=== PATIENT | male | born 1930 | race Hispanic/Latino ===

== ENCOUNTER 2016-07-29 19:24 | Inpatient (IN) | payer MEDICARE ==
[2016-07-29] MEDS ORDERED: TYLENOL PO STA (22:15)
[2016-07-29] MEDS ORDERED: NACL 0.9% 1000 ML 1,000 ML IV ONE (22:15)
[2016-07-29 23:10] LABS: Basophils % (Auto) 0.1 % (0.0-1.8); Hematocrit 39.4 % (35.5-45.6); Hemoglobin 13.5 gm/dl (11.8-15.2); Mean Corpuscular HGB Conc 34 % (32-34); Mean Corpuscular Hemoglobin 31 pg (28-32); Mean Corpuscular Volume 90 fl (84-94); Platelet Count 210 K/mm3 (140-440); Red Blood Count 4.37 M/mm3 (3.65-5.03); Red Cell Distribution Width 14.3 % (13.2-15.2); White Blood Count 19.4 K/mm3 (4.5-11.0)
[2016-07-29] MEDS ORDERED: BOOSTRIX IM ONE (23:21)
[2016-07-29] MEDS ORDERED: VANCOMYCIN VIAL IV ONE (23:21)
[2016-07-29] MEDS ORDERED: ZOSYN/NS 4.5GM/100ML 100 ML IV ONE (23:21)
[2016-07-29 23:22] LABS: INR 1.98 (0.87-1.13)
--- NOTE | 2016-07-29 23:24 | Emergency Department Report ---
ED General Adult HPI - General Chief complaint: Wound/Laceration Stated complaint: RT ELBOW SWELLING Time Seen by Provider: 07/29/16 23:15 Source: patient, EMS, old records reviewed Mode of arrival: Stretcher Limitations: Altered Mental Status - History of Present Illness Initial comments: This is an 85-year-old male, previously unknown. Has a history of heart disease status post bypass, psoriasis, hypertension, dementia. He is on systemic anticoagulation ( pradaxa.) Is enclosed medical records do not clarify why. He is sent to the ER for hypotension, and right upper extremity redness and swelling. As per enclosed medical records, patient apparently has been lethargic and hypotensive, and has a swollen right elbow secondary to fall on July 28. Patient is pleasantly demented and confused, and he cannot describe any exacerbating or relieving factors. He denies headache, neck pain, chest pain, abdominal pain and shortness of breath. He does admit to right upper extremity pain, but cannot further clarified. -: unknown Radiation: extremity Quality: other (as per history of present illness) Consistency: other (as per history of present illness) Improves with: other (as per history of present illness) Worsens with: other (as per history of present illness) Associated Symptoms: confusion, other (as per history of present illness) - Related Data Home Medications Medication Instructions Recorded Confirmed Last Taken Acetaminophen 2 tab PO Q4H PRN 07/30/16 07/30/16 Unknown Albuterol Sulfate [Ventolin HFA] 2 puff IH Q6H PRN 07/30/16 07/30/16 Unknown Dabigatran [Pradaxa] 150 mg PO BID 07/30/16 07/30/16 Unknown Furosemide [Lasix] 20 mg PO QDAY 07/30/16 07/30/16 Unknown Lisinopril [Zestril] 5 mg PO QDAY 07/30/16 07/30/16 Unknown Mag Hydrox/Al Hydrox/Simeth 30 ml PO Q2H PRN 07/30/16 07/30/16 Unknown [Maalox Advanced Suspension] Magnesium Hydroxide [Milk of 30 ml PO Q12H PRN 07/30/16 07/30/16 Unknown Magnesia] Metoprolol Xl [Metoprolol 25 mg PO QDAY 07/30/16 07/30/16 Unknown SUCCINATE ER TAB] OLANzapine [ZyPREXA] 5 mg PO BID 07/30/16 07/30/16 Unknown Pantoprazole [Protonix] 40 mg PO QDAY 07/30/16 07/30/16 Unknown Simvastatin [Zocor TAB] 20 mg PO QHS 07/30/16 07/30/16 Unknown chlorproMAZINE [Thorazine INJ] 25 mg IM Q4H PRN 07/30/16 07/30/16 Unknown Allergies Allergy/AdvReac Type Severity Reaction Status Date / Time No Known Allergies Allergy Verified 07/29/16 22:15 ED Review of Systems ROS: Stated complaint: RT ELBOW SWELLING Other details as noted in HPI Comment: Unobtainable due to pts medical conditions Constitutional: fever, malaise, weakness Eyes: as per HPI ENT: as per HPI Respiratory: see HPI Cardiovascular: as per HPI Gastrointestinal: as per HPI Genitourinary: as per HPI Musculoskeletal: as per HPI, joint swelling, arthralgia, myalgia Skin: rash, lesions Neurological: weakness, confusion Psychiatric: as per HPI ED Past Medical Hx - Past Medical History Previous Medical History?: Yes Hx Hypertension: Yes Hx Dementia: Yes Additional medical history: CAD - Surgical History Past Surgical History?: Yes Hx Open Heart Surgery: Yes - Social History Smoking Status: Unknown if ever smoked Substance Use Type: None - Medications Home Medications: Home Medications Medication Instructions Recorded Confirmed Last Taken Type Acetaminophen 2 tab PO Q4H PRN 07/30/16 07/30/16 Unknown History Albuterol Sulfate [Ventolin HFA] 2 puff IH Q6H PRN 07/30/16 07/30/16 Unknown History Dabigatran [Pradaxa] 150 mg PO BID 07/30/16 07/30/16 Unknown History Furosemide [Lasix] 20 mg PO QDAY 07/30/16 07/30/16 Unknown History Lisinopril [Zestril] 5 mg PO QDAY 07/30/16 07/30/16 Unknown History Mag Hydrox/Al Hydrox/Simeth 30 ml PO Q2H PRN 07/30/16 07/30/16 Unknown History [Maalox Advanced Suspension] Magnesium Hydroxide [Milk of 30 ml PO Q12H PRN 07/30/16 07/30/16 Unknown History Magnesia] Metoprolol Xl [Metoprolol 25 mg PO QDAY 07/30/16 07/30/16 Unknown History SUCCINATE ER TAB] OLANzapine [ZyPREXA] 5 mg PO BID 07/30/16 07/30/16 Unknown History Pantoprazole [Protonix] 40 mg PO QDAY 07/30/16 07/30/16 Unknown History Simvastatin [Zocor TAB] 20 mg PO QHS 07/30/16 07/30/16 Unknown History chlorproMAZINE [Thorazine INJ] 25 mg IM Q4H PRN 07/30/16 07/30/16 Unknown History ED Physical Exam - General Limitations: Altered Mental Status General appearance: alert, in no apparent distress - Head Head exam: Present: atraumatic, normocephalic - Eye Eye exam: Present: normal appearance, EOMI - ENT ENT exam: Present: normal exam, normal orophraynx, mucous membranes dry - Neck Neck exam: Present: normal inspection, full ROM. Absent: tenderness, meningismus - Respiratory Respiratory exam: Present: normal lung sounds bilaterally. Absent: respiratory distress, wheezes, rales, rhonchi, stridor, chest wall tenderness - Cardiovascular Cardiovascular Exam: Present: regular rate, normal rhythm, normal heart sounds. Absent: bradycardia, tachycardia, irregular rhythm, systolic murmur, diastolic murmur, rubs, gallop - GI/Abdominal GI/Abdominal exam: Present: soft, normal bowel sounds. Absent: distended, tenderness, guarding, rebound, rigid, pulsatile mass - Rectal Rectal exam: Present: deferred - Extremities Exam Extremities exam: Present: full ROM, tenderness, normal capillary refill, joint swelling, other (the left upper extremity is within normal limits. The pelvis is stable. the bilateral lower extremities are unremarkable.Right upper extremity demonstrates erythema, redness, warmth and swelling from the distal bicep to the proximal forearm. The compartments are soft, there is no pain with passive range of motion of the fingers, there is minimal pain with passive range of motion of the elbow. On the posterior/lateral aspect of the right elbow, there is a 1 x 1 cm skin defect, skin avulsion, and some purulent discharge noted. 2+ pulses are noted in 4 extremities.) - Back Exam Back exam: Present: normal inspection, full ROM. Absent: tenderness, CVA tenderness (R), CVA tenderness (L), muscle spasm, paraspinal tenderness, vertebral tenderness - Neurological Exam Neurological exam: Present: altered, other (patient is presently demented. Moves 4 extremities spontaneously. Sensation intact to light touch in 4 extremities.). Absent: motor sensory deficit - Psychiatric Psychiatric exam: Present: other (patient demented) - Skin Skin exam: Present: rash, erythema, abrasion ED Course Vital Signs 07/29/16 07/29/16 07/29/16 21:59 22:00 22:15 Temperature 103.9 F H Pulse Rate 91 H 91 H 91 H Respiratory 22 18 22 Rate Blood Pressure 124/107 102/54 O2 Sat by Pulse 97 96 Oximetry 07/29/16 07/29/16 07/29/16 22:31 22:45 23:00 Temperature Pulse Rate 94 H 86 89 Respiratory 16 15 16 Rate Blood Pressure 122/53 68/35 99/53 O2 Sat by Pulse 95 95 95 Oximetry 07/29/16 07/29/16 07/29/16 23:15 23:17 23:30 Temperature Pulse Rate 85 93 H 91 H Respiratory 16 18 16 Rate Blood Pressure 97/51 97/51 104/57 O2 Sat by Pulse 94 93 93 Oximetry 07/29/16 07/30/16 07/30/16 23:45 00:01 00:02 Temperature Pulse Rate 94 H 92 H 93 H Respiratory 21 17 21 Rate Blood Pressure 104/57 108/79 108/79 O2 Sat by Pulse 92 94 94 Oximetry 07/30/16 07/30/16 07/30/16 00:09 00:15 01:07 Temperature Pulse Rate 94 H 101 H Respiratory 22 14 19 Rate Blood Pressure 113/53 113/53 O2 Sat by Pulse 98 95 Oximetry 07/30/16 07/30/16 07/30/16 01:15 01:31 01:45 Temperature Pulse Rate 94 H 93 H 96 H Respiratory 24 16 20 Rate Blood Pressure 113/53 92/33 91/52 O2 Sat by Pulse 92 92 89 Oximetry 07/30/16 07/30/16 07/30/16 02:01 02:03 02:05 Temperature Pulse Rate 96 H 93 H Respiratory 12 19 20 Rate Blood Pressure 91/52 76/52 O2 Sat by Pulse 87 93 Oximetry 07/30/16 07/30/16 07/30/16 02:07 02:15 02:31 Temperature 102.1 F H Pulse Rate 92 H 95 H Respiratory 14 18 Rate Blood Pressure 93/45 91/50 O2 Sat by Pulse 94 92 Oximetry 07/30/16 07/30/16 07/30/16 02:45 03:00 03:15 Temperature Pulse Rate 115 H 118 H 123 H Respiratory 17 24 14 Rate Blood Pressure 103/58 95/52 95/52 O2 Sat by Pulse 94 95 95 Oximetry 07/30/16 07/30/16 07/30/16 03:31 03:45 04:00 Temperature Pulse Rate 113 H 117 H 115 H Respiratory 21 21 21 Rate Blood Pressure 84/52 84/40 83/47 O2 Sat by Pulse 93 93 92 Oximetry 07/30/16 07/30/16 07/30/16 04:03 04:15 04:30 Temperature Pulse Rate 119 H 122 H 126 H Respiratory 23 21 27 H Rate Blood Pressure 83/47 89/60 99/51 O2 Sat by Pulse 93 94 93 Oximetry 07/30/16 07/30/16 07/30/16 04:45 05:00 05:15 Temperature Pulse Rate 121 H 120 H 125 H Respiratory 18 19 29 H Rate Blood Pressure 102/60 102/57 79/45 O2 Sat by Pulse 94 92 94 Oximetry - Reevaluation(s) Reevaluation #1: 07/30/16 00:10 Differential diagnosis: Intracranial injury, cervical spine injury, urinary tract infection, pneumonia, right upper extremity cellulitis, myositis, abscess Assessment and plan: 85-year-old male with fever, elevated lactic acid, obvious right upper extremity cellulitis and infection, borderline renal insufficiency which apparently is chronic. He will require aggressive IV antibiotic therapy, IV fluids. Noncontrast CAT scan of the head and cervical spine are pending. Blood cultures, urine cultures, wound cultures are ordered. Patient to remain in the ER pending results of the CAT scans. Assuming no intracranial bleed, patient to be admitted. Dr Calhoun accepts patient assuming no indication for transfer Reevaluation #2: 07/30/16 02:19 Blood pressure in the 70s/80s. Patient is finishing up later 3. We will order a fourth liter of IV fluid, and place a central line to initiate vasopressor therapy. 07/30/16 03:18 Right-sided femoral sterile central line was placed by myself. We attempted to contact family, nobody answered. Given the patient meets sepsis criteria and is demonstrating signs of hemodynamic instability, he is administratively consented by myself and Dr. Calhoun for central line. 07/30/16 03:18 - Central Line Placement Right Femoral Consent Obtained: emergent situation Time Out Performed: Yes Patient Placed on Monitor/Pulse Ox: Yes Prep: mask, gown Central Line Prep: Povidone-Iodine 1%, Chlorhexidine scrub, sterile drapes applied Local Anesthesia Used: Lidocaine 1%, with Epi Amount of Anesthesia Used (mls): 8 Ultrasound Used for Placement: Yes Central Line Lumen Inserted: triple Bloods Obtained for Lab: No Central Line Position: good blood return, all ports aspirated, flus, sutured in place with 2-0 Dressing Applied: Tegaderm Patient Tolerated Procedure: well Complications: arterial puncture/cannula (initially attempted right-sided internal jugular placement. Right carotid artery was cannulated. Needle was retracted, direct pressure was held for 5 minutes. After pressure was withdrawn , no obvious hematoma or expansile mass was noted. The right-sided attempt was aborted, and in the right femoral approach was then taken, after the patient was reprepped, and redraped. The right femoral vein was cannulated with one attempt with ultrasound guidance with no obvious complications.) ED Medical Decision Making - Lab Data Result diagrams: 07/29/16 22:15 07/29/16 22:55 Vital Signs 07/29/16 07/29/16 07/29/16 21:59 22:00 22:15 Temperature 103.9 F H Pulse Rate 91 H 91 H 91 H Respiratory 22 18 22 Rate Blood Pressure 124/107 102/54 O2 Sat by Pulse 97 96 Oximetry 07/29/16 07/29/16 07/29/16 22:31 22:45 23:00 Temperature Pulse Rate 94 H 86 89 Respiratory 16 15 16 Rate Blood Pressure 122/53 68/35 99/53 O2 Sat by Pulse 95 95 95 Oximetry 07/29/16 07/29/16 07/29/16 23:15 23:17 23:30 Temperature Pulse Rate 85 93 H 91 H Respiratory 16 18 16 Rate Blood Pressure 97/51 97/51 104/57 O2 Sat by Pulse 94 93 93 Oximetry 07/29/16 07/30/16 23:45 00:01 Temperature Pulse Rate 94 H 92 H Respiratory 21 17 Rate Blood Pressure 104/57 108/79 O2 Sat by Pulse 92 94 Oximetry Lab Results 07/29/16 07/29/16 07/29/16 Range/Units 22:15 22:55 22:55 WBC 19.4 H (4.5-11.0) K/mm3 RBC 4.37 (3.65-5.03) M/mm3 Hgb 13.5 (11.8-15.2) gm/dl Hct 39.4 (35.5-45.6) % MCV 90 (84-94) fl MCH 31 (28-32) pg MCHC 34 (32-34) % RDW 14.3 (13.2-15.2) % Plt Count 210 (140-440) K/mm3 Lymph % (Auto) 5.4 L (13.4-35.0) % [place] % (Auto) 4.6 (0.0-7.3) % Eos % (Auto) 0.0 (0.0-4.3) % Baso % (Auto) 0.1 (0.0-1.8) % Lymph # 1.0 L (1.2-5.4) K/mm3 [place] # 0.9 H (0.0-0.8) K/mm3 Eos # 0.0 (0.0-0.4) K/mm3 Baso # 0.0 (0.0-0.1) K/mm3 Seg Neutrophils % 89.9 H (40.0-70.0) % Seg Neutrophils # 17.5 H (1.8-7.7) K/mm3 PT 22.5 H (12.2-14.9) Sec. INR 1.98 H (0.87-1.13) VBG pH (7.320-7.420) Sodium 134 L (137-145) mmol/L Potassium 3.8 (3.6-5.0) mmol/L Chloride 96.6 L (98-107) mmol/L Carbon Dioxide 21 L (22-30) mmol/L Anion Gap 20 mmol/L BUN 36 H (9-20) mg/dL Creatinine 1.5 (0.8-1.5) mg/dL Estimated GFR 45 ml/min BUN/Creatinine Ratio 24.00 % Glucose 96 (75-100) mg/dL Lactic Acid (0.7-2.0) mmol/L Calcium 8.1 L (8.4-10.2) mg/dL Total Bilirubin 1.2 (0.1-1.2) mg/dL AST 55 H (5-40) units/L ALT 22 (7-56) units/L Alkaline Phosphatase 56 (35-129) units/L Total Protein 5.8 L (6.3-8.2) g/dL Albumin 2.9 L (3.9-5) g/dL Albumin/Globulin Ratio 1.0 % 07/29/16 07/29/16 Range/Units 22:55 22:55 WBC (4.5-11.0) K/mm3 RBC (3.65-5.03) M/mm3 Hgb (11.8-15.2) gm/dl Hct (35.5-45.6) % MCV (84-94) fl MCH (28-32) pg MCHC (32-34) % RDW (13.2-15.2) % Plt Count (140-440) K/mm3 Lymph % (Auto) (13.4-35.0) % [place]ner % (Auto) (0.0-7.3) % Eos % (Auto) (0.0-4.3) % Baso % (Auto) (0.0-1.8) % Lymph # (1.2-5.4) K/mm3 [place] # (0.0-0.8) K/mm3 Eos # (0.0-0.4) K/mm3 Baso # (0.0-0.1) K/mm3 Seg Neutrophils % (40.0-70.0) % Seg Neutrophils # (1.8-7.7) K/mm3 PT (12.2-14.9) Sec. INR (0.87-1.13) VBG pH 7.405 (7.320-7.420) Sodium (137-145) mmol/L Potassium (3.6-5.0) mmol/L Chloride (98-107) mmol/L Carbon Dioxide (22-30) mmol/L Anion Gap mmol/L BUN (9-20) mg/dL Creatinine (0.8-1.5) mg/dL Estimated GFR ml/min BUN/Creatinine Ratio % Glucose (75-100) mg/dL Lactic Acid 3.4 H* (0.7-2.0) mmol/L Calcium (8.4-10.2) mg/dL Total Bilirubin (0.1-1.2) mg/dL AST (5-40) units/L ALT (7-56) units/L Alkaline Phosphatase (35-129) units/L Total Protein (6.3-8.2) g/dL Albumin (3.9-5) g/dL Albumin/Globulin Ratio % - EKG Data 07/30/16 00:11 Normal sinus, first-degree AV block, 88 bpm, left axis deviation, normal QTC, nonspecific T-wave abnormality, motion artifact noted, not morphologically consistent with STEMI. - Radiology Data Radiology results: report reviewed, image reviewed interpreted by me: xr chest: chronic changes noted, status post median sternotomy, no acute disease. Pelvis x-ray demonstrates DJD, no acute disease or pathology. Right upper extremity elbow x-ray: Tissue swelling, no acute disease or pathology. No obvious fracture. No obvious gas Repeat chest x-ray status post central line attempts demonstrates no pneumothorax. Chronic changes are noted. Right upper extremity noncontrast CAT scan of the arm demonstrates subcutaneous fat stranding and edema, no fracture, suspected cellulitis, no definable abscess is noted. Critical Care Time: Yes Critical care time in (mins) excluding proc time.: 45 Critical care attestation.: If time is entered above; I have spent that time in minutes in the direct care of this critically ill patient, excluding procedure time. Critical Care Time: Critical care time includes multiple bedside evaluations, interpretation of laboratory studies, radiology studies, time spent managing a patient who is critically ill with sepsis secondary to soft tissue infection. This excludes procedure time. ED Disposition Clinical Impression: Sepsis Qualifiers: Sepsis type: sepsis due to unspecified organism Qualified Code(s): A41.9 - Sepsis, unspecified organism Disposition: OP ADMITTED IP TO THIS HOSP Is pt being admited?: Yes Does the pt Need Aspirin: No Condition: Fair
[2016-07-29 23:31] LABS: Albumin 2.9 g/dL (3.9-5); Bilirubin,Total 1.2 mg/dL (0.1-1.2); Calcium 8.1 mg/dL (8.4-10.2); Chloride 96.6 mmol/L (98-107); Potassium 3.8 mmol/L (3.6-5.0); Total Protein 5.8 g/dL (6.3-8.2)
[2016-07-29] MEDS ORDERED: NACL 0.9% 500 ML IV SCH (23:45)
[2016-07-29] MEDS ORDERED: NACL 0.9% 1000 ML 1,000 ML ONE (23:45)
[2016-07-29] MEDS ORDERED: VANCOMYCIN PHARMACY TO DOSE IV SCH (23:45)
--- NOTE | 2016-07-30 00:47 | Cat Scan Report ---
FINAL REPORT EXAM: CT HEAD/BRAIN WO CON HISTORY: fall ams COMPARISON: None available. TECHNIQUE: Axial images obtained skull base through vertex. FINDINGS: No acute intracranial hemorrhage, midline shift or pathologic extra axial fluid collection. Age related volume loss with compensatory dilatation of the ventricular system and chronic small vessel ischemic disease. Remote posterior left frontal and temporal lobe infarct measuring approximately 1.6 x 1.6 centimeters in axial dimension. Otherwise, mendoza-white differentiation preserved. Calvarium grossly intact. Moderate polypoid mucosal thickening along the floors of the maxillary sinuses. Mastoid air cells are clear. Moderate calcification of carotid siphons and left vertebral artery. Visualized orbits are grossly unremarkable. IMPRESSION: No grossly acute intracranial abnormality. Mild age related volume loss and chronic small vessel ischemic disease. Remote left frontal temporal lobe infarct.
[2016-07-30] MEDS ORDERED: NACL 0.9% 1000 ML IV ONE (01:00)
[2016-07-30] MEDS ORDERED: VANCOMYCIN VIAL 1,250 MG in NACL 0.9% 250ML 250 ML IV ONE (01:00)
--- NOTE | 2016-07-30 01:00 | Cat Scan Report ---
FINAL REPORT EXAM: CT CERVICAL SPINE WO CON HISTORY: fall ams COMPARISON: None available. TECHNIQUE: Axial images obtained through the cervical spine. Additional sagittal and coronal reformatted images were obtained. FINDINGS: Normal lordotic curvature of the cervical spine. Cervical vertebral body heights are preserved. No acute fracture or traumatic subluxation. Odontoid process, articular pillars and occipital condyles are intact. No significant bony encroachment on the central canal. Mild to moderate right foraminal narrowing at several levels due to facet degenerative changes and uncovertebral hypertrophy. Prominent calcification at the right carotid bifurcation. IMPRESSION: No acute fracture or subluxation of the cervical spine. Mild to moderate right-sided foraminal narrowing at several levels due to facet degenerative changes and uncovertebral hypertrophy. No significant bony degenerative changes otherwise.
[2016-07-30] MEDS ORDERED: NACL 0.9% 1000 ML 1,000 ML IV ONE ×2 (01:32→02:17)
--- NOTE | 2016-07-30 01:38 | History and Physical Report ---
History of Present Illness Chief complaint: confusion History of present illness: 85 YO Male with HTN, Dementia, CAD S/P CABG, Debility, Fall, HLD, CHF(suspected ) presents to ED for evaluation. Pt unable to provide history. Pt found to have Hypotension and transported to ED for evaluation. Pt found to have arm cellulitis In ED, as well as hypotension and sepsis. Pt admitted to ICU. Past History Past Medical History: CAD, hyperlipidemia Past Surgical History: CABG Social history: Family history: hypertension Medications and Allergies Allergies Allergy/AdvReac Type Severity Reaction Status Date / Time No Known Allergies Allergy Verified 07/29/16 22:15 Home Medications Medication Instructions Recorded Confirmed Last Taken Type Acetaminophen 2 tab PO Q4H PRN 07/30/16 07/30/16 Unknown History Albuterol Sulfate [Ventolin HFA] 2 puff IH Q6H PRN 07/30/16 07/30/16 Unknown History Dabigatran [Pradaxa] 150 mg PO BID 07/30/16 07/30/16 Unknown History Furosemide [Lasix] 20 mg PO QDAY 07/30/16 07/30/16 Unknown History Lisinopril [Zestril] 5 mg PO QDAY 07/30/16 07/30/16 Unknown History Mag Hydrox/Al Hydrox/Simeth 30 ml PO Q2H PRN 07/30/16 07/30/16 Unknown History [Maalox Advanced Suspension] Magnesium Hydroxide [Milk of 30 ml PO Q12H PRN 07/30/16 07/30/16 Unknown History Magnesia] Metoprolol Xl [Metoprolol 25 mg PO QDAY 07/30/16 07/30/16 Unknown History SUCCINATE ER TAB] OLANzapine [ZyPREXA] 5 mg PO BID 07/30/16 07/30/16 Unknown History Pantoprazole [Protonix] 40 mg PO QDAY 07/30/16 07/30/16 Unknown History Simvastatin [Zocor TAB] 20 mg PO QHS 07/30/16 07/30/16 Unknown History chlorproMAZINE [Thorazine INJ] 25 mg IM Q4H PRN 07/30/16 07/30/16 Unknown History Active Meds: Active Medications Vancomycin HCl 1,250 mg/ (Sodium Chloride) 250 mls @ 166.667 mls/hr IV Q24H ORLIN Vancomycin HCl 1,250 mg/ (Sodium Chloride) 250 mls @ 166.667 mls/hr IV ONCE.ED ONE Stop: 07/30/16 02:29 Sodium Chloride (Nacl 0.9% 1000 Ml) 1,000 mls @ 999 mls/hr IV ONCE ONE Stop: 07/30/16 02:32 Vancomycin HCl (Vancomycin Pharmacy To Dose) 1 each IV PKCONSULT ORLIN PRN Reason: Protocol Review of Systems ROS unobtainable: due to mental status Exam - Constitutional Vitals: Temp Pulse Resp BP Pulse Ox 103.9 F H 92 H 22 108/79 98 07/29/16 21:59 07/30/16 00:01 07/30/16 00:09 07/30/16 00:01 07/30/16 00:09 General appearance: Present: severe distress - EENT Eyes: Present: PERRL ENT: hearing intact, clear oral mucosa - Neck Neck: Present: supple, normal ROM - Respiratory Respiratory effort: normal Respiratory: bilateral: diminished - Cardiovascular Heart Sounds: Present: S1 & S2. Absent: rub, click - Extremities Extremities: pulses symmetrical, No edema Peripheral Pulses: within normal limits - Abdominal General gastrointestinal: Present: soft, non-tender, non-distended, normal bowel sounds Male genitourinary: Present: normal - Integumentary Integumentary: Present: clear, warm, dry - Musculoskeletal Musculoskeletal: generalized weakness - Psychiatric Psychiatric: no intact judgment & insight, no memory intact - Neurologic Neurologic: CNII-XII intact, moves all extremities Results - Labs CBC & Chem 7: 07/29/16 22:15 07/29/16 22:55 Labs: Abnormal lab results 07/29/16 07/29/16 07/29/16 Range/Units 22:15 22:55 22:55 WBC 19.4 H (4.5-11.0) K/mm3 Lymph % (Auto) 5.4 L (13.4-35.0) % Lymph # 1.0 L (1.2-5.4) K/mm3 [place] # 0.9 H (0.0-0.8) K/mm3 Seg Neutrophils % 89.9 H (40.0-70.0) % Seg Neutrophils # 17.5 H (1.8-7.7) K/mm3 PT 22.5 H (12.2-14.9) Sec. INR 1.98 H (0.87-1.13) Sodium 134 L (137-145) mmol/L Chloride 96.6 L (98-107) mmol/L Carbon Dioxide 21 L (22-30) mmol/L BUN 36 H (9-20) mg/dL Lactic Acid (0.7-2.0) mmol/L Calcium 8.1 L (8.4-10.2) mg/dL AST 55 H (5-40) units/L Total Creatine Kinase (55-170) units/L Total Protein 5.8 L (6.3-8.2) g/dL Albumin 2.9 L (3.9-5) g/dL 07/29/16 07/29/16 Range/Units 22:55 22:55 WBC (4.5-11.0) K/mm3 Lymph % (Auto) (13.4-35.0) % Lymph # (1.2-5.4) K/mm3 [place] # (0.0-0.8) K/mm3 Seg Neutrophils % (40.0-70.0) % Seg Neutrophils # (1.8-7.7) K/mm3 PT (12.2-14.9) Sec. INR (0.87-1.13) Sodium (137-145) mmol/L Chloride (98-107) mmol/L Carbon Dioxide (22-30) mmol/L BUN (9-20) mg/dL Lactic Acid 3.4 H* (0.7-2.0) mmol/L Calcium (8.4-10.2) mg/dL AST (5-40) units/L Total Creatine Kinase 1143 H (55-170) units/L Total Protein (6.3-8.2) g/dL Albumin (3.9-5) g/dL Assessment and Plan - Patient Problems (1) Sepsis Current Visit: Yes Status: Acute Qualifiers: Sepsis type: sepsis due to unspecified organism Qualified Code(s): A41.9 - Sepsis, unspecified organism Plan to address problem: IV abx, IVF, supportive care, pressor support as clinically indicated, monitor uop q shift. The high probability of a clinically significant, sudden or life threatening deterioration of the [respiratory, cardiac,renal] system(s) required my full and direct attention, intervention and personal management. The aggregate critical care time was [65] minutes. This time is in addition to time spent performing reported procedures but includes the following: [x] Data Review and interpretation [x] Patient assessment and monitoring of vital signs [x] Documentation [x] Medication orders and management (2) Acute renal failure (ARF) Current Visit: Yes Status: Acute Plan to address problem: IVF, monitor uop q shift (3) Cellulitis of arm Current Visit: Yes Status: Acute Plan to address problem: IV abx, supportive care. wound care (4) DVT prophylaxis Current Visit: Yes Status: Acute
[2016-07-30] MEDS ORDERED: TYLENOL PO PRN ×2 (01:40→01:45)
[2016-07-30] MEDS ORDERED: MILK OF MAGNESIA PO PRN (01:45)
[2016-07-30] MEDS ORDERED: ALUM-MAG HYDROX-SIMETH 200-200-20MG/5ML PO PRN (01:45)
[2016-07-30] MEDS ORDERED: PROAIR IH PRN (01:45)
[2016-07-30] MEDS ORDERED: THORAZINE IM PRN (01:45)
[2016-07-30] MEDS ORDERED: PROVENTIL IH PRN (02:04)
[2016-07-30] MEDS ORDERED: KETALAR IV ONE ×2 (02:18→02:22)
[2016-07-30] MEDS ORDERED: XYLOCAINE 2%/EPI 1:100,000 INFILTRATI ONE (02:18)
[2016-07-30] MEDS ORDERED: HALDOL ONE (02:52)
[2016-07-30] MEDS ORDERED: HALDOL IM ONE (02:58)
--- NOTE | 2016-07-30 03:32 | Admit Criteria Form ---
Admission Criteria Documentation: SEPSIS and OTHER FEBRILE ILLNESS, W/O FOCAL INFECTION Clinical Indications for Admission to Inpatient Care ( Place 'X' for any and all applicable criteria): Admission is indicated for ANY ONE of the following (1)(2)(3)(4): [ ] I. Bacteremia [ ]II. Suspected or identified specific infection requiring hospitalization (eg, meningitis, endocarditis) [ ]III. Hemodynamic instability [ ]IV. Altered mental status [ ]V. Failure or unavailability of outpatient antimicrobial treatment [ ]. Hypoxemia [ ]VII. Seizures [ ]VIII. High-risk febrile neutropenia [ ]IX. Need for parenteral antibiotic in patient who is likely to abuse vascular access device (eg, injection drug user) [A](7) [ ]X. Temperature greater than 104.9 degrees F (40.5 degrees C) (oral) [ X]XI. Inpatient admission required rather than observation care because of ANY ONE of the following: [ ]1) Specific infection identified that is too severe for outpatient treatment or observation care trial [X ]2) Metabolic disorder (eg, hypoglycemia, hyperglycemia, metabolic acidosis) that is severe or persistent [ ]3) Temperature greater than 103.1 degrees F (39.5 degrees C) ( oral) that is not responsive to observation care treatment [ ]4) IV fluid to replace significant ongoing (eg, for over 24 hours) losses (> 3 L/m2 per day) [ ]5) Supplemental oxygen or respiratory treatments for over 24 hours that is performable only in acute inpatient setting [ ]6) Parenteral nutrition regimen need that must be implemented on inpatient basis [ ]7) Strict or protective (eg, laminar flow) isolation [ ]8) Other condition, treatment or monitoring requiring inpatient admission Extended stay beyond goal length of stay may be needed for(1)(3) [ ]a) Sepsis or septic shock(22) [ ]b) Positive blood cultures [ ]c) Insufficient oral intake [ ]d) High-risk febrile neutropenia(29)(30) [ ]e) Continued fever and clinical instability [ ]f) Clinically active comorbid illness (e.g,heart failure, renal failure , diabetes) The original [facility] content created by Jewel Castillo has been revised. The portions of the content which have been revised are identified through the use of italic text or in bold, and Jewel Castillo has neither reviewed nor approved the modified material. All other unmodified content is copyright [facility]. Please see references footnoted in the original [facility] edition 2016 Admission Criteria Met: Yes
[2016-07-30] MEDS: LEVOPHED DRIP 4 MG/NS 250 ML 250 ML IV SCH (03:51)
[2016-07-30] MEDS: NACL 0.45% 1000 ML 1,000 ML IV SCH ×2 (04:05→13:32)
[2016-07-30 04:17] LABS: Bilirubin,Urine NEG (Negative); Blood,Urine MOD (Negative); Ketones,Urine NEG (Negative); Leukocyte Esterase,Urine NEG (Negative); Mucus,Urine FEW /HPF; Nitrite,Urine NEG (Negative)
--- NOTE | 2016-07-30 08:01 | XRay Report ---
Portable supine chest: There is a generally coarse overall bronchovascular pattern throughout both lungs. There is a questionable area of focal atelectasis or infiltrate below right hilum. There is no pneumothorax. Coronary bypass changes are noted with a relatively normal-sized heart and vascular congestion. Compared to the recent study of July 29 there is no interval change. Impression: Chronic lung disease with questionable right infrahilar infiltrate.
--- NOTE | 2016-07-30 08:04 | XRay Report ---
Portable chest: There is a generalized increased bronchovascular pattern throughout both lungs. There is a questionable area of atelectasis or small infiltrate below the right hilum. There are bypass changes with normal size heart no vascular congestion. No prior study for comparison. Impression: Chronic lung changes. Questionable right infrahilar infiltrate or atelectasis. Right elbow: There is generalized swelling in the distal proximal arm and forearm. No foreign body and no ulceration. No fracture and no displacement. The bones are well-mineralized. Impression: Nonspecific swelling. AP pelvis: There is no fracture. There is degenerative narrowing of the L4-5 interspace. L5-S1 is not well-visualized. No soft tissue abnormality appreciated. Impression: No acute finding. Degenerative lower lumbar changes.
--- NOTE | 2016-07-30 08:32 | Cat Scan Report ---
FINAL REPORT EXAM: CT UPPER EXTREM RT WO CON HISTORY: rue abscess COMPARISON: None available. TECHNIQUE: Contiguous axial images were obtained. FINDINGS: Prominent subcutaneous fat stranding and skin thickening at the posterior margin of the arm and circumferentially along the visualized portions of the mid to proximal forearm. No definable fluid collection by noncontrast CT. Mild degenerative changes of the elbow joint. No focal bony erosive changes. IMPRESSION: Prominent subcutaneous fat stranding and edema along the arm visualized proximal to mid forearm. In the correct clinical setting, this would be concerning for cellulitis. Nonspecific edema could have a similar appearance. No definable abscess on this noncontrast study. No focal bony erosive changes.
[2016-07-30] MEDS ORDERED: PEPCID IV SCH (10:00)
[2016-07-30] MEDS: TOPROL XL PO SCH (10:57)
[2016-07-30] MEDS: LASIX PO SCH (10:57)
[2016-07-30] MEDS: ZOSYN/NS 4.5GM/100ML 100 ML IV SCH ×3 (10:58→23:29)
[2016-07-30] MEDS: ZESTRIL PO SCH (10:58)
[2016-07-30] MEDS: PROTONIX PO SCH (13:40)
[2016-07-30] MEDS: PRADAXA PO SCH ×2 (13:40→23:29)
[2016-07-30] MEDS ORDERED: TYLENOL PR ONE ×2 (14:10→14:16)
[2016-07-30] MEDS ORDERED: CARDIZEM/D5W 100MG/100ML 100 ML IV ONE (18:44)
[2016-07-30] MEDS: CARDIZEM/D5W 100MG/100ML 100 ML IV SCH (18:55)
[2016-07-30] MEDS ORDERED: NACL 0.45% 500 ML IV SCH (22:00)
[2016-07-30] MEDS ORDERED: VANCOMYCIN VIAL 1,250 MG in NACL 0.9% 250ML 250 ML IV SCH (22:00)
[2016-07-30] MEDS: ZOCOR PO SCH (23:29)
[2016-07-30] MEDS: MORPHINE IV PRN (23:46)
[2016-07-31] MEDS: CARDIZEM/D5W 100MG/100ML 100 ML IV SCH ×2 (00:29→08:29)
[2016-07-31] MEDS: ZOSYN/NS 4.5GM/100ML 100 ML IV SCH (06:45)
[2016-07-31] MEDS: LEVOPHED DRIP 4 MG/NS 250 ML 250 ML IV SCH ×3 (06:45→18:45)
[2016-07-31] MEDS: NACL 0.45% 1000 ML 1,000 ML IV SCH ×2 (08:28→18:45)
[2016-07-31] MEDS: ZESTRIL PO SCH (10:00)
[2016-07-31] MEDS: TOPROL XL PO SCH (10:00)
[2016-07-31] MEDS: LASIX PO SCH (10:00)
[2016-07-31] MEDS ORDERED: NACL 0.9% 1000 ML 2,000 ML IV ONE ×2 (10:56→19:42)
[2016-07-31] MEDS: NACL 0.9% 1000 ML 1,000 ML IV SCH ×2 (12:26→16:12)
--- NOTE | 2016-07-31 12:47 | Consultation ---
History of Present Illness - Reason for Consult Consult date: 07/31/16 Sepsis with shock Requesting physician: CHELSEA RIVERA - History of Present Illness 85 y/o male from senior living, brought to ED secondary to right arm swelling and low BP. Concern for cellulitis and sepsis. Central line placed and started on levophed. Transitioned to the unit for further care. At some point developed afib and was started on dilt drip in conjunction with levophed. No family currently at bedside. Based off nursing report, only given about 1 liters of saline prior to starting vasopressor therapy. Past History Past Medical History: CAD, hyperlipidemia Past Surgical History: CABG Social history: Family history: hypertension Medications and Allergies Allergies Allergy/AdvReac Type Severity Reaction Status Date / Time No Known Allergies Allergy Verified 07/29/16 22:15 Home Medications Medication Instructions Recorded Confirmed Last Taken Type Acetaminophen 2 tab PO Q4H PRN 07/30/16 07/30/16 Unknown History Albuterol Sulfate [Ventolin HFA] 2 puff IH Q6H PRN 07/30/16 07/30/16 Unknown History Dabigatran [Pradaxa] 150 mg PO BID 07/30/16 07/30/16 Unknown History Furosemide [Lasix] 20 mg PO QDAY 07/30/16 07/30/16 Unknown History Lisinopril [Zestril] 5 mg PO QDAY 07/30/16 07/30/16 Unknown History Mag Hydrox/Al Hydrox/Simeth 30 ml PO Q2H PRN 07/30/16 07/30/16 Unknown History [Maalox Advanced Suspension] Magnesium Hydroxide [Milk of 30 ml PO Q12H PRN 07/30/16 07/30/16 Unknown History Magnesia] Metoprolol Xl [Metoprolol 25 mg PO QDAY 07/30/16 07/30/16 Unknown History SUCCINATE ER TAB] OLANzapine [ZyPREXA] 5 mg PO BID 07/30/16 07/30/16 Unknown History Pantoprazole [Protonix] 40 mg PO QDAY 07/30/16 07/30/16 Unknown History Simvastatin [Zocor TAB] 20 mg PO QHS 07/30/16 07/30/16 Unknown History chlorproMAZINE [Thorazine INJ] 25 mg IM Q4H PRN 07/30/16 07/30/16 Unknown History Active Meds: Active Medications Acetaminophen (Tylenol) 650 mg PO Q4H PRN PRN Reason: Headache Al Hydrox/Mg Hydrox/Simethicone (Alum-Mag Hydrox-Simeth [phone]/5ml) 30 ml PO Q2H PRN PRN Reason: Indigestion Albuterol (Proventil) 2.5 mg IH Q6HRT PRN PRN Reason: Shortness Of Breath Chlorpromazine HCl (Thorazine) 25 mg IM Q4H PRN PRN Reason: Agitation Dabigatran (Pradaxa) 150 mg PO BID [facility] Last Admin: 07/30/16 23:29 Dose: 150 mg Furosemide (Lasix) 20 mg PO QDAY [facility] Last Admin: 07/30/16 10:57 Dose: Not Given Sodium Chloride (Nacl 0.45% 1000 Ml) 1,000 mls @ 100 mls/hr IV DIRECT [facility] Last Admin: 07/31/16 08:28 Dose: 100 mls/hr Norepinephrine (Levophed Drip 4 Mg/Ns 250 Ml) 250 mls @ 7.5 mls/hr IV TITR ORLIN ; 2 MCG/MIN PRN Reason: Protocol Last Admin: 07/31/16 06:45 Dose: 22.5 mls/hr Ceftriaxone Sodium (Rocephin/Ns 1 Gm/50 Ml) 50 mls @ 100 mls/hr IV Q24HR [facility] Sodium Chloride (Nacl 0.9% 1000 Ml) 1,000 mls @ 999 mls/hr IV Q1H [facility] Stop: 07/31/16 13:59 Last Admin: 07/31/16 12:26 Dose: 999 mls/hr Lisinopril (Zestril) 5 mg PO QDAY [facility] Last Admin: 07/31/16 10:00 Dose: Not Given Magnesium Hydroxide (Milk Of Magnesia) 30 ml PO Q12H PRN PRN Reason: Constipation Metoprolol Succinate (Toprol Xl) 25 mg PO QDAY [facility] Last Admin: 07/31/16 10:00 Dose: Not Given Morphine Sulfate (Morphine) 2 mg IV Q4H PRN PRN Reason: Pain , Severe (7-10) Last Admin: 07/30/16 23:46 Dose: 2 mg Olanzapine (Zyprexa) 5 mg PO BID [facility] Last Admin: 01/05/17 23:29 Dose: 5 mg Pantoprazole Sodium (Protonix) 40 mg PO QDAY [facility] Last Admin: 07/30/16 13:40 Dose: 40 mg Simvastatin (Zocor) 20 mg PO QHS [facility] Last Admin: 07/30/16 23:29 Dose: 20 mg Review of Systems ROS unobtainable: due to mental status Exam - Constitutional Vitals: Temp Pulse Resp BP Pulse Ox 98.5 F 165 H 34 H 114/56 94 07/31/16 11:58 07/31/16 06:45 07/31/16 06:45 07/31/16 06:45 07/31/16 09:10 General appearance: Present: no acute distress - Respiratory Respiratory effort: normal Respiratory: bilateral: CTA - Cardiovascular Rhythm: irregularly irregular (but rate controlled) - Extremities Extremity abnormal: edema (right upper arm) - Abdominal General gastrointestinal: Present: soft, non-tender, normal bowel sounds Results - Labs CBC & Chem 7: 07/29/16 22:15 07/29/16 22:55 - Imaging and Cardiology Chest x-ray: image reviewed (some chronic interstitial changes but no evidence of acute disease, picc in good position) Assessment and Plan 85 y/o male with sepsis and septic shock secondary to upper ext cellulitis. 1. Will stop Dilt drip 2. bolus 2 liters of normal saline then reassess 3. Wean Levophed for MAPs greater than 65 4. Continue IV abx therapy 5. If patient has afib again, would elect to use amio or attempt cardioversion if patient is hypotensive CCt 31 minutes
--- NOTE | 2016-07-31 14:00 | XRay Report ---
PORTABLE CHEST: INDICATION: Left upper arm PICC placement. COMPARISON: Yesterday. FINDINGS: Portable, frontal chest radiograph, 12:28 PM, 07/31/2016 demonstrates new left upper extremity PICC tip at the cavoatrial junction. Stable cardiomediastinal silhouette, aortic knob calcifications, post CABG changes, EKG leads and demineralized bones with few degenerative changes. Slight fluid or thickening along the right minor fissure also again seen with however mild increased hazy bibasilar opacities/effusions, left more than right. Right hemidiaphragm again slightly elevated. CONCLUSION: 1. Interval uncomplicated left upper extremity PICC placement. 2. Interval radiographic worsening with hazy bibasilar opacities/effusions now noted developing with few other stable findings, as above. Please correlate. Thank you for the opportunity to participate in this patient's care.
[2016-07-31 15:07] LABS: BUN/Creatinine Ratio 26.66; Blood Urea Nitrogen 24 mg/dL (9-20); Calcium 7.1 mg/dL (8.4-10.2); Carbon Dioxide 19 mmol/L (22-30); Chloride 102.2 mmol/L (98-107); Glucose 106 mg/dL (75-100); Potassium 3.2 mmol/L (3.6-5.0); Sodium 135 mmol/L (137-145)
[2016-07-31 15:10] LABS: Anion Gap 17 mmol/L
[2016-07-31 15:15] LABS: Hematocrit 36.8 % (35.5-45.6); Hemoglobin 12.4 gm/dl (11.8-15.2); Mean Corpuscular HGB Conc 34 % (32-34); Mean Corpuscular Hemoglobin 30 pg (28-32); Mean Corpuscular Volume 90 fl (84-94); Platelet Count 202 K/mm3 (140-440); Red Blood Count 4.07 M/mm3 (3.65-5.03); Red Cell Distribution Width 14.5 % (13.2-15.2); White Blood Count 15.9 K/mm3 (4.5-11.0)
[2016-07-31] MEDS: PRADAXA PO SCH ×2 (16:11→23:06)
[2016-07-31] MEDS: PROTONIX PO SCH (16:11)
[2016-07-31] MEDS: ROCEPHIN/NS 1 GM/50 ML 50 ML IV SCH (16:11)
[2016-07-31 16:39] LABS: Basophils % (Manual) 0 % (0.0-1.8); Blastocytes % (Manual) 0 %; Eosinophils % (Manual) 0 % (0.0-4.3)
[2016-07-31 16:40] LABS: Anisocytosis Few; Crenated RBC Few; Diff Status Complete
--- NOTE | 2016-07-31 18:22 | Progress Note ---
Assessment and Plan Assessment and plan: 1. Sepsis with septic shock due to right upper extremity cellulitis Broad-spectrum antibiotics, fluid resuscitation, pressors 2. A. fib RVR New onset Was on Diltiazem drip overnight and converted back to sinus rhythm Already anticoagulated with Pradaxa 3. Acute renal failure Likely secondary to vasomotor nephropathy/rhabdomyolysis Continue IV fluids Monitor BUN/creatinine and electrolytes 4. Hypokalemia IV replacement Monitor closely 5. Rhabdomyolysis Continue IV fluids and trend CPK 6. Acute metabolic encephalopathy Treating underlying conditions 7. CAD Status post CABG Beta yary and LASHONDA inhibitor on hold due to hypotension On statin and anticoagulated with Pradaxa 8. Hyperlipidemia Continue statin 9. Psychiatric disorder/dementia On Zyprexa 10. DVT prophylaxis Anticoagulated with Pradaxa The high probability of a clinically significant, sudden or life threatening deterioration of the [] system(s) required my full and direct attention, intervention and personal management. The aggregate critical care time was [35] minutes. This time is in addition to time spent performing reported procedures but includes the following: [x] Data Review and interpretation [x] Patient assessment and monitoring of vital signs [x] Documentation [x] Medication orders and management History Interval history: still on levophed yesterday went in afib RVR, strted on diltiazem and converted back to SR letahrgic, but arousable; confused Hospitalist Physical - Constitutional Vitals: Temp Pulse Resp BP Pulse Ox 97.8 F 110 H 18 128/61 95 07/31/16 16:00 07/31/16 16:15 07/31/16 16:15 07/31/16 16:15 07/31/16 16:15 General appearance: Present: mild distress - EENT Eyes: Present: PERRL, EOM intact. Absent: scleral icterus, conjunctival injection - Neck Neck: Present: supple, normal ROM. Absent: masses or JVD - Respiratory Respiratory effort: normal Respiratory: bilateral: CTA, negative: rhonchi, wheezing - Cardiovascular Rhythm: other (tachycardic) Heart Sounds: Present: S1 & S2. Absent: systolic murmur - Extremities Extremities: no ischemia, abnormal (RUE edema, erhythema, warthm, tenderness) - Abdominal General gastrointestinal: soft, non-tender, non-distended, normal bowel sounds - Psychiatric Psychiatric: other (confused) - Neurologic Neurologic: moves all extremities Results - Labs CBC & Chem 7: 08/02/16 05:00 08/02/16 05:00 Labs: Laboratory Last Values WBC 15.9 K/mm3 (4.5-11.0) H 07/31/16 14:34 RBC 4.07 M/mm3 (3.65-5.03) 07/31/16 14:34 Hgb 12.4 gm/dl (11.8-15.2) 07/31/16 14:34 Hct 36.8 % (35.5-45.6) 07/31/16 14:34 MCV 90 fl (84-94) 07/31/16 14:34 MCH 30 pg (28-32) 07/31/16 14:34 MCHC 34 % (32-34) 07/31/16 14:34 RDW 14.5 % (13.2-15.2) 07/31/16 14:34 Plt Count 202 K/mm3 (140-440) 07/31/16 14:34 Lymph % (Auto) 5.4 % (13.4-35.0) L 07/29/16 22:15 [place] % (Auto) 4.6 % (0.0-7.3) 07/29/16 22:15 Eos % (Auto) 0.0 % (0.0-4.3) 07/29/16 22:15 Baso % (Auto) 0.1 % (0.0-1.8) 07/29/16 22:15 Lymph # 1.0 K/mm3 (1.2-5.4) L 07/29/16 22:15 [place] # 0.9 K/mm3 (0.0-0.8) H 07/29/16 22:15 Eos # 0.0 K/mm3 (0.0-0.4) 07/29/16 22:15 Baso # 0.0 K/mm3 (0.0-0.1) 07/29/16 22:15 Add Manual Diff Complete 07/31/16 14:34 Total Counted 100 07/31/16 14:34 Seg Neutrophils % Hourly Caregiver 07/31/16 14:34 Seg Neuts % (Manual) 96.0 % (40.0-70.0) H 07/31/16 14:34 Band Neutrophils % 0 % 07/31/16 14:34 Lymphocytes % (Manual) 3.0 % (13.4-35.0) L 07/31/16 14:34 Reactive Lymphs % (Man) 0 % 07/31/16 14:34 Monocytes % (Manual) 1.0 % (0.0-7.3) 07/31/16 14:34 Eosinophils % (Manual) 0 % (0.0-4.3) 07/31/16 14:34 Basophils % (Manual) 0 % (0.0-1.8) 07/31/16 14:34 Metamyelocytes % 0 % 07/31/16 14:34 Myelocytes % 0 % 07/31/16 14:34 Promyelocytes % 0 % 07/31/16 14:34 Blast Cells % 0 % 07/31/16 14:34 Nucleated RBC % Not Reportable 07/31/16 14:34 Seg Neutrophils # 17.5 K/mm3 (1.8-7.7) H 07/29/16 22:15 Seg Neutrophils # Man 15.3 K/mm3 (1.8-7.7) H 07/31/16 14:34 Band Neutrophils # 0.0 K/mm3 07/31/16 14:34 Lymphocytes # (Manual) 0.5 K/mm3 (1.2-5.4) L 07/31/16 14:34 Abs React Lymphs (Man) 0.0 K/mm3 07/31/16 14:34 Monocytes # (Manual) 0.2 K/mm3 (0.0-0.8) 07/31/16 14:34 Eosinophils # (Manual) 0.0 K/mm3 (0.0-0.4) 07/31/16 14:34 Basophils # (Manual) 0.0 K/mm3 (0.0-0.1) 07/31/16 14:34 Metamyelocytes # 0.0 K/mm3 07/31/16 14:34 Myelocytes # 0.0 K/mm3 07/31/16 14:34 Promyelocytes # 0.0 K/mm3 07/31/16 14:34 Blast Cells # 0.0 K/mm3 07/31/16 14:34 WBC Morphology Not Reportable 07/31/16 14:34 Hypersegmented Neuts Not Reportable 07/31/16 14:34 Hyposegmented Neuts Not Reportable 07/31/16 14:34 Hypogranular Neuts Not Reportable 07/31/16 14:34 Smudge Cells Not Reportable 07/31/16 14:34 Toxic Granulation Not Reportable 07/31/16 14:34 Toxic Vacuolation Not Reportable 07/31/16 14:34 Dohle Bodies Not Reportable 07/31/16 14:34 Pelger-Huet Anomaly Not Reportable 07/31/16 14:34 Arlene Rods Not Reportable 07/31/16 14:34 Platelet Estimate Appears normal 07/31/16 14:34 Clumped Platelets Not Reportable 07/31/16 14:34 Plt Clumps, EDTA Not Reportable 07/31/16 14:34 Large Platelets Not Reportable 07/31/16 14:34 Giant Platelets Not Reportable 07/31/16 14:34 Platelet Satelliting Not Reportable 07/31/16 14:34 Plt Morphology Comment Not Reportable 07/31/16 14:34 RBC Morphology Not Reportable 07/31/16 14:34 Dimorphic RBCs Not Reportable 07/31/16 14:34 Polychromasia Not Reportable 07/31/16 14:34 Hypochromasia Not Reportable 07/31/16 14:34 Poikilocytosis Not Reportable 07/31/16 14:34 Anisocytosis Few 07/31/16 14:34 Microcytosis Not Reportable 07/31/16 14:34 Macrocytosis Not Reportable 07/31/16 14:34 Spherocytes Not Reportable 07/31/16 14:34 Pappenheimer Bodies Not Reportable 07/31/16 14:34 Sickle Cells Not Reportable 07/31/16 14:34 Target Cells Not Reportable 07/31/16 14:34 Tear Drop Cells Not Reportable 07/31/16 14:34 Ovalocytes Not Reportable 07/31/16 14:34 Helmet Cells Not Reportable 07/31/16 14:34 Brown-Keyser Bodies Not Reportable 07/31/16 14:34 [place] Rings Not Reportable 07/31/16 14:34 Arielle Cells Not Reportable 07/31/16 14:34 Bite Cells Not Reportable 07/31/16 14:34 Crenated Cell Few 07/31/16 14:34 Elliptocytes Not Reportable 07/31/16 14:34 Acanthocytes (Spur) Not Reportable 07/31/16 14:34 Rouleaux Not Reportable 07/31/16 14:34 Hemoglobin C Crystals Not Reportable 07/31/16 14:34 Schistocytes Not Reportable 07/31/16 14:34 Malaria parasites Not Reportable 07/31/16 14:34 Lorenzo Bodies Not Reportable 07/31/16 14:34 Hem Pathologist Commnt No 07/31/16 14:34 PT 22.5 Sec. (12.2-14.9) H 07/29/16 22:55 INR 1.98 (0.87-1.13) H 07/29/16 22:55 VBG pH 7.405 (7.320-7.420) 07/29/16 22:55 Sodium 135 mmol/L (137-145) L 07/31/16 14:34 Potassium 3.2 mmol/L (3.6-5.0) L 07/31/16 14:34 Chloride 102.2 mmol/L (98-107) 07/31/16 14:34 Carbon Dioxide 19 mmol/L (22-30) L 07/31/16 14:34 Anion Gap 17 mmol/L 07/31/16 14:34 BUN 24 mg/dL (9-20) H 07/31/16 14:34 Creatinine 0.9 mg/dL (0.8-1.5) 07/31/16 14:34 Estimated GFR > 60 ml/min 07/31/16 14:34 BUN/Creatinine Ratio 26.66 % 07/31/16 14:34 Glucose 106 mg/dL (75-100) H 07/31/16 14:34 Lactic Acid 3.0 mmol/L (0.7-2.0) H* 07/30/16 01:18 Calcium 7.1 mg/dL (8.4-10.2) L 07/31/16 14:34 Total Bilirubin 1.2 mg/dL (0.1-1.2) 07/29/16 22:55 AST 55 units/L (5-40) H 07/29/16 22:55 ALT 22 units/L (7-56) 07/29/16 22:55 Alkaline Phosphatase 56 units/L (35-129) 07/29/16 22:55 Total Creatine Kinase 1143 units/L (55-170) H 07/29/16 22:55 Total Protein 5.8 g/dL (6.3-8.2) L 07/29/16 22:55 Albumin 2.9 g/dL (3.9-5) L 07/29/16 22:55 Albumin/Globulin Ratio 1.0 % 07/29/16 22:55 Urine Color Lizy (Yellow) 07/30/16 03:29 Urine Turbidity Clear (Clear) 07/30/16 03:29 Urine pH 5.0 (5.0-7.0) 07/30/16 03:29 Ur Specific [place] 1.025 (1.003-1.030) 07/30/16 03:29 Urine Protein 30 mg/dl mg/dL (Negative) 07/30/16 03:29 Urine Glucose (UA) Neg mg/dL (Negative) 07/30/16 03:29 Urine Ketones Neg mg/dL (Negative) 07/30/16 03:29 Urine Blood Mod (Negative) 07/30/16 03:29 Urine Nitrite Neg (Negative) 07/30/16 03:29 Urine Bilirubin Neg (Negative) 07/30/16 03:29 Urine Urobilinogen 2.0 mg/dL (<2.0) 07/30/16 03:29 Ur Leukocyte Esterase Neg (Negative) 07/30/16 03:29 Urine WBC (Auto) 1.0 /HPF (0.0-6.0) 07/30/16 03:29 Urine RBC (Auto) 19.0 /HPF (0.0-6.0) 07/30/16 03:29 U Epithel Cells (Auto) < 1.0 /HPF (0-13.0) 07/30/16 03:29 Amorphous Crystals 1+ 07/30/16 03:29 Hyaline Casts 1 /LPF 07/30/16 03:29 Urine Mucus Few /HPF 07/30/16 03:29 - Imaging and Cardiology EKG: image reviewed Chest x-ray: image reviewed CT Scan - head: report reviewed Imaging and Cardiology: X-ray elbow and CT UE
[2016-07-31] MEDS ORDERED: NACL 0.9% 1000 ML 2,000 ML ONE (19:38)
[2016-07-31] MEDS: ZOCOR PO SCH (23:03)
[2016-08-01] MEDS: NACL 0.45% 1000 ML 1,000 ML IV SCH ×2 (01:13→12:08)
[2016-08-01 05:39] LABS: Hematocrit 36.6 % (35.5-45.6); Mean Corpuscular HGB Conc 33 % (32-34); Mean Corpuscular Hemoglobin 30 pg (28-32); Mean Corpuscular Volume 91 fl (84-94); Platelet Count 206 K/mm3 (140-440); Red Blood Count 4.04 M/mm3 (3.65-5.03); Red Cell Distribution Width 14.7 % (13.2-15.2)
[2016-08-01 06:03] LABS: White Blood Count 20.5 K/mm3 (4.5-11.0)
[2016-08-01 06:06] LABS: BUN/Creatinine Ratio 27.14; Blood Urea Nitrogen 19 mg/dL (9-20); Calcium 7.1 mg/dL (8.4-10.2); Carbon Dioxide 20 mmol/L (22-30); Chloride 104.8 mmol/L (98-107); Creatine Kinase 313 units/L (55-170); Glucose 82 mg/dL (75-100); Sodium 139 mmol/L (137-145)
[2016-08-01 06:17] LABS: Anion Gap 17 mmol/L
[2016-08-01 06:18] LABS: Potassium 2.8 mmol/L (3.6-5.0)
[2016-08-01 07:08] LABS: Basophils % (Manual) 0 % (0.0-1.8); Blastocytes % (Manual) 0 %; Eosinophils % (Manual) 0 % (0.0-4.3)
[2016-08-01 07:10] LABS: Anisocytosis Few; Diff Status Complete
[2016-08-01] MEDS: PROTONIX PO SCH (10:18)
[2016-08-01] MEDS: ROCEPHIN/NS 1 GM/50 ML 50 ML IV SCH (10:18)
[2016-08-01] MEDS: PRADAXA PO SCH ×2 (10:18→22:06)
[2016-08-01] MEDS ORDERED: NACL 0.9% 1000 ML 1,000 ML ONE (11:52)
[2016-08-01] MEDS ORDERED: NACL 0.9% 1000 ML 2,000 ML IV ONE (11:57)
[2016-08-01] MEDS: KCL 10MEQ/100ML 100 ML IV SCH ×4 (12:05→15:23)
--- NOTE | 2016-08-01 14:03 | Progress Note ---
Assessment and Plan 85 y/o male with sepsis and septic shock secondary to upper ext cellulitis. 1. Wean levophed for MAPS >65mmHg 2. Bolus 2 more liters of saline today 3. Continue IV abx therapy 4. If patient has afib again, would elect to use amio or attempt cardioversion if patient is hypotensive. Tachycardia is up and down today. I feel that once he is off levophed rate will be better. 5. Will continue to follow along with you. CCt 31 minutes Subjective Date of service: 08/01/16 Interval history: BP slightly improved today. Levophed was off briefly but had to be restarted. More awake today but slightly confused. WC increased today. No fever Objective - Constitutional Vitals: Vital Signs - 12hr 08/01/16 08/01/16 08/01/16 02:00 02:21 02:40 Temperature Pulse Rate 114 H 114 H 111 H Respiratory 24 25 H 23 Rate Respiratory Rate [right elbow.] Blood Pressure 106/59 109/59 110/63 O2 Sat by Pulse 96 94 93 Oximetry 08/01/16 08/01/16 08/01/16 03:00 03:20 03:41 Temperature Pulse Rate 102 H 93 H 102 H Respiratory 20 12 15 Rate Respiratory Rate [right elbow.] Blood Pressure 109/58 101/65 112/65 O2 Sat by Pulse 95 95 96 Oximetry 08/01/16 08/01/16 08/01/16 04:00 04:21 04:41 Temperature 97.1 F L Pulse Rate 95 H 110 H 105 H Respiratory 17 17 22 Rate Respiratory 22 Rate [right elbow.] Blood Pressure 111/59 111/59 104/51 O2 Sat by Pulse 94 93 94 Oximetry 08/01/16 08/01/16 08/01/16 05:01 05:21 05:41 Temperature Pulse Rate 122 H 117 H 135 H Respiratory 16 25 H 28 H Rate Respiratory Rate [right elbow.] Blood Pressure 135/79 135/79 155/123 O2 Sat by Pulse 96 94 95 Oximetry 08/01/16 08/01/16 06:01 06:21 Temperature Pulse Rate 120 H 121 H Respiratory 21 19 Rate Respiratory Rate [right elbow.] Blood Pressure 155/123 101/80 O2 Sat by Pulse 95 95 Oximetry General appearance: Present: no acute distress - EENT Eyes: PERRL, EOM intact ENT: hearing intact - Neck Neck: supple - Respiratory Respiratory effort: normal Respiratory: bilateral: CTA - Breasts Breasts: deferred - Cardiovascular Rhythm: irregularly irregular (and tachy) Extremity abnormal: edema (of upper ext bilaterally) - Gastrointestinal General gastrointestinal: Present: soft, non-tender Rectal Exam: deferred - Genitourinary Male genitourinary: deferred - Labs CBC & Chem 7: 08/01/16 05:19 08/01/16 05:19 Labs: Abnormal lab results 07/31/16 07/31/16 08/01/16 Range/Units 14:34 14:34 05:19 WBC 15.9 H 20.5 H (4.5-11.0) K/mm3 Seg Neuts % (Manual) 96.0 H 71.0 H (40.0-70.0) % Lymphocytes % (Manual) 3.0 L 11.0 L (13.4-35.0) % Monocytes % (Manual) 8.0 H (0.0-7.3) % Seg Neutrophils # Man 15.3 H 14.6 H (1.8-7.7) K/mm3 Lymphocytes # (Manual) 0.5 L (1.2-5.4) K/mm3 Monocytes # (Manual) 1.6 H (0.0-0.8) K/mm3 Sodium 135 L (137-145) mmol/L Potassium 3.2 L (3.6-5.0) mmol/L Carbon Dioxide 19 L (22-30) mmol/L BUN 24 H (9-20) mg/dL Creatinine (0.8-1.5) mg/dL Glucose 106 H (75-100) mg/dL Calcium 7.1 L (8.4-10.2) mg/dL Total Creatine Kinase (55-170) units/L 08/01/16 Range/Units 05:19 WBC (4.5-11.0) K/mm3 Seg Neuts % (Manual) (40.0-70.0) % Lymphocytes % (Manual) (13.4-35.0) % Monocytes % (Manual) (0.0-7.3) % Seg Neutrophils # Man (1.8-7.7) K/mm3 Lymphocytes # (Manual) (1.2-5.4) K/mm3 Monocytes # (Manual) (0.0-0.8) K/mm3 Sodium (137-145) mmol/L Potassium 2.8 L* (3.6-5.0) mmol/L Carbon Dioxide 20 L (22-30) mmol/L BUN (9-20) mg/dL Creatinine 0.7 L (0.8-1.5) mg/dL Glucose (75-100) mg/dL Calcium 7.1 L (8.4-10.2) mg/dL Total Creatine Kinase 313 H (55-170) units/L
[2016-08-01] MEDS ORDERED: CORDARONE 150 MG in D5W 97 ML IV ONE (16:00)
[2016-08-01] MEDS: CORDARONE 900 MG in D5W 482 ML IV SCH (16:15)
[2016-08-01] MEDS: MORPHINE IV PRN (20:13)
--- NOTE | 2016-08-01 20:44 | Progress Note ---
Assessment and Plan Assessment and plan: 1. Sepsis with septic shock due to right upper extremity cellulitis Continue antibiotics, ivf, weaning off Levophed 2. A. fib RVR New onset Was on Diltiazem and converted back to sinus rhythm Already anticoagulated with Pradaxa 3. Acute renal failure Likely secondary to vasomotor nephropathy/rhabdomyolysis Resolved with IV fluids 4. Hypokalemia Still hypokalemic today; continue IV replacement; recheck in a.m. 5. Rhabdomyolysis CPK trending down with IV fluids; continue to monitor 6. Acute metabolic encephalopathy Treating underlying conditions 7. Left upper extremity edema/warmth Status post PICC placement 07/31 Obtain Doppler 8. CAD Status post CABG Beta yary and LASHONDA inhibitor on hold due to hypotension On statin and anticoagulated with Pradaxa 9. Hyperlipidemia Continue statin 10. Psychiatric disorder/dementia On Zyprexa 11. DVT prophylaxis Anticoagulated with Pradaxa The high probability of a clinically significant, sudden or life threatening deterioration of the [] system(s) required my full and direct attention, intervention and personal management. The aggregate critical care time was [35] minutes. This time is in addition to time spent performing reported procedures but includes the following: [x] Data Review and interpretation [x] Patient assessment and monitoring of vital signs [x] Documentation [x] Medication orders and management History Interval history: Somnolent, but easily arousable; answering simple questions appropriately otherwise confused; with no specific complaints Still on Levophed Hospitalist Physical - Constitutional Vitals: Temp Pulse Resp BP Pulse Ox 99.6 F 139 H 28 H 128/75 93 08/01/16 16:00 08/01/16 20:01 08/01/16 20:01 08/01/16 20:01 08/01/16 20:01 General appearance: Present: no acute distress - EENT Eyes: Present: PERRL, EOM intact. Absent: scleral icterus, conjunctival injection - Neck Neck: Present: supple, normal ROM. Absent: masses or JVD - Respiratory Respiratory effort: normal Respiratory: bilateral: CTA, negative: rales, rhonchi, wheezing - Cardiovascular Rhythm: other (tachycardia) Heart Sounds: Present: S1 & S2. Absent: systolic murmur - Extremities Extremities: no ischemia, abnormal (right upper extremity with edema/erythema/ warmth; PICC left upper extremity (which became swollen and warm to touch) ) - Abdominal General gastrointestinal: soft, non-tender, non-distended, normal bowel sounds - Integumentary Integumentary: Present: warm, dry. Absent: jaundice, rash - Neurologic Neurologic: moves all extremities Results - Labs CBC & Chem 7: 08/02/16 05:00 08/02/16 05:00 Labs: Laboratory Last Values WBC 20.5 K/mm3 (4.5-11.0) H 08/01/16 05:19 RBC 4.04 M/mm3 (3.65-5.03) 08/01/16 05:19 Hgb 12.0 gm/dl (11.8-15.2) 08/01/16 05:19 Hct 36.6 % (35.5-45.6) 08/01/16 05:19 MCV 91 fl (84-94) 08/01/16 05:19 MCH 30 pg (28-32) 08/01/16 05:19 MCHC 33 % (32-34) 08/01/16 05:19 RDW 14.7 % (13.2-15.2) 08/01/16 05:19 Plt Count 206 K/mm3 (140-440) 08/01/16 05:19 Lymph % (Auto) 5.4 % (13.4-35.0) L 07/29/16 22:15 [place] % (Auto) 4.6 % (0.0-7.3) 07/29/16 22:15 Eos % (Auto) 0.0 % (0.0-4.3) 07/29/16 22:15 Baso % (Auto) 0.1 % (0.0-1.8) 07/29/16 22:15 Lymph # 1.0 K/mm3 (1.2-5.4) L 07/29/16 22:15 [place]eller # 0.9 K/mm3 (0.0-0.8) H 07/29/16 22:15 Eos # 0.0 K/mm3 (0.0-0.4) 07/29/16 22:15 Baso # 0.0 K/mm3 (0.0-0.1) 07/29/16 22:15 Add Manual Diff Complete 08/01/16 05:19 Total Counted 100 08/01/16 05:19 Seg Neutrophils % [employer] 01/07/17 05:19 Seg Neuts % (Manual) 71.0 % (40.0-70.0) H 08/01/16 05:19 Band Neutrophils % 10.0 % 08/01/16 05:19 Lymphocytes % (Manual) 11.0 % (13.4-35.0) L 08/01/16 05:19 Reactive Lymphs % (Man) 0 % 08/01/16 05:19 Monocytes % (Manual) 8.0 % (0.0-7.3) H 08/01/16 05:19 Eosinophils % (Manual) 0 % (0.0-4.3) 08/01/16 05:19 Basophils % (Manual) 0 % (0.0-1.8) 08/01/16 05:19 Metamyelocytes % 0 % 08/01/16 05:19 Myelocytes % 0 % 08/01/16 05:19 Promyelocytes % 0 % 08/01/16 05:19 Blast Cells % 0 % 08/01/16 05:19 Nucleated RBC % Not Reportable 08/01/16 05:19 Seg Neutrophils # 17.5 K/mm3 (1.8-7.7) H 07/29/16 22:15 Seg Neutrophils # Man 14.6 K/mm3 (1.8-7.7) H 08/01/16 05:19 Band Neutrophils # 2.1 K/mm3 08/01/16 05:19 Lymphocytes # (Manual) 2.3 K/mm3 (1.2-5.4) 08/01/16 05:19 Abs React Lymphs (Man) 0.0 K/mm3 08/01/16 05:19 Monocytes # (Manual) 1.6 K/mm3 (0.0-0.8) H 08/01/16 05:19 Eosinophils # (Manual) 0.0 K/mm3 (0.0-0.4) 08/01/16 05:19 Basophils # (Manual) 0.0 K/mm3 (0.0-0.1) 08/01/16 05:19 Metamyelocytes # 0.0 K/mm3 08/01/16 05:19 Myelocytes # 0.0 K/mm3 08/01/16 05:19 Promyelocytes # 0.0 K/mm3 08/01/16 05:19 Blast Cells # 0.0 K/mm3 08/01/16 05:19 WBC Morphology Not Reportable 08/01/16 05:19 Hypersegmented Neuts Not Reportable 08/01/16 05:19 Hyposegmented Neuts Not Reportable 08/01/16 05:19 Hypogranular Neuts Not Reportable 08/01/16 05:19 Smudge Cells Not Reportable 08/01/16 05:19 Toxic Granulation Not Reportable 08/01/16 05:19 Toxic Vacuolation Not Reportable 08/01/16 05:19 Dohle Bodies Not Reportable 08/01/16 05:19 Pelger-Huet Anomaly Not Reportable 08/01/16 05:19 Arlene Rods Not Reportable 08/01/16 05:19 Platelet Estimate Appears normal 08/01/16 05:19 Clumped Platelets Not Reportable 08/01/16 05:19 Plt Clumps, EDTA Not Reportable 08/01/16 05:19 Large Platelets Not Reportable 08/01/16 05:19 Giant Platelets Not Reportable 08/01/16 05:19 Platelet Satelliting Not Reportable 08/01/16 05:19 Plt Morphology Comment Not Reportable 08/01/16 05:19 RBC Morphology Not Reportable 08/01/16 05:19 Dimorphic RBCs Not Reportable 08/01/16 05:19 Polychromasia Not Reportable 08/01/16 05:19 Hypochromasia Not Reportable 08/01/16 05:19 Poikilocytosis Not Reportable 08/01/16 05:19 Anisocytosis Few 08/01/16 05:19 Microcytosis Not Reportable 08/01/16 05:19 Macrocytosis Not Reportable 08/01/16 05:19 Spherocytes Not Reportable 08/01/16 05:19 Pappenheimer Bodies Not Reportable 08/01/16 05:19 Sickle Cells Not Reportable 08/01/16 05:19 Target Cells Not Reportable 08/01/16 05:19 Tear Drop Cells Not Reportable 08/01/16 05:19 Ovalocytes Not Reportable 08/01/16 05:19 Helmet Cells Not Reportable 08/01/16 05:19 Brown-[place] Bodies Not Reportable 08/01/16 05:19 [place] Rings Not Reportable 08/01/16 05:19 [place] Cells Not Reportable 08/01/16 05:19 Bite Cells Not Reportable 08/01/16 05:19 Crenated Cell Not Reportable 08/01/16 05:19 Elliptocytes Not Reportable 08/01/16 05:19 Acanthocytes (Spur) Not Reportable 08/01/16 05:19 Rouleaux Not Reportable 08/01/16 05:19 Hemoglobin C Crystals Not Reportable 08/01/16 05:19 Schistocytes Not Reportable 08/01/16 05:19 Malaria parasites Not Reportable 08/01/16 05:19 Lorenzo Bodies Not Reportable 08/01/16 05:19 Hem Pathologist Commnt No 08/01/16 05:19 PT 22.5 Sec. (12.2-14.9) H 07/29/16 22:55 INR 1.98 (0.87-1.13) H 07/29/16 22:55 VBG pH 7.405 (7.320-7.420) 07/29/16 22:55 Sodium 139 mmol/L (137-145) 08/01/16 05:19 Potassium 2.8 mmol/L (3.6-5.0) L* 08/01/16 05:19 Chloride 104.8 mmol/L (98-107) 08/01/16 05:19 Carbon Dioxide 20 mmol/L (22-30) L 08/01/16 05:19 Anion Gap 17 mmol/L 08/01/16 05:19 BUN 19 mg/dL (9-20) 08/01/16 05:19 Creatinine 0.7 mg/dL (0.8-1.5) L 08/01/16 05:19 Estimated GFR > 60 ml/min 08/01/16 05:19 BUN/Creatinine Ratio 27.14 % 08/01/16 05:19 Glucose 82 mg/dL (75-100) 08/01/16 05:19 Lactic Acid 3.0 mmol/L (0.7-2.0) H* 07/30/16 01:18 Calcium 7.1 mg/dL (8.4-10.2) L 08/01/16 05:19 Magnesium 2.0 mg/dL (1.7-2.3) 08/01/16 05:19 Total Bilirubin 1.2 mg/dL (0.1-1.2) 07/29/16 22:55 AST 55 units/L (5-40) H 07/29/16 22:55 ALT 22 units/L (7-56) 07/29/16 22:55 Alkaline Phosphatase 56 units/L (35-129) 07/29/16 22:55 Total Creatine Kinase 313 units/L (55-170) H 08/01/16 05:19 Total Protein 5.8 g/dL (6.3-8.2) L 07/29/16 22:55 Albumin 2.9 g/dL (3.9-5) L 07/29/16 22:55 Albumin/Globulin Ratio 1.0 % 07/29/16 22:55 Urine Color Lizy (Yellow) 07/30/16 03:29 Urine Turbidity Clear (Clear) 07/30/16 03:29 Urine pH 5.0 (5.0-7.0) 07/30/16 03:29 Ur Specific [place] 1.025 (1.003-1.030) 07/30/16 03:29 Urine Protein 30 mg/dl mg/dL (Negative) 07/30/16 03:29 Urine Glucose (UA) Neg mg/dL (Negative) 07/30/16 03:29 Urine Ketones Neg mg/dL (Negative) 07/30/16 03:29 Urine Blood Mod (Negative) 07/30/16 03:29 Urine Nitrite Neg (Negative) 07/30/16 03:29 Urine Bilirubin Neg (Negative) 07/30/16 03:29 Urine Urobilinogen 2.0 mg/dL (<2.0) 07/30/16 03:29 Ur Leukocyte Esterase Neg (Negative) 07/30/16 03:29 Urine WBC (Auto) 1.0 /HPF (0.0-6.0) 07/30/16 03:29 Urine RBC (Auto) 19.0 /HPF (0.0-6.0) 07/30/16 03:29 U Epithel Cells (Auto) < 1.0 /HPF (0-13.0) 07/30/16 03:29 Amorphous Crystals 1+ 07/30/16 03:29 Hyaline Casts 1 /LPF 07/30/16 03:29 Urine Mucus Few /HPF 07/30/16 03:29
[2016-08-01] MEDS: ZOCOR PO SCH (22:07)
[2016-08-02] MEDS: NACL 0.45% 1000 ML 1,000 ML IV SCH ×2 (01:53→14:11)
[2016-08-02 06:11] LABS: Hematocrit 37.5 % (35.5-45.6); Hemoglobin 12.3 gm/dl (11.8-15.2); Mean Corpuscular HGB Conc 33 % (32-34); Mean Corpuscular Hemoglobin 29 pg (28-32); Mean Corpuscular Volume 89 fl (84-94); Platelet Count 178 K/mm3 (140-440); Red Cell Distribution Width 14.7 % (13.2-15.2); White Blood Count 16.1 K/mm3 (4.5-11.0)
[2016-08-02 06:35] LABS: BUN/Creatinine Ratio 24.28; Blood Urea Nitrogen 17 mg/dL (9-20); Calcium 6.9 mg/dL (8.4-10.2); Carbon Dioxide 21 mmol/L (22-30); Chloride 100.9 mmol/L (98-107); Glucose 111 mg/dL (75-100); Sodium 133 mmol/L (137-145)
[2016-08-02 06:38] LABS: Anion Gap 14 mmol/L; Potassium 2.8 mmol/L (3.6-5.0)
[2016-08-02 08:25] LABS: Anisocytosis 1+; Basophils % (Manual) 0 % (0.0-1.8); Blastocytes % (Manual) 0 %; Diff Status Complete; Eosinophils % (Manual) 0 % (0.0-4.3); Large Platelets Rare; Ovalocytes 1+; Poikilocytosis 1+; Polychromasia Few
[2016-08-02] MEDS ORDERED: HALDOL IM ONE (08:47)
[2016-08-02] MEDS: ROCEPHIN/NS 1 GM/50 ML 50 ML IV SCH (09:06)
[2016-08-02] MEDS: PRADAXA PO SCH ×2 (09:06→22:55)
[2016-08-02] MEDS: PROTONIX PO SCH (09:06)
--- NOTE | 2016-08-02 09:39 | Progress Note ---
Assessment and Plan 85 y/o male with sepsis and septic shock secondary to upper ext cellulitis. 1. Continue amio drip and consult cards after transition to floor 2. Already on pradaxa for anticoagulation 3. Continue IV abx therapy, await susceptibilities 4. Aggressive replacement of K with IV K and repeat Magnesium levels 5. Given resolution of shock and better rate control, feel stable for transfer out of ICU. Subjective Date of service: 08/02/16 Interval history: No acute events. RAte is better controlled on amio but still in fib. Beta hemolytic strep growing from multiple area. Off pressors and BP stable. Objective - Constitutional Vitals: Vital Signs - 12hr 08/01/16 08/01/16 08/01/16 21:45 22:00 22:01 Temperature Pulse Rate 146 H 140 H 155 H Respiratory 17 18 Rate Blood Pressure 106/64 106/87 O2 Sat by Pulse 94 95 Oximetry 08/01/16 08/01/16 08/01/16 22:15 22:31 22:45 Temperature Pulse Rate 156 H 131 H 156 H Respiratory 27 H 24 24 Rate Blood Pressure 106/87 109/63 109/63 O2 Sat by Pulse 94 93 94 Oximetry 08/01/16 08/01/16 08/01/16 23:00 23:15 23:30 Temperature Pulse Rate 140 H 155 H 125 H Respiratory 19 19 19 Rate Blood Pressure 93/63 93/63 96/63 O2 Sat by Pulse 94 94 93 Oximetry 08/01/16 08/02/16 08/02/16 23:45 00:00 00:15 Temperature 98.6 F Pulse Rate 132 H 128 H 138 H Respiratory 16 25 H 22 Rate Blood Pressure 96/63 88/62 88/62 O2 Sat by Pulse 93 93 93 Oximetry 08/02/16 08/02/16 08/02/16 00:31 00:45 01:01 Temperature Pulse Rate 130 H 135 H 133 H Respiratory 13 16 25 H Rate Blood Pressure 91/64 91/64 91/64 O2 Sat by Pulse 94 94 94 Oximetry 08/02/16 08/02/16 08/02/16 01:15 01:30 01:45 Temperature Pulse Rate 132 H 139 H 142 H Respiratory 13 23 21 Rate Blood Pressure 91/64 105/72 105/72 O2 Sat by Pulse 94 94 95 Oximetry 08/02/16 08/02/16 08/02/16 02:00 02:15 02:25 Temperature Pulse Rate 144 H 133 H 150 H Respiratory 22 14 22 Rate Blood Pressure 111/69 111/69 111/69 O2 Sat by Pulse 94 93 93 Oximetry 08/02/16 08/02/16 08/02/16 02:30 02:45 03:01 Temperature Pulse Rate 136 H 135 H 131 H Respiratory 23 26 H 25 H Rate Blood Pressure 101/71 101/71 110/64 O2 Sat by Pulse 94 95 93 Oximetry 08/02/16 08/02/16 08/02/16 03:15 03:30 03:45 Temperature Pulse Rate 136 H 133 H 122 H Respiratory 26 H 28 H 19 Rate Blood Pressure 110/64 100/76 100/76 O2 Sat by Pulse 94 94 94 Oximetry 08/02/16 08/02/16 08/02/16 04:00 04:01 04:15 Temperature 98.6 F Pulse Rate 124 H 126 H Respiratory 15 23 Rate Blood Pressure 79/53 79/53 O2 Sat by Pulse 95 94 Oximetry 08/02/16 08/02/16 08/02/16 04:31 04:45 05:00 Temperature Pulse Rate 100 H 98 H 91 H Respiratory 22 23 26 H Rate Blood Pressure 79/53 89/49 95/54 O2 Sat by Pulse 95 95 94 Oximetry 08/02/16 08/02/16 08/02/16 05:15 05:30 05:45 Temperature Pulse Rate 96 H 93 H 91 H Respiratory 20 22 21 Rate Blood Pressure 95/54 90/60 90/60 O2 Sat by Pulse 94 94 93 Oximetry 08/02/16 08/02/16 08/02/16 05:53 06:00 06:03 Temperature Pulse Rate 90 96 H 100 H Respiratory 22 23 17 Rate Blood Pressure 90/60 103/58 103/58 O2 Sat by Pulse 94 94 95 Oximetry 08/02/16 08/02/16 08/02/16 06:15 06:31 06:45 Temperature Pulse Rate 97 H 97 H 102 H Respiratory 19 25 H 19 Rate Blood Pressure 103/58 111/55 111/55 O2 Sat by Pulse 95 95 95 Oximetry 08/02/16 08/02/16 08/02/16 07:00 07:15 07:30 Temperature Pulse Rate 100 H 95 H 88 Respiratory 20 19 19 Rate Blood Pressure 105/55 105/55 89/58 O2 Sat by Pulse 95 95 94 Oximetry 08/02/16 08/02/16 08/02/16 07:45 08:00 08:01 Temperature 98.6 F Pulse Rate 81 99 H Respiratory 18 30 H Rate Blood Pressure 105/55 112/84 O2 Sat by Pulse 95 95 Oximetry General appearance: Present: no acute distress, other (screams out but is not combative) - Neck Neck: supple - Respiratory Respiratory effort: normal Respiratory: bilateral: CTA - Breasts Breasts: deferred - Cardiovascular Rhythm: irregularly irregular (tachycardic) Extremity abnormal: edema, erythema (upper ext bilateral) - Gastrointestinal General gastrointestinal: Present: soft, normal bowel sounds Rectal Exam: deferred - Genitourinary Male genitourinary: deferred - Labs CBC & Chem 7: 08/02/16 05:00 08/02/16 05:00 Labs: Abnormal lab results 08/02/16 08/02/16 Range/Units 05:00 05:00 WBC 16.1 H (4.5-11.0) K/mm3 Seg Neuts % (Manual) 96.0 H (40.0-70.0) % Lymphocytes % (Manual) 1.0 L (13.4-35.0) % Seg Neutrophils # Man 15.5 H (1.8-7.7) K/mm3 Lymphocytes # (Manual) 0.2 L (1.2-5.4) K/mm3 Sodium 133 L (137-145) mmol/L Potassium 2.8 L* (3.6-5.0) mmol/L Carbon Dioxide 21 L (22-30) mmol/L Creatinine 0.7 L (0.8-1.5) mg/dL Glucose 111 H (75-100) mg/dL Calcium 6.9 L (8.4-10.2) mg/dL
[2016-08-02] MEDS: KCL 10MEQ/100ML 100 ML IV SCH ×7 (10:00→17:17)
[2016-08-02] MEDS ORDERED: KCL 10MEQ/100ML 100 ML IV SCH (10:00)
--- NOTE | 2016-08-02 11:12 | Progress Note ---
Assessment and Plan Assessment and plan: 1. Sepsis with septic shock due to right upper extremity cellulitis Continue antibiotics and ivf; Levophed weaned off 2. A. fib RVR New onset Was on Diltiazem on admission and converted back to sinus rhythm Now back on A. fib, so started on amiodarone drip Already anticoagulated with Pradaxa Consult cardiology 3. Acute renal failure Likely secondary to vasomotor nephropathy/rhabdomyolysis Resolved with IV fluids 4. Hypokalemia Still hypokalemic today despite IV replacement Continue aggressive replacement Check magnesium Monitor closely 5. Rhabdomyolysis CPK trended down with IV fluids 6. Acute metabolic encephalopathy Treating underlying conditions 7. Left upper extremity edema/warmth Status post PICC placement 07/31 Doppler obtained, result pending 8. CAD Status post CABG Beta yary and LASHONDA inhibitor on hold due to hypotension On statin and anticoagulated with Pradaxa 9. Hyperlipidemia Continue statin 10. Psychiatric disorder/dementia On Zyprexa 11. DVT prophylaxis Anticoagulated with Pradaxa The high probability of a clinically significant, sudden or life threatening deterioration of the [] system(s) required my full and direct attention, intervention and personal management. The aggregate critical care time was [35] minutes. This time is in addition to time spent performing reported procedures but includes the following: [x] Data Review and interpretation [x] Patient assessment and monitoring of vital signs [x] Documentation [x] Medication orders and management History Interval history: Levophed weaned off, but back in A. fib with RVR; started on amiodarone drip Mental status the same - arousable to voice, confused Edema/warmth LUE decreased Hospitalist Physical - Constitutional Vitals: Temp Pulse Resp BP Pulse Ox 98.6 F 109 H 23 115/92 94 08/02/16 08:00 08/02/16 10:15 08/02/16 10:15 08/02/16 10:15 08/02/16 10:15 General appearance: Present: no acute distress - EENT Eyes: Present: PERRL, EOM intact. Absent: scleral icterus, conjunctival injection - Neck Neck: Present: supple, normal ROM. Absent: masses or JVD - Respiratory Respiratory effort: normal Respiratory: bilateral: CTA, negative: rales, rhonchi, wheezing - Cardiovascular Rhythm: irregularly irregular Heart Sounds: Present: S1 & S2. Absent: systolic murmur - Extremities Extremities: no ischemia, abnormal (right upper extremity edema, erythema; left upper extremity PICC) - Abdominal General gastrointestinal: soft, non-tender, non-distended, normal bowel sounds - Psychiatric Psychiatric: other (confused) - Neurologic Neurologic: moves all extremities Results - Labs CBC & Chem 7: 08/02/16 05:00 08/02/16 05:00 Labs: Laboratory Last Values WBC 16.1 K/mm3 (4.5-11.0) H 08/02/16 05:00 RBC 4.20 M/mm3 (3.65-5.03) 08/02/16 05:00 Hgb 12.3 gm/dl (11.8-15.2) 08/02/16 05:00 Hct 37.5 % (35.5-45.6) 08/02/16 05:00 MCV 89 fl (84-94) 08/02/16 05:00 MCH 29 pg (28-32) 08/02/16 05:00 MCHC 33 % (32-34) 08/02/16 05:00 RDW 14.7 % (13.2-15.2) 08/02/16 05:00 Plt Count 178 K/mm3 (140-440) 08/02/16 05:00 Lymph % (Auto) 5.4 % (13.4-35.0) L 07/29/16 22:15 [place] % (Auto) 4.6 % (0.0-7.3) 07/29/16 22:15 Eos % (Auto) 0.0 % (0.0-4.3) 07/29/16 22:15 Baso % (Auto) 0.1 % (0.0-1.8) 07/29/16 22:15 Lymph # 1.0 K/mm3 (1.2-5.4) L 07/29/16 22:15 [place] # 0.9 K/mm3 (0.0-0.8) H 07/29/16 22:15 Eos # 0.0 K/mm3 (0.0-0.4) 07/29/16 22:15 Baso # 0.0 K/mm3 (0.0-0.1) 07/29/16 22:15 Add Manual Diff Complete 08/02/16 05:00 Total Counted 100 08/02/16 05:00 Seg Neutrophils % [place] 08/02/16 05:00 Seg Neuts % (Manual) 96.0 % (40.0-70.0) H 08/02/16 05:00 Band Neutrophils % 1.0 % 08/02/16 05:00 Lymphocytes % (Manual) 1.0 % (13.4-35.0) L 08/02/16 05:00 Reactive Lymphs % (Man) 0 % 08/02/16 05:00 Monocytes % (Manual) 2.0 % (0.0-7.3) 08/02/16 05:00 Eosinophils % (Manual) 0 % (0.0-4.3) 08/02/16 05:00 Basophils % (Manual) 0 % (0.0-1.8) 08/02/16 05:00 Metamyelocytes % 0 % 08/02/16 05:00 Myelocytes % 0 % 08/02/16 05:00 Promyelocytes % 0 % 08/02/16 05:00 Blast Cells % 0 % 08/02/16 05:00 Nucleated RBC % Not Reportable 08/02/16 05:00 Seg Neutrophils # 17.5 K/mm3 (1.8-7.7) H 07/29/16 22:15 Seg Neutrophils # Man 15.5 K/mm3 (1.8-7.7) H 08/02/16 05:00 Band Neutrophils # 0.2 K/mm3 08/02/16 05:00 Lymphocytes # (Manual) 0.2 K/mm3 (1.2-5.4) L 08/02/16 05:00 Abs React Lymphs (Man) 0.0 K/mm3 08/02/16 05:00 Monocytes # (Manual) 0.3 K/mm3 (0.0-0.8) 08/02/16 05:00 Eosinophils # (Manual) 0.0 K/mm3 (0.0-0.4) 08/02/16 05:00 Basophils # (Manual) 0.0 K/mm3 (0.0-0.1) 08/02/16 05:00 Metamyelocytes # 0.0 K/mm3 08/02/16 05:00 Myelocytes # 0.0 K/mm3 08/02/16 05:00 Promyelocytes # 0.0 K/mm3 08/02/16 05:00 Blast Cells # 0.0 K/mm3 08/02/16 05:00 WBC Morphology Not Reportable 08/02/16 05:00 Hypersegmented Neuts Not Reportable 08/02/16 05:00 Hyposegmented Neuts Not Reportable 08/02/16 05:00 Hypogranular Neuts Not Reportable 08/02/16 05:00 Smudge Cells Not Reportable 08/02/16 05:00 Toxic Granulation Not Reportable 08/02/16 05:00 Toxic Vacuolation Not Reportable 08/02/16 05:00 Dohle Bodies Not Reportable 08/02/16 05:00 Pelger-Huet Anomaly Not Reportable 08/02/16 05:00 Arlene Rods Not Reportable 08/02/16 05:00 Platelet Estimate Appears normal 08/02/16 05:00 Clumped Platelets Not Reportable 08/02/16 05:00 Plt Clumps, EDTA Not Reportable 08/02/16 05:00 Large Platelets Rare 08/02/16 05:00 Giant Platelets Not Reportable 08/02/16 05:00 Platelet Satelliting Not Reportable 08/02/16 05:00 Plt Morphology Comment Not Reportable 08/02/16 05:00 RBC Morphology Not Reportable 08/02/16 05:00 Dimorphic RBCs Not Reportable 08/02/16 05:00 Polychromasia Few 08/02/16 05:00 Hypochromasia Not Reportable 08/02/16 05:00 Poikilocytosis 1+ 08/02/16 05:00 Anisocytosis 1+ 08/02/16 05:00 Microcytosis Not Reportable 08/02/16 05:00 Macrocytosis Not Reportable 08/02/16 05:00 Spherocytes Not Reportable 08/02/16 05:00 Pappenheimer Bodies Not Reportable 08/02/16 05:00 Sickle Cells Not Reportable 08/02/16 05:00 Target Cells Not Reportable 08/02/16 05:00 Tear Drop Cells Not Reportable 08/02/16 05:00 Ovalocytes 1+ 08/02/16 05:00 Helmet Cells Not Reportable 08/02/16 05:00 [place] Bodies Not Reportable 08/02/16 05:00 [place] Rings Not Reportable 08/02/16 05:00 [place] Cells Not Reportable 08/02/16 05:00 Bite Cells Not Reportable 08/02/16 05:00 Crenated Cell Not Reportable 08/02/16 05:00 Elliptocytes Not Reportable 08/02/16 05:00 Acanthocytes (Spur) Not Reportable 08/02/16 05:00 Rouleaux Not Reportable 08/02/16 05:00 Hemoglobin C Crystals Not Reportable 08/02/16 05:00 Schistocytes Not Reportable 08/02/16 05:00 Malaria parasites Not Reportable 08/02/16 05:00 Lorenzo Bodies Not Reportable 08/02/16 05:00 Hem Pathologist Commnt No 08/02/16 05:00 PT 22.5 Sec. (12.2-14.9) H 07/29/16 22:55 INR 1.98 (0.87-1.13) H 07/29/16 22:55 VBG pH 7.405 (7.320-7.420) 07/29/16 22:55 Sodium 133 mmol/L (137-145) L 08/02/16 05:00 Potassium 2.8 mmol/L (3.6-5.0) L* 08/02/16 05:00 Chloride 100.9 mmol/L (98-107) 08/02/16 05:00 Carbon Dioxide 21 mmol/L (22-30) L 08/02/16 05:00 Anion Gap 14 mmol/L 08/02/16 05:00 BUN 17 mg/dL (9-20) 08/02/16 05:00 Creatinine 0.7 mg/dL (0.8-1.5) L 08/02/16 05:00 Estimated GFR > 60 ml/min 08/02/16 05:00 BUN/Creatinine Ratio 24.28 % 08/02/16 05:00 Glucose 111 mg/dL (75-100) H 08/02/16 05:00 Lactic Acid 3.0 mmol/L (0.7-2.0) H* 07/30/16 01:18 Calcium 6.9 mg/dL (8.4-10.2) L 08/02/16 05:00 Magnesium 2.0 mg/dL (1.7-2.3) 08/01/16 05:19 Total Bilirubin 1.2 mg/dL (0.1-1.2) 07/29/16 22:55 AST 55 units/L (5-40) H 07/29/16 22:55 ALT 22 units/L (7-56) 07/29/16 22:55 Alkaline Phosphatase 56 units/L (35-129) 07/29/16 22:55 Total Creatine Kinase 313 units/L (55-170) H 08/01/16 05:19 Total Protein 5.8 g/dL (6.3-8.2) L 07/29/16 22:55 Albumin 2.9 g/dL (3.9-5) L 07/29/16 22:55 Albumin/Globulin Ratio 1.0 % 07/29/16 22:55 Urine Color Lizy (Yellow) 07/30/16 03:29 Urine Turbidity Clear (Clear) 07/30/16 03:29 Urine pH 5.0 (5.0-7.0) 07/30/16 03:29 Ur Specific [place] 1.025 (1.003-1.030) 07/30/16 03:29 Urine Protein 30 mg/dl mg/dL (Negative) 07/30/16 03:29 Urine Glucose (UA) Neg mg/dL (Negative) 07/30/16 03:29 Urine Ketones Neg mg/dL (Negative) 07/30/16 03:29 Urine Blood Mod (Negative) 07/30/16 03:29 Urine Nitrite Neg (Negative) 07/30/16 03:29 Urine Bilirubin Neg (Negative) 07/30/16 03:29 Urine Urobilinogen 2.0 mg/dL (<2.0) 07/30/16 03:29 Ur Leukocyte Esterase Neg (Negative) 07/30/16 03:29 Urine WBC (Auto) 1.0 /HPF (0.0-6.0) 07/30/16 03:29 Urine RBC (Auto) 19.0 /HPF (0.0-6.0) 07/30/16 03:29 U Epithel Cells (Auto) < 1.0 /HPF (0-13.0) 07/30/16 03:29 Amorphous Crystals 1+ 07/30/16 03:29 Hyaline Casts 1 /LPF 07/30/16 03:29 Urine Mucus Few /HPF 07/30/16 03:29 - Imaging and Cardiology Imaging and Cardiology: Doppler left upper extremity pending
[2016-08-02] MEDS: CORDARONE 900 MG in D5W 482 ML IV SCH (14:06)
--- NOTE | 2016-08-02 15:30 | Consultation ---
History of Present Illness Consult date: 08/02/16 Consult reason: atrial fibrillation History of present illness: Cardiology consult for the management of atrial fibrillation Patient is incoherent and therefore not able to provide history Past History Past Medical History: CAD, hyperlipidemia Past Surgical History: CABG Social history: Family history: hypertension Medications and Allergies Allergies Allergy/AdvReac Type Severity Reaction Status Date / Time No Known Allergies Allergy Verified 07/29/16 22:15 Home Medications Medication Instructions Recorded Confirmed Last Taken Type Acetaminophen 2 tab PO Q4H PRN 07/30/16 07/30/16 Unknown History Albuterol Sulfate [Ventolin HFA] 2 puff IH Q6H PRN 07/30/16 07/30/16 Unknown History Dabigatran [Pradaxa] 150 mg PO BID 07/30/16 07/30/16 Unknown History Furosemide [Lasix] 20 mg PO QDAY 07/30/16 07/30/16 Unknown History Lisinopril [Zestril] 5 mg PO QDAY 07/30/16 07/30/16 Unknown History Mag Hydrox/Al Hydrox/Simeth 30 ml PO Q2H PRN 07/30/16 07/30/16 Unknown History [Maalox Advanced Suspension] Magnesium Hydroxide [Milk of 30 ml PO Q12H PRN 07/30/16 07/30/16 Unknown History Magnesia] Metoprolol Xl [Metoprolol 25 mg PO QDAY 07/30/16 07/30/16 Unknown History SUCCINATE ER TAB] OLANzapine [ZyPREXA] 5 mg PO BID 07/30/16 07/30/16 Unknown History Pantoprazole [Protonix] 40 mg PO QDAY 07/30/16 07/30/16 Unknown History Simvastatin [Zocor TAB] 20 mg PO QHS 07/30/16 07/30/16 Unknown History chlorproMAZINE [Thorazine INJ] 25 mg IM Q4H PRN 07/30/16 07/30/16 Unknown History Active Meds: Active Medications Acetaminophen (Tylenol) 650 mg PO Q4H PRN PRN Reason: Headache Last Admin: 07/31/16 21:03 Dose: 650 mg Al Hydrox/Mg Hydrox/Simethicone (Alum-Mag Hydrox-Simeth 629-996-31fa/5ml) 30 ml PO Q2H PRN PRN Reason: Indigestion Albuterol (Proventil) 2.5 mg IH Q6HRT PRN PRN Reason: Shortness Of Breath Chlorpromazine HCl (Thorazine) 25 mg IM Q4H PRN PRN Reason: Agitation Dabigatran (Pradaxa) 150 mg PO BID [facility] Last Admin: 08/02/16 09:06 Dose: 150 mg Sodium Chloride (Nacl 0.45% 1000 Ml) 1,000 mls @ 100 mls/hr IV DIRECT [facility]LIN Last Admin: 08/02/16 14:11 Dose: 100 mls/hr Norepinephrine (Levophed Drip 4 Mg/Ns 250 Ml) 250 mls @ 7.5 mls/hr IV TITR [facility] ; 2 MCG/MIN PRN Reason: Protocol Last Titration: 08/01/16 17:40 Dose: 0 mcg/min Ceftriaxone Sodium (Rocephin/Ns 1 Gm/50 Ml) 50 mls @ 100 mls/hr IV Q24HR [facility] Last Admin: 08/02/16 09:06 Dose: 100 mls/hr Amiodarone HCl 900 mg/ (Dextrose) 500 mls @ 33.33 mls/hr IV DIRECT ORLIN; 1 MG /MIN PRN Reason: Protocol Last Admin: 08/02/16 14:06 Dose: 16.7 mls/hr Potassium Chloride (Kcl 10meq/100ml) 100 mls @ 100 mls/hr IV Q1H [facility] Stop: 08/02/16 17:59 Last Admin: 08/02/16 15:15 Dose: 100 mls/hr Magnesium Hydroxide (Milk Of Magnesia) 30 ml PO Q12H PRN PRN Reason: Constipation Morphine Sulfate (Morphine) 2 mg IV Q4H PRN PRN Reason: Pain , Severe (7-10) Last Admin: 08/01/16 20:13 Dose: 2 mg Olanzapine (Zyprexa) 5 mg PO BID [facility] Last Admin: 08/02/16 09:06 Dose: 5 mg Pantoprazole Sodium (Protonix) 40 mg PO QDAY [facility] Last Admin: 08/02/16 09:06 Dose: 40 mg Simvastatin (Zocor) 20 mg PO QHS [facility] Last Admin: 08/01/16 22:07 Dose: 20 mg Review of Systems ROS unobtainable: due to mental status Physical Examination Vital Signs Temp Pulse Resp BP Pulse Ox 103.9 F H 91 H 22 124/107 97 07/29/16 21:59 07/29/16 21:59 07/29/16 21:59 07/29/16 21:59 07/29/16 21:59 General appearance: no acute distress HEENT: Positive: Pallor Neck: Negative: JVD/HJR Cardiac: Positive: irregularly irregular Lungs: Positive: Decreased Breath Sounds Abdomen: Positive: Soft Results 08/02/16 05:00 08/02/16 05:00 CBC 08/02/16 Range/Units 05:00 WBC 16.1 H (4.5-11.0) K/mm3 RBC 4.20 (3.65-5.03) M/mm3 Hgb 12.3 (11.8-15.2) gm/dl Hct 37.5 (35.5-45.6) % Plt Count 178 (140-440) K/mm3 Comprehensive Metabolic Panel 08/02/16 Range/Units 05:00 Sodium 133 L (137-145) mmol/L Potassium 2.8 L* (3.6-5.0) mmol/L Chloride 100.9 (98-107) mmol/L Carbon Dioxide 21 L (22-30) mmol/L BUN 17 (9-20) mg/dL Creatinine 0.7 L (0.8-1.5) mg/dL Glucose 111 H (75-100) mg/dL Calcium 6.9 L (8.4-10.2) mg/dL Assessment and Plan 1. Sepsis with septic shock due to right upper extremity cellulitis 2. A. fib RVR, paroxysmal on amiodarone and pradaxa 3. Acute renal failure - resolved 4. Hypokalemia 5. Rhabdomyolysis 6. Acute metabolic encephalopathy 7. Left upper extremity edema/warmth Status post PICC placement 07/31 Doppler obtained, result pending 8. CAD status post CABG Beta yary and LASHONDA inhibitor on hold due to hypotension On statin 9. Hyperlipidemia 10. Psychiatric disorder/dementia Recommendations: Continue current management Change simvastatin to atorvastatin (due to new data suggesting interaction between pradaxa and simvastatin) Patient is not a candidate for cardioversion; therefore, will continue rate control strategy Beta yary and non-dihydropyridine CCB on hold due to borderline blood pressure
[2016-08-03] MEDS: MORPHINE IV PRN (05:18)
[2016-08-03] MEDS: NACL 0.45% 1000 ML 1,000 ML IV SCH (05:18)
[2016-08-03 05:42] LABS: Hematocrit 38.6 % (35.5-45.6); Hemoglobin 12.6 gm/dl (11.8-15.2); Mean Corpuscular HGB Conc 33 % (32-34); Mean Corpuscular Hemoglobin 30 pg (28-32); Mean Corpuscular Volume 90 fl (84-94); Platelet Count 232 K/mm3 (140-440); Red Blood Count 4.28 M/mm3 (3.65-5.03); Red Cell Distribution Width 15.1 % (13.2-15.2); White Blood Count 18.2 K/mm3 (4.5-11.0)
[2016-08-03 06:10] LABS: BUN/Creatinine Ratio 27.14; Blood Urea Nitrogen 19 mg/dL (9-20); Calcium 7.5 mg/dL (8.4-10.2); Carbon Dioxide 20 mmol/L (22-30); Chloride 102.2 mmol/L (98-107); Glucose 96 mg/dL (75-100); Potassium 3.4 mmol/L (3.6-5.0); Sodium 137 mmol/L (137-145)
[2016-08-03 06:13] LABS: Anion Gap 18 mmol/L
[2016-08-03 06:43] LABS: Anisocytosis 1+; Basophils % (Manual) 0 % (0.0-1.8); Blastocytes % (Manual) 0 %; Diff Status Complete; Platelet Estimate Consistent w Auto; Poikilocytosis 1+; Polychromasia Rare
--- NOTE | 2016-08-03 08:13 | Vascular Lab Report ---
LEFT UPPER EXTREMITY VENOUS DUPLEX: REASON FOR EXAM: Left arm swelling COMMENTS ON THE LEFT: All arm veins visualized are freely compressible without evidence of internal echogenicity. The subclavian and internal jugular veins are free of thrombus. Flow is spontaneous and phasic throughout. COMMENTS ON THE RIGHT: The subclavian and internal jugular veins are free of thrombus. IMPRESSION: No evidence of acute or chronic deep venous thrombosis in the left upper extremity.
--- NOTE | 2016-08-03 10:59 | Progress Note ---
Addendum entered and electronically signed by STACY BULLOCK MD 08/03/16 19:15 : Atrial fibrillation has reverted to sinus rhythm. Continue amiodarone and beta yary therapy. Get echocardiogram for left ventricular function assessment. Original Note: Assessment and Plan Sepsis with septic shock due to right upper extremity cellulitis Paroxysmal A fib -patient reverted to a sinus rhythm on IV amiodarone and pradaxa Acute renal failure - resolved Hypokalemia Rhabdomyolysis Acute metabolic encephalopathy Left upper extremity edema/warmth status post PICC placement 07/31 no evidence of acute DVT -venous duplex Hx of CAD status post CABG Beta yary and LASHONDA inhibitor on hold due to hypotension Psychiatric disorder/dementia Recommendation: Transition from IV to oral amiodarone for suppression of afib. Will add a low dose beta yary for rate control. Continue pradaxa for anticoagulation. Maintain normal electrolytes. Subjective Date of service: 08/03/16 Interval history: Patient alert with confusion. Objective Vital Signs Temp Pulse Pulse Pulse Pulse Resp BP 08/03/16 09:28 08/03/16 07:42 99.0 F 90 20 08/03/16 06:04 99.5 F 136 H 18 08/03/16 00:24 99.0 F 110 H 18 08/02/16 22:00 67 08/02/16 20:00 99.3 F 70 18 08/02/16 18:26 99.8 F H 113 H 20 08/02/16 17:15 105 H 20 105/57 08/02/16 17:00 108 H 13 105/57 08/02/16 16:45 105 H 29 H 113/50 08/02/16 16:30 110 H 21 113/50 08/02/16 16:15 106 H 20 101/47 08/02/16 16:01 106 H 22 85/45 08/02/16 16:00 98.0 F 08/02/16 15:45 106 H 22 98/50 08/02/16 15:39 104 H 20 98/50 08/02/16 15:30 102 H 28 H 98/50 08/02/16 15:15 105 H 25 H 98/55 08/02/16 15:00 102 H 27 H 87/57 08/02/16 14:45 106 H 17 91/63 08/02/16 14:30 109 H 24 91/63 08/02/16 14:15 108 H 15 106/58 08/02/16 14:00 111 H 24 106/58 08/02/16 13:51 106 H 30 H 96/54 08/02/16 13:45 109 H 22 96/54 08/02/16 13:34 113 H 25 H 96/54 08/02/16 13:31 106 H 26 H 96/54 08/02/16 13:27 105 H 27 H 87/60 08/02/16 13:15 102 H 24 87/60 08/02/16 13:01 110 H 20 87/60 08/02/16 12:45 110 H 21 108/60 08/02/16 12:30 102 H 25 H 108/60 08/02/16 12:15 106 H 23 106/56 08/02/16 12:00 98.8 F 104 H 20 106/56 08/02/16 11:45 97 H 22 95/56 08/02/16 11:30 100 H 18 95/56 08/02/16 11:17 94 H 20 120/103 08/02/16 11:01 102 H 19 88/58 BP Pulse Ox 08/03/16 09:28 94 08/03/16 07:42 118/73 96 08/03/16 06:04 164/80 96 08/03/16 00:24 192/84 98 08/02/16 22:00 94 08/02/16 20:00 155/126 96 08/02/16 18:26 115/76 08/02/16 17:15 94 08/02/16 17:00 95 08/02/16 16:45 94 08/02/16 16:30 94 08/02/16 16:15 95 08/02/16 16:01 95 08/02/16 16:00 08/02/16 15:45 95 08/02/16 15:39 96 08/02/16 15:30 96 08/02/16 15:15 94 08/02/16 15:00 95 08/02/16 14:45 96 08/02/16 14:30 95 08/02/16 14:15 95 08/02/16 14:00 92 08/02/16 13:51 95 08/02/16 13:45 95 08/02/16 13:34 93 08/02/16 13:31 94 08/02/16 13:27 94 08/02/16 13:15 94 08/02/16 13:01 08/02/16 12:45 08/02/16 12:30 08/02/16 12:15 08/02/16 12:00 08/02/16 11:45 08/02/16 11:30 08/02/16 11:17 08/02/16 11:01 95 - Physical Examination General: No Apparent Distress HEENT: Positive: Pallor Cardiac: Positive: Reg Rate and Rhythm Abdomen: Positive: Soft - Labs and Meds CBC 08/03/16 Range/Units 05:30 WBC 18.2 H (4.5-11.0) K/mm3 RBC 4.28 (3.65-5.03) M/mm3 Hgb 12.6 (11.8-15.2) gm/dl Hct 38.6 (35.5-45.6) % Plt Count 232 (140-440) K/mm3 Comprehensive Metabolic Panel 08/03/16 Range/Units 05:30 Sodium 137 (137-145) mmol/L Potassium 3.4 L D (3.6-5.0) mmol/L Chloride 102.2 (98-107) mmol/L Carbon Dioxide 20 L (22-30) mmol/L BUN 19 (9-20) mg/dL Creatinine 0.7 L (0.8-1.5) mg/dL Glucose 96 (75-100) mg/dL Calcium 7.5 L (8.4-10.2) mg/dL - Imaging and Cardiology EKG: image reviewed
[2016-08-03] MEDS: PRADAXA PO SCH ×2 (11:12→22:24)
[2016-08-03] MEDS: PROTONIX PO SCH (11:12)
[2016-08-03] MEDS: ROCEPHIN/NS 1 GM/50 ML 50 ML IV SCH (11:12)
--- NOTE | 2016-08-03 13:24 | Progress Note ---
Assessment and Plan Imp: 1. Cellulitis/Bacteremia/Sepsis 2/2 Group A strep 2. Toxic encephalopathy 2/2 above 3. MAGUI, resolved 4. Poor airway clearance 2/2 #2 Rec: 1. Cont. ABX versus Group A strep 2. Would send surveillance cultures 3. Consider ST evaluation; seems at risk for aspiration 4. F/u Echo 5. Monitor clinically No family present Subjective Date of service: 08/03/16 Principal diagnosis: Cellulitis, Sepsis Interval history: Awake, alert. Unintelligible/garbled speech so cannot obtain history. On RA. Active Medications Acetaminophen (Tylenol) 650 mg PO Q4H PRN PRN Reason: Headache Last Admin: 07/31/16 21:03 Dose: 650 mg Al Hydrox/Mg Hydrox/Simethicone (Alum-Mag Hydrox-Simeth [phone]/5ml) 30 ml PO Q2H PRN PRN Reason: Indigestion Albuterol (Proventil) 2.5 mg IH Q6HRT PRN PRN Reason: Shortness Of Breath Amiodarone HCl (Cordarone) 200 mg PO QDAY [facility] Atorvastatin Calcium (Lipitor) 20 mg PO QHS [facility] Last Admin: 08/02/16 22:55 Dose: 20 mg Chlorpromazine HCl (Thorazine) 25 mg IM Q4H PRN PRN Reason: Agitation Dabigatran (Pradaxa) 150 mg PO BID [facility] Last Admin: 08/03/16 11:12 Dose: 150 mg Sodium Chloride (Nacl 0.45% 1000 Ml) 1,000 mls @ 100 mls/hr IV DIRECT [facility] Last Admin: 08/03/16 05:18 Dose: 100 mls/hr Ceftriaxone Sodium (Rocephin/Ns 1 Gm/50 Ml) 50 mls @ 100 mls/hr IV Q24HR [facility] Last Admin: 08/03/16 11:12 Dose: 100 mls/hr Magnesium Hydroxide (Milk Of Magnesia) 30 ml PO Q12H PRN PRN Reason: Constipation Metoprolol Tartrate (Lopressor) 50 mg PO BID [facility] Morphine Sulfate (Morphine) 2 mg IV Q4H PRN PRN Reason: Pain , Severe (7-10) Last Admin: 08/03/16 05:18 Dose: 2 mg Olanzapine (Zyprexa) 5 mg PO BID [facility] Last Admin: 08/03/16 14:38 Dose: Not Given Pantoprazole Sodium (Protonix) 40 mg PO QDAY [facility] Last Admin: 08/03/16 11:12 Dose: 40 mg Objective Vital Signs - 12hr 08/03/16 08/03/16 08/03/16 06:04 07:42 09:28 Temperature 99.5 F 99.0 F Pulse Rate [ 90 Apical] Pulse Rate [ 136 H Right] Respiratory 18 20 Rate Blood Pressure 164/80 118/73 [Right Calf] O2 Sat by Pulse 96 96 94 Oximetry 08/03/16 11:25 Temperature 98.9 F Pulse Rate [ 107 H Apical] Pulse Rate [ Right] Respiratory 22 Rate Blood Pressure 146/68 [Right Calf] O2 Sat by Pulse 95 Oximetry Constitutional: no acute distress, alert Eyes: non-icteric Neck: supple Effort: normal Ascultation: Bilateral: rhonchi (upper airway) Cardiovascular: other (tachy, RR; no mrg) Gastrointestinal: normoactive bowel sounds, soft, non-tender, non-distended Integumentary: cellulitis (RUE) Extremities: no cyanosis, pink and warm, edema (RUE) Neurologic: other (awake, nonfocal, confused) Psychiatric: other (unable to assess) CBC and BMP: 08/03/16 05:30 08/03/16 05:30 ABG, PT/INR, D-dimer: PT/INR, D-dimer PT 22.5 Sec. (12.2-14.9) H 07/29/16 22:55 INR 1.98 (0.87-1.13) H 07/29/16 22:55 Abnormal lab findings: Abnormal Labs 07/31/16 07/31/16 08/01/16 14:34 14:34 05:19 WBC 15.9 H 20.5 H Seg Neuts % (Manual) 96.0 H 71.0 H Lymphocytes % (Manual) 3.0 L 11.0 L Monocytes % (Manual) 8.0 H Seg Neutrophils # Man 15.3 H 14.6 H Lymphocytes # (Manual) 0.5 L Monocytes # (Manual) 1.6 H Sodium 135 L Potassium 3.2 L Carbon Dioxide 19 L BUN 24 H Creatinine Glucose 106 H Calcium 7.1 L Total Creatine Kinase 08/01/16 08/02/16 08/02/16 05:19 05:00 05:00 WBC 16.1 H Seg Neuts % (Manual) 96.0 H Lymphocytes % (Manual) 1.0 L Monocytes % (Manual) Seg Neutrophils # Man 15.5 H Lymphocytes # (Manual) 0.2 L Monocytes # (Manual) Sodium 133 L Potassium 2.8 L* 2.8 L* Carbon Dioxide 20 L 21 L BUN Creatinine 0.7 L 0.7 L Glucose 111 H Calcium 7.1 L 6.9 L Total Creatine Kinase 313 H 08/03/16 08/03/16 05:30 05:30 WBC 18.2 H Seg Neuts % (Manual) 86.0 H Lymphocytes % (Manual) 5.0 L Monocytes % (Manual) Seg Neutrophils # Man 15.7 H Lymphocytes # (Manual) 0.9 L Monocytes # (Manual) Sodium Potassium 3.4 L D Carbon Dioxide 20 L BUN Creatinine 0.7 L Glucose Calcium 7.5 L Total Creatine Kinase Chest x-ray: report reviewed, image reviewed
--- NOTE | 2016-08-03 16:20 | Progress Note ---
Assessment and Plan Assessment and plan: 1. Sepsis with septic shock due to right upper extremity cellulitis Levophed weaned off Continue antibiotics 2. A. fib RVR New onset Was on Diltiazem on admission and converted back to sinus rhythm Then back on A. fib, so started on amiodarone drip Today amiodarone switched to by mouth and beta yary added Already anticoagulated with Pradaxa 3. Acute renal failure Likely secondary to vasomotor nephropathy/rhabdomyolysis Resolved with IV fluids 4. Hypokalemia Status post aggressive IV replacement Almost normalized Magnesium within normal limits Continue to monitor 5. Rhabdomyolysis CPK trended down with IV fluids 6. Acute metabolic encephalopathy Treating underlying conditions 7. Left upper extremity edema/warmth Status post PICC placement 07/31 Doppler obtained and negative for DVT/SVT 8. CAD Status post CABG Beta yary and LASHONDA inhibitor were on hold due to hypotension/acute renal failure On statin and anticoagulated with Pradaxa Restart low-dose beta yary today If renal function remains within normal limits, will add LASHONDA inhibitor also 9. Hyperlipidemia Continue statin (simvastatin changed to atorvastatin by continuous process rotary drum tanner due to interaction with Pradaxa) 10. Psychiatric disorder/dementia On Zyprexa Supportive care 11. DVT prophylaxis Anticoagulated with Pradaxa History Interval history: Mental status unchanged; HR in low 100s while on AMio drip Hospitalist Physical - Constitutional Vitals: Temp Pulse Resp BP Pulse Ox 98.2 F 106 H 22 165/75 96 08/03/16 15:07 08/03/16 15:07 08/03/16 15:07 08/03/16 15:07 08/03/16 15:07 General appearance: Present: no acute distress - EENT Eyes: Present: PERRL, EOM intact. Absent: conjunctival injection - Neck Neck: Present: supple, normal ROM. Absent: masses or JVD - Respiratory Respiratory effort: normal Respiratory: bilateral: CTA, negative: rales, rhonchi, wheezing - Cardiovascular Rhythm: irregularly irregular Heart Sounds: Present: S1 & S2. Absent: systolic murmur - Extremities Extremities: no ischemia, abnormal (RUE swelling/redness) - Abdominal General gastrointestinal: soft, non-tender, non-distended, normal bowel sounds - Integumentary Integumentary: Present: warm, dry. Absent: jaundice, rash - Psychiatric Psychiatric: other (confused) - Neurologic Neurologic: moves all extremities Results - Labs CBC & Chem 7: 08/03/16 05:30 08/03/16 05:30 Labs: Laboratory Last Values WBC 18.2 K/mm3 (4.5-11.0) H 08/03/16 05:30 RBC 4.28 M/mm3 (3.65-5.03) 08/03/16 05:30 Hgb 12.6 gm/dl (11.8-15.2) 08/03/16 05:30 Hct 38.6 % (35.5-45.6) 08/03/16 05:30 MCV 90 fl (84-94) 08/03/16 05:30 MCH 30 pg (28-32) 08/03/16 05:30 MCHC 33 % (32-34) 08/03/16 05:30 RDW 15.1 % (13.2-15.2) 08/03/16 05:30 Plt Count 232 K/mm3 (140-440) 08/03/16 05:30 Lymph % (Auto) 5.4 % (13.4-35.0) L 07/29/16 22:15 [place] % (Auto) 4.6 % (0.0-7.3) 07/29/16 22:15 Eos % (Auto) 0.0 % (0.0-4.3) 07/29/16 22:15 Baso % (Auto) 0.1 % (0.0-1.8) 07/29/16 22:15 Lymph # 1.0 K/mm3 (1.2-5.4) L 07/29/16 22:15 [place] # 0.9 K/mm3 (0.0-0.8) H 07/29/16 22:15 Eos # 0.0 K/mm3 (0.0-0.4) 07/29/16 22:15 Baso # 0.0 K/mm3 (0.0-0.1) 07/29/16 22:15 Add Manual Diff Complete 08/03/16 05:30 Total Counted 100 08/03/16 05:30 Seg Neutrophils % Chief Telephone Operator 08/03/16 05:30 Seg Neuts % (Manual) 86.0 % (40.0-70.0) H 08/03/16 05:30 Band Neutrophils % 5.0 % 08/03/16 05:30 Lymphocytes % (Manual) 5.0 % (13.4-35.0) L 08/03/16 05:30 Reactive Lymphs % (Man) 0 % 08/03/16 05:30 Monocytes % (Manual) 3.0 % (0.0-7.3) 08/03/16 05:30 Eosinophils % (Manual) 1.0 % (0.0-4.3) 08/03/16 05:30 Basophils % (Manual) 0 % (0.0-1.8) 08/03/16 05:30 Metamyelocytes % 0 % 08/03/16 05:30 Myelocytes % 0 % 08/03/16 05:30 Promyelocytes % 0 % 08/03/16 05:30 Blast Cells % 0 % 08/03/16 05:30 Nucleated RBC % Not Reportable 08/03/16 05:30 Seg Neutrophils # 17.5 K/mm3 (1.8-7.7) H 07/29/16 22:15 Seg Neutrophils # Man 15.7 K/mm3 (1.8-7.7) H 08/03/16 05:30 Band Neutrophils # 0.9 K/mm3 08/03/16 05:30 Lymphocytes # (Manual) 0.9 K/mm3 (1.2-5.4) L 08/03/16 05:30 Abs React Lymphs (Man) 0.0 K/mm3 08/03/16 05:30 Monocytes # (Manual) 0.5 K/mm3 (0.0-0.8) 08/03/16 05:30 Eosinophils # (Manual) 0.2 K/mm3 (0.0-0.4) 08/03/16 05:30 Basophils # (Manual) 0.0 K/mm3 (0.0-0.1) 08/03/16 05:30 Metamyelocytes # 0.0 K/mm3 08/03/16 05:30 Myelocytes # 0.0 K/mm3 08/03/16 05:30 Promyelocytes # 0.0 K/mm3 08/03/16 05:30 Blast Cells # 0.0 K/mm3 08/03/16 05:30 WBC Morphology Not Reportable 08/03/16 05:30 Hypersegmented Neuts Not Reportable 08/03/16 05:30 Hyposegmented Neuts Not Reportable 08/03/16 05:30 Hypogranular Neuts Not Reportable 08/03/16 05:30 Smudge Cells Not Reportable 08/03/16 05:30 Toxic Granulation Not Reportable 08/03/16 05:30 Toxic Vacuolation Not Reportable 08/03/16 05:30 Dohle Bodies Not Reportable 08/03/16 05:30 Pelger-Huet Anomaly Not Reportable 08/03/16 05:30 Arlene Rods Not Reportable 08/03/16 05:30 Platelet Estimate Consistent w auto 08/03/16 05:30 Clumped Platelets Not Reportable 08/03/16 05:30 Plt Clumps, EDTA Not Reportable 08/03/16 05:30 Large Platelets Not Reportable 08/03/16 05:30 Giant Platelets Not Reportable 08/03/16 05:30 Platelet Satelliting Not Reportable 08/03/16 05:30 Plt Morphology Comment Not Reportable 08/03/16 05:30 RBC Morphology Not Reportable 08/03/16 05:30 Dimorphic RBCs Not Reportable 08/03/16 05:30 Polychromasia Rare 08/03/16 05:30 Hypochromasia Not Reportable 08/03/16 05:30 Poikilocytosis 1+ 08/03/16 05:30 Anisocytosis 1+ 08/03/16 05:30 Microcytosis Not Reportable 08/03/16 05:30 Macrocytosis Not Reportable 08/03/16 05:30 Spherocytes Not Reportable 08/03/16 05:30 Pappenheimer Bodies Not Reportable 08/03/16 05:30 Sickle Cells Not Reportable 08/03/16 05:30 Target Cells Not Reportable 08/03/16 05:30 Tear Drop Cells Not Reportable 08/03/16 05:30 Ovalocytes Not Reportable 08/03/16 05:30 Helmet Cells Not Reportable 08/03/16 05:30 [place] Bodies Not Reportable 08/03/16 05:30 [place] Rings Not Reportable 08/03/16 05:30 [place] Cells Not Reportable 08/03/16 05:30 Bite Cells Not Reportable 08/03/16 05:30 Crenated Cell Not Reportable 08/03/16 05:30 Elliptocytes Not Reportable 08/03/16 05:30 Acanthocytes (Spur) Not Reportable 08/03/16 05:30 Rouleaux Not Reportable 08/03/16 05:30 Hemoglobin C Crystals Not Reportable 08/03/16 05:30 Schistocytes Not Reportable 08/03/16 05:30 Malaria parasites Not Reportable 08/03/16 05:30 Lorenzo Bodies Not Reportable 08/03/16 05:30 Hem Pathologist Commnt No 08/03/16 05:30 PT 22.5 Sec. (12.2-14.9) H 07/29/16 22:55 INR 1.98 (0.87-1.13) H 07/29/16 22:55 VBG pH 7.405 (7.320-7.420) 07/29/16 22:55 Sodium 137 mmol/L (137-145) 08/03/16 05:30 Potassium 3.4 mmol/L (3.6-5.0) L D 08/03/16 05:30 Chloride 102.2 mmol/L (98-107) 08/03/16 05:30 Carbon Dioxide 20 mmol/L (22-30) L 08/03/16 05:30 Anion Gap 18 mmol/L 08/03/16 05:30 BUN 19 mg/dL (9-20) 08/03/16 05:30 Creatinine 0.7 mg/dL (0.8-1.5) L 08/03/16 05:30 Estimated GFR > 60 ml/min 08/03/16 05:30 BUN/Creatinine Ratio 27.14 % 08/03/16 05:30 Glucose 96 mg/dL (75-100) 08/03/16 05:30 Lactic Acid 3.0 mmol/L (0.7-2.0) H* 07/30/16 01:18 Calcium 7.5 mg/dL (8.4-10.2) L 08/03/16 05:30 Magnesium 2.0 mg/dL (1.7-2.3) 08/03/16 05:30 Total Bilirubin 1.2 mg/dL (0.1-1.2) 07/29/16 22:55 AST 55 units/L (5-40) H 07/29/16 22:55 ALT 22 units/L (7-56) 07/29/16 22:55 Alkaline Phosphatase 56 units/L (35-129) 07/29/16 22:55 Total Creatine Kinase 313 units/L (55-170) H 08/01/16 05:19 Total Protein 5.8 g/dL (6.3-8.2) L 07/29/16 22:55 Albumin 2.9 g/dL (3.9-5) L 07/29/16 22:55 Albumin/Globulin Ratio 1.0 % 07/29/16 22:55 Urine Color Lizy (Yellow) 07/30/16 03:29 Urine Turbidity Clear (Clear) 07/30/16 03:29 Urine pH 5.0 (5.0-7.0) 07/30/16 03:29 Ur Specific [place] 1.025 (1.003-1.030) 07/30/16 03:29 Urine Protein 30 mg/dl mg/dL (Negative) 07/30/16 03:29 Urine Glucose (UA) Neg mg/dL (Negative) 07/30/16 03:29 Urine Ketones Neg mg/dL (Negative) 07/30/16 03:29 Urine Blood Mod (Negative) 07/30/16 03:29 Urine Nitrite Neg (Negative) 07/30/16 03:29 Urine Bilirubin Neg (Negative) 07/30/16 03:29 Urine Urobilinogen 2.0 mg/dL (<2.0) 07/30/16 03:29 Ur Leukocyte Esterase Neg (Negative) 07/30/16 03:29 Urine WBC (Auto) 1.0 /HPF (0.0-6.0) 07/30/16 03:29 Urine RBC (Auto) 19.0 /HPF (0.0-6.0) 07/30/16 03:29 U Epithel Cells (Auto) < 1.0 /HPF (0-13.0) 07/30/16 03:29 Amorphous Crystals 1+ 07/30/16 03:29 Hyaline Casts 1 /LPF 07/30/16 03:29 Urine Mucus Few /HPF 07/30/16 03:29
[2016-08-03] MEDS: LOPRESSOR PO SCH (22:26)
[2016-08-04 05:23] LABS: Hematocrit 38.2 % (35.5-45.6); Hemoglobin 12.7 gm/dl (11.8-15.2); Mean Corpuscular HGB Conc 33 % (32-34); Mean Corpuscular Hemoglobin 30 pg (28-32); Mean Corpuscular Volume 90 fl (84-94); Platelet Count 268 K/mm3 (140-440); Red Blood Count 4.25 M/mm3 (3.65-5.03); Red Cell Distribution Width 15.1 % (13.2-15.2)
[2016-08-04 05:32] LABS: White Blood Count 21.3 K/mm3 (4.5-11.0)
[2016-08-04 05:34] LABS: BUN/Creatinine Ratio 28.57; Blood Urea Nitrogen 20 mg/dL (9-20); Calcium 7.5 mg/dL (8.4-10.2); Carbon Dioxide 20 mmol/L (22-30); Chloride 103.9 mmol/L (98-107); Glucose 70 mg/dL (75-100); Potassium 3.4 mmol/L (3.6-5.0); Sodium 141 mmol/L (137-145)
[2016-08-04 05:40] LABS: Anion Gap 21 mmol/L
[2016-08-04 07:04] LABS: Basophils % (Manual) 0 % (0.0-1.8); Blastocytes % (Manual) 0 %; Eosinophils % (Manual) 0 % (0.0-4.3)
[2016-08-04 07:05] LABS: Anisocytosis 1+
[2016-08-04 07:06] LABS: Diff Status Complete
[2016-08-04] MEDS ORDERED: CORDARONE PO SCH (10:00)
[2016-08-04] MEDS: LOPRESSOR PO SCH (11:39)
[2016-08-04] MEDS: PRADAXA PO SCH ×2 (11:46→22:00)
[2016-08-04] MEDS: ROCEPHIN/NS 1 GM/50 ML 50 ML IV SCH (11:46)
[2016-08-04] MEDS: PROTONIX PO SCH (11:46)
--- NOTE | 2016-08-04 12:12 | Progress Note ---
Assessment and Plan Sepsis with septic shock due to right upper extremity cellulitis Paroxysmal A fib on amiodarone, metoprolol and pradaxa Acute renal failure - resolved Hypokalemia Rhabdomyolysis Acute metabolic encephalopathy Left upper extremity edema/warmth status post PICC placement 07/31 no evidence of acute DVT -venous duplex Hx of CAD status post CABG Psychiatric disorder/dementia Plan: Patient is NPO status. Will treat his paroxysmal atrial fibrillation with IV Lopressor and IV digoxin. Subjective Date of service: 08/04/16 Principal diagnosis: Cellulitis, Sepsis Interval history: Patient alert with confusion. Patient has been made NPO status for dysphagia and has not gotten any oral medications as ordered. Atrial fibrillation on telemetry. Objective Vital Signs Temp Pulse Pulse Resp BP BP Pulse Ox 08/04/16 11:39 132/80 08/04/16 11:14 98.4 F 107 H 22 132/80 96 08/04/16 07:51 97.3 F L 76 20 130/74 96 08/04/16 06:25 99.6 F 129 H 22 126/76 95 08/04/16 01:22 99.5 F 107 H 20 127/73 96 08/03/16 22:00 108 H 08/03/16 21:24 98.9 F 112 H 20 187/85 95 08/03/16 15:07 98.2 F 106 H 22 165/75 96 - Physical Examination General: No Apparent Distress HEENT: Positive: Pallor Cardiac: Positive: irregularly irregular - Labs and Meds CBC 08/04/16 Range/Units 04:09 WBC 21.3 H (4.5-11.0) K/mm3 RBC 4.25 (3.65-5.03) M/mm3 Hgb 12.7 (11.8-15.2) gm/dl Hct 38.2 (35.5-45.6) % Plt Count 268 (140-440) K/mm3 Comprehensive Metabolic Panel 08/04/16 Range/Units 04:09 Sodium 141 (137-145) mmol/L Potassium 3.4 L (3.6-5.0) mmol/L Chloride 103.9 (98-107) mmol/L Carbon Dioxide 20 L (22-30) mmol/L BUN 20 (9-20) mg/dL Creatinine 0.7 L (0.8-1.5) mg/dL Glucose 70 L (75-100) mg/dL Calcium 7.5 L (8.4-10.2) mg/dL - Imaging and Cardiology EKG: image reviewed
--- NOTE | 2016-08-04 14:39 | Echocardiography Report ---
Transthoracic Echocardiogram Indication: CAD BP: 97/61 Conclusions *1. Dilated cardiomyopathy, EF 20-25%. *2. Severely calcified aortic valve with at least moderate . Findings Left Ventricle: The left ventricular chamber size is moderately dilated. Mild concentric left ventricular hypertrophy is observed. Severe global hypokinesis of the left ventricle is observed. Global left ventricular systolic function is severely decreased. The estimated ejection fraction is 20-25%. Abnormal left ventricular diastolic function is observed. Left Atrium: The left atrium is mildly dilated. Right Ventricle: The right ventricular cavity size is normal. The right ventricular global systolic function is normal. Right Atrium: The right atrium is mildly dilated. The interatrial septum appears normal. Aortic Valve: The aortic valve leaflets are severely thickened with reduced systolic excursion. Moderate aortic leaflet calcification is visualized. There is mild aortic regurgitation. There is moderate aortic stenosis. The mean gradient of the aortic valve is 17 mmHg. The peak instantaneous gradient of the aortic valve is 27 mmHg. Mitral Valve: There is mitral annular calcification. The mitral valve leaflets are mildly thickened. Mild mitral leaflet calcification is visualized. There is mild to moderate mitral regurgitation. There is no evidence of mitral stenosis. Tricuspid Valve: The tricuspid valve leaflets are normal. There is mild tricuspid regurgitation. The right ventricular systolic pressure is calculated at 46 mmHg. There is evidence of mild pulmonary hypertension. There is no tricuspid stenosis. Pulmonic Valve: The pulmonic valve is not well visualized. Pericardium: There is no pericardial effusion. Aorta: There is no dilatation of the ascending aorta. There is no dilatation of the aortic root. Venous: The inferior vena cava appears normal in size. Measurements Chambers MM Name Value Normal Range Ao root diameter (MM) 3.7 cm (2 - 3.7) LA dimension (AP) MM 2.7 cm (1.9 - 4) LA:Ao ratio (MM) 0.73 ratio - Chambers 2D Name Value Normal Range IVSd (2D) 1.36 cm (0.6 - 1.1) LVPWd (2D) 1.34 cm (0.6 - 1.1) IVS:LVPW ratio (2D) 1.01 ratio - LVIDd (2D) 4.54 cm (3.7 - 5.6) LVIDs (2D) 3.88 cm (2 - 3.8) LV FS (Teichholz) (2D) 14.5 % - LV FS (cube) (2D) 14.5 % - EF Teichholz (2D) 31 % - Ao root diameter (2D) 3.7 cm (2 - 3.7) LA dimension (AP) 2D 3 cm (1.9 - 4) LA:Ao ratio (2D) 0.81 ratio - Volumes/Mass Name Value Normal Range LA ESV SP 4CH (MOD) 25 ml - LA ESV SP 2CH (MOD) 32 ml - LV EDV SP 4CH (MOD) 59 ml - LV ESV SP 4CH (MOD) 38 ml - EF SP 4CH (MOD) 36 % - LV EDV SP 2CH (MOD) 59 ml - LV ESV SP 2CH (MOD) 40 ml - EF SP 2CH (MOD) 32 % - LV EDV BP 61 ml - LV ESV BP 40 ml - BP EF (MOD) 34 % - Diastolic/Systolic Function Name Value Normal Range MV E-wave Vmax 0.97 m/sec - MV deceleration time 120 msec - LV septal e' Vmax 0.1 m/sec - LV lateral e' Vmax 0.12 m/sec - LV E:e' septal ratio 10 ratio - LV E:e' lateral ratio 8.2 ratio - Aortic Valve Name Value Normal Range AV VTI 37 cm - AV peak gradient 27 mmHg - AV mean gradient 17 mmHg - LVOT diameter 2 cm - LVOT VTI 14.8 cm - LVOT mean gradient 2 mmHg - SV LVOT 46 ml - TATIANNA (continuity VTI) 1.26 cm2 - Mitral Valve Name Value Normal Range MV PHT 45 msec - MR Vmax 5.43 m/sec - MVA (PHT) 4.89 cm2 - Tricuspid Valve Name Value Normal Range TR Vmax 3.26 m/sec - TR peak gradient 43 mmHg - RAP 3 mmHg - RVSP 46 mmHg - Pulmonic Valve/Qp:Qs Name Value Normal Range PV Vmax 1.17 m/sec - PV peak gradient 5 mmHg - PV acceleration time 77 msec -
--- NOTE | 2016-08-04 15:25 | Progress Note ---
Assessment and Plan Assessment and plan: 1. Sepsis with septic shock due to right upper extremity cellulitis Levophed weaned off Continue antibiotics 2. A. fib RVR New onset Was on Diltiazem on admission and converted back to sinus rhythm Then back on A. fib, so started on amiodarone drip, later switched to by mouth and beta yary added Already anticoagulated with Pradaxa Made NPO due to difficulty swallowing, ST eval pending Receiving iv labetalol and digoxin for rate control 3. Acute renal failure Likely secondary to vasomotor nephropathy/rhabdomyolysis Resolved with IV fluids 4. Hypokalemia Status post aggressive IV replacement Almost normalized Magnesium within normal limits Continue to monitor 5. Rhabdomyolysis CPK trended down with IV fluids 6. Acute metabolic encephalopathy Treating underlying conditions 7. Left upper extremity edema/warmth Status post PICC placement 07/31 Doppler obtained and negative for DVT/SVT 8. CAD Status post CABG Beta yary and LASHONDA inhibitor were on hold due to hypotension/acute renal failure which are now resolved, so beta yary restarted; plan to restart LASHONDA inhibitor unable to take by mouth On statin and anticoagulated with Pradaxa Low-dose beta yary today 9. Severe dilated cardiomyopathy Echo showing dilated cardiomyopathy with EF 20-25%, abnormal diastolic function On beta yary IV for rate control also Plan to start LASHONDA inhibitor when able to take by mouth Cardiology following 10. Hyperlipidemia Continue statin (simvastatin changed to atorvastatin by clinical psychiatrist due to interaction with Pradaxa) 11. Psychiatric disorder/dementia On Zyprexa Supportive care 12. DVT prophylaxis Anticoagulated with Pradaxa; if he will not pass swallow evaluation, may need to be switch to Lovenox treatment dose History Interval history: remains in afib with HR in low 100s, BP wnl mental status unchanged, swallow eval pending Hospitalist Physical - Constitutional Vitals: Temp Pulse Resp BP Pulse Ox 98.4 F 107 H 22 132/80 96 08/04/16 11:14 08/04/16 11:14 08/04/16 11:14 08/04/16 11:39 08/04/16 11:14 General appearance: Present: no acute distress - EENT Eyes: Present: PERRL, EOM intact. Absent: scleral icterus, conjunctival injection - Neck Neck: Present: supple, normal ROM. Absent: masses or JVD - Respiratory Respiratory effort: normal Respiratory: bilateral: CTA, negative: rales, rhonchi, wheezing - Cardiovascular Rhythm: regular Heart Sounds: Present: S1 & S2. Absent: systolic murmur - Extremities Extremities: no ischemia, abnormal (RUE swelling decreased; PICC LUE) - Abdominal General gastrointestinal: soft, non-tender, non-distended, normal bowel sounds - Integumentary Integumentary: Present: warm, dry. Absent: jaundice, rash - Psychiatric Psychiatric: other (confused) - Neurologic Neurologic: moves all extremities Results - Labs CBC & Chem 7: 08/04/16 04:09 08/04/16 04:09 Labs: Laboratory Last Values WBC 21.3 K/mm3 (4.5-11.0) H 08/04/16 04:09 RBC 4.25 M/mm3 (3.65-5.03) 08/04/16 04:09 Hgb 12.7 gm/dl (11.8-15.2) 08/04/16 04:09 Hct 38.2 % (35.5-45.6) 08/04/16 04:09 MCV 90 fl (84-94) 08/04/16 04:09 MCH 30 pg (28-32) 08/04/16 04:09 MCHC 33 % (32-34) 08/04/16 04:09 RDW 15.1 % (13.2-15.2) 08/04/16 04:09 Plt Count 268 K/mm3 (140-440) 08/04/16 04:09 Lymph % (Auto) 5.4 % (13.4-35.0) L 07/29/16 22:15 [place] % (Auto) 4.6 % (0.0-7.3) 07/29/16 22:15 Eos % (Auto) 0.0 % (0.0-4.3) 07/29/16 22:15 Baso % (Auto) 0.1 % (0.0-1.8) 07/29/16 22:15 Lymph # 1.0 K/mm3 (1.2-5.4) L 07/29/16 22:15 [place] # 0.9 K/mm3 (0.0-0.8) H 07/29/16 22:15 Eos # 0.0 K/mm3 (0.0-0.4) 07/29/16 22:15 Baso # 0.0 K/mm3 (0.0-0.1) 07/29/16 22:15 Add Manual Diff Complete 08/04/16 04:09 Total Counted 100 08/04/16 04:09 Seg Neutrophils % Community Health Nurse 08/03/16 05:30 Seg Neuts % (Manual) 56.0 % (40.0-70.0) 08/04/16 04:09 Band Neutrophils % 24.0 % 08/04/16 04:09 Lymphocytes % (Manual) 11.0 % (13.4-35.0) L 08/04/16 04:09 Reactive Lymphs % (Man) 0 % 08/04/16 04:09 Monocytes % (Manual) 9.0 % (0.0-7.3) H 08/04/16 04:09 Eosinophils % (Manual) 0 % (0.0-4.3) 08/04/16 04:09 Basophils % (Manual) 0 % (0.0-1.8) 08/04/16 04:09 Metamyelocytes % 0 % 08/04/16 04:09 Myelocytes % 0 % 08/04/16 04:09 Promyelocytes % 0 % 08/04/16 04:09 Blast Cells % 0 % 08/04/16 04:09 Nucleated RBC % Not Reportable 08/04/16 04:09 Seg Neutrophils # 17.5 K/mm3 (1.8-7.7) H 07/29/16 22:15 Seg Neutrophils # Man 11.9 K/mm3 (1.8-7.7) H 08/04/16 04:09 Band Neutrophils # 5.1 K/mm3 08/04/16 04:09 Lymphocytes # (Manual) 2.3 K/mm3 (1.2-5.4) 08/04/16 04:09 Abs React Lymphs (Man) 0.0 K/mm3 08/04/16 04:09 Monocytes # (Manual) 1.9 K/mm3 (0.0-0.8) H 08/04/16 04:09 Eosinophils # (Manual) 0.0 K/mm3 (0.0-0.4) 08/04/16 04:09 Basophils # (Manual) 0.0 K/mm3 (0.0-0.1) 08/04/16 04:09 Metamyelocytes # 0.0 K/mm3 08/04/16 04:09 Myelocytes # 0.0 K/mm3 08/04/16 04:09 Promyelocytes # 0.0 K/mm3 08/04/16 04:09 Blast Cells # 0.0 K/mm3 08/04/16 04:09 WBC Morphology Not Reportable 08/04/16 04:09 Hypersegmented Neuts Not Reportable 08/04/16 04:09 Hyposegmented Neuts Not Reportable 08/04/16 04:09 Hypogranular Neuts Not Reportable 08/04/16 04:09 Smudge Cells Not Reportable 08/04/16 04:09 Toxic Granulation Not Reportable 08/04/16 04:09 Toxic Vacuolation Not Reportable 08/04/16 04:09 Dohle Bodies Not Reportable 08/04/16 04:09 Pelger-Huet Anomaly Not Reportable 08/04/16 04:09 Arlene Rods Not Reportable 08/04/16 04:09 Platelet Estimate Appears normal 08/04/16 04:09 Clumped Platelets Not Reportable 08/04/16 04:09 Plt Clumps, EDTA Not Reportable 08/04/16 04:09 Large Platelets Not Reportable 08/04/16 04:09 Giant Platelets Not Reportable 08/04/16 04:09 Platelet Satelliting Not Reportable 08/04/16 04:09 Plt Morphology Comment Not Reportable 08/04/16 04:09 RBC Morphology Not Reportable 08/04/16 04:09 Dimorphic RBCs Not Reportable 08/04/16 04:09 Polychromasia Not Reportable 08/04/16 04:09 Hypochromasia Not Reportable 08/04/16 04:09 Poikilocytosis Not Reportable 08/04/16 04:09 Anisocytosis 1+ 08/04/16 04:09 Microcytosis Not Reportable 08/04/16 04:09 Macrocytosis Not Reportable 08/04/16 04:09 Spherocytes Not Reportable 08/04/16 04:09 Pappenheimer Bodies Not Reportable 08/04/16 04:09 Sickle Cells Not Reportable 08/04/16 04:09 Target Cells Not Reportable 08/04/16 04:09 Tear Drop Cells Not Reportable 08/04/16 04:09 Ovalocytes Not Reportable 08/04/16 04:09 Helmet Cells Not Reportable 08/04/16 04:09 [place] Bodies Not Reportable 08/04/16 04:09 [place] Rings Not Reportable 08/04/16 04:09 Arielle Cells Not Reportable 08/04/16 04:09 Bite Cells Not Reportable 08/04/16 04:09 Crenated Cell Not Reportable 08/04/16 04:09 Elliptocytes Not Reportable 08/04/16 04:09 Acanthocytes (Spur) Not Reportable 08/04/16 04:09 Rouleaux Not Reportable 08/04/16 04:09 Hemoglobin C Crystals Not Reportable 08/04/16 04:09 Schistocytes Not Reportable 08/04/16 04:09 Malaria parasites Not Reportable 08/04/16 04:09 Lorenzo Bodies Not Reportable 08/04/16 04:09 Hem Pathologist Commnt No 08/04/16 04:09 PT 22.5 Sec. (12.2-14.9) H 07/29/16 22:55 INR 1.98 (0.87-1.13) H 07/29/16 22:55 VBG pH 7.405 (7.320-7.420) 07/29/16 22:55 Sodium 141 mmol/L (137-145) 08/04/16 04:09 Potassium 3.4 mmol/L (3.6-5.0) L 08/04/16 04:09 Chloride 103.9 mmol/L (98-107) 08/04/16 04:09 Carbon Dioxide 20 mmol/L (22-30) L 08/04/16 04:09 Anion Gap 21 mmol/L 08/04/16 04:09 BUN 20 mg/dL (9-20) 08/04/16 04:09 Creatinine 0.7 mg/dL (0.8-1.5) L 08/04/16 04:09 Estimated GFR > 60 ml/min 08/04/16 04:09 BUN/Creatinine Ratio 28.57 % 08/04/16 04:09 Glucose 70 mg/dL (75-100) L 08/04/16 04:09 Lactic Acid 3.0 mmol/L (0.7-2.0) H* 07/30/16 01:18 Calcium 7.5 mg/dL (8.4-10.2) L 08/04/16 04:09 Magnesium 2.0 mg/dL (1.7-2.3) 08/03/16 05:30 Total Bilirubin 1.2 mg/dL (0.1-1.2) 07/29/16 22:55 AST 55 units/L (5-40) H 07/29/16 22:55 ALT 22 units/L (7-56) 07/29/16 22:55 Alkaline Phosphatase 56 units/L (35-129) 07/29/16 22:55 Total Creatine Kinase 313 units/L (55-170) H 08/01/16 05:19 Total Protein 5.8 g/dL (6.3-8.2) L 07/29/16 22:55 Albumin 2.9 g/dL (3.9-5) L 07/29/16 22:55 Albumin/Globulin Ratio 1.0 % 07/29/16 22:55 Urine Color Lizy (Yellow) 07/30/16 03:29 Urine Turbidity Clear (Clear) 07/30/16 03:29 Urine pH 5.0 (5.0-7.0) 07/30/16 03:29 Ur Specific [place] 1.025 (1.003-1.030) 07/30/16 03:29 Urine Protein 30 mg/dl mg/dL (Negative) 07/30/16 03:29 Urine Glucose (UA) Neg mg/dL (Negative) 07/30/16 03:29 Urine Ketones Neg mg/dL (Negative) 07/30/16 03:29 Urine Blood Mod (Negative) 07/30/16 03:29 Urine Nitrite Neg (Negative) 07/30/16 03:29 Urine Bilirubin Neg (Negative) 07/30/16 03:29 Urine Urobilinogen 2.0 mg/dL (<2.0) 07/30/16 03:29 Ur Leukocyte Esterase Neg (Negative) 07/30/16 03:29 Urine WBC (Auto) 1.0 /HPF (0.0-6.0) 07/30/16 03:29 Urine RBC (Auto) 19.0 /HPF (0.0-6.0) 07/30/16 03:29 U Epithel Cells (Auto) < 1.0 /HPF (0-13.0) 07/30/16 03:29 Amorphous Crystals 1+ 07/30/16 03:29 Hyaline Casts 1 /LPF 07/30/16 03:29 Urine Mucus Few /HPF 07/30/16 03:29
[2016-08-04] MEDS: LANOXIN IV SCH (18:17)
[2016-08-04] MEDS: LOPRESSOR IV SCH (18:22)
--- NOTE | 2016-08-04 18:54 | Progress Note ---
Assessment and Plan Imp: 1. Cellulitis/Bacteremia/Sepsis 2/2 Group A strep 2. Toxic encephalopathy 2/2 above 3. MAGUI, resolved 4. Poor airway clearance 2/2 #2 5. Oropharyngeal dysphagia Rec: 1. Cont. ABX versus Group A strep 2. Sent surveillance cultures 3. Reviewed ST evaluation -> PEG recommended; alternatively could consider hospice 4. F/u Echo 5. Monitor clinically No family present Subjective Date of service: 08/04/16 Principal diagnosis: Cellulitis, Sepsis Interval history: Awake, alert. Unintelligible/garbled speech so cannot obtain history. On RA. Active Medications Acetaminophen (Tylenol) 650 mg PO Q4H PRN PRN Reason: Headache Last Admin: 07/31/16 21:03 Dose: 650 mg Al Hydrox/Mg Hydrox/Simethicone (Alum-Mag Hydrox-Simeth [phone]/5ml) 30 ml PO Q2H PRN PRN Reason: Indigestion Albuterol (Proventil) 2.5 mg IH Q6HRT PRN PRN Reason: Shortness Of Breath Atorvastatin Calcium (Lipitor) 20 mg PO QHS [facility] Last Admin: 08/03/16 22:24 Dose: Not Given Chlorpromazine HCl (Thorazine) 25 mg IM Q4H PRN PRN Reason: Agitation Dabigatran (Pradaxa) 150 mg PO BID [facility] Last Admin: 08/04/16 11:46 Dose: Not Given Digoxin (Lanoxin) 0.25 mg IV Q6HR [facility] Stop: 08/05/16 00:01 Last Admin: 08/04/16 18:17 Dose: 0.25 mg Digoxin (Lanoxin) 0.125 mg IV QDAY [facility] Sodium Chloride (Nacl 0.45% 1000 Ml) 1,000 mls @ 100 mls/hr IV DIRECT [facility] Last Admin: 08/03/16 05:18 Dose: 100 mls/hr Ceftriaxone Sodium (Rocephin/Ns 1 Gm/50 Ml) 50 mls @ 100 mls/hr IV Q24HR [facility] Last Admin: 08/04/16 11:46 Dose: Not Given Magnesium Hydroxide (Milk Of Magnesia) 30 ml PO Q12H PRN PRN Reason: Constipation Metoprolol Tartrate (Lopressor) 5 mg IV Q6HR [facility] Last Admin: 08/04/16 18:22 Dose: 5 mg Morphine Sulfate (Morphine) 2 mg IV Q4H PRN PRN Reason: Pain , Severe (7-10) Last Admin: 08/03/16 05:18 Dose: 2 mg Olanzapine (Zyprexa) 5 mg PO BID [facility] Last Admin: 08/04/16 11:46 Dose: Not Given Pantoprazole Sodium (Protonix) 40 mg PO QDAY [facility] Last Admin: 08/04/16 11:46 Dose: Not Given Objective Vital Signs - 12hr 08/04/16 08/04/16 08/04/16 07:51 11:14 11:39 Temperature 97.3 F L 98.4 F Pulse Rate Pulse Rate [ 76 107 H Apical] Respiratory 20 22 Rate Blood Pressure 132/80 Blood Pressure 130/74 132/80 [Right Calf] O2 Sat by Pulse 96 96 Oximetry 08/04/16 08/04/16 15:43 18:22 Temperature 96.3 F L Pulse Rate 90 Pulse Rate [ 109 H Apical] Respiratory 22 Rate Blood Pressure Blood Pressure 152/79 [Right Calf] O2 Sat by Pulse 96 Oximetry Constitutional: no acute distress, alert Eyes: non-icteric Neck: supple Effort: normal Ascultation: Bilateral: rhonchi (upper airway) Cardiovascular: other (tachy, RR; no mrg) Gastrointestinal: normoactive bowel sounds, soft, non-tender, non-distended Integumentary: cellulitis (RUE) Extremities: no cyanosis, pink and warm, edema (RUE) Neurologic: other (awake, nonfocal, confused) Psychiatric: other (unable to assess) CBC and BMP: 08/04/16 04:09 08/04/16 04:09 ABG, PT/INR, D-dimer: PT/INR, D-dimer PT 22.5 Sec. (12.2-14.9) H 07/29/16 22:55 INR 1.98 (0.87-1.13) H 07/29/16 22:55 Abnormal lab findings: Abnormal Labs 07/31/16 07/31/16 08/01/16 14:34 14:34 05:19 WBC 15.9 H 20.5 H Seg Neuts % (Manual) 96.0 H 71.0 H Lymphocytes % (Manual) 3.0 L 11.0 L Monocytes % (Manual) 8.0 H Seg Neutrophils # Man 15.3 H 14.6 H Lymphocytes # (Manual) 0.5 L Monocytes # (Manual) 1.6 H Sodium 135 L Potassium 3.2 L Carbon Dioxide 19 L BUN 24 H Creatinine Glucose 106 H Calcium 7.1 L Total Creatine Kinase 08/01/16 08/02/16 08/02/16 05:19 05:00 05:00 WBC 16.1 H Seg Neuts % (Manual) 96.0 H Lymphocytes % (Manual) 1.0 L Monocytes % (Manual) Seg Neutrophils # Man 15.5 H Lymphocytes # (Manual) 0.2 L Monocytes # (Manual) Sodium 133 L Potassium 2.8 L* 2.8 L* Carbon Dioxide 20 L 21 L BUN Creatinine 0.7 L 0.7 L Glucose 111 H Calcium 7.1 L 6.9 L Total Creatine Kinase 313 H 08/03/16 08/03/16 08/04/16 05:30 05:30 04:09 WBC 18.2 H 21.3 H Seg Neuts % (Manual) 86.0 H Lymphocytes % (Manual) 5.0 L 11.0 L Monocytes % (Manual) 9.0 H Seg Neutrophils # Man 15.7 H 11.9 H Lymphocytes # (Manual) 0.9 L Monocytes # (Manual) 1.9 H Sodium Potassium 3.4 L D Carbon Dioxide 20 L BUN Creatinine 0.7 L Glucose Calcium 7.5 L Total Creatine Kinase 08/04/16 04:09 WBC Seg Neuts % (Manual) Lymphocytes % (Manual) Monocytes % (Manual) Seg Neutrophils # Man Lymphocytes # (Manual) Monocytes # (Manual) Sodium Potassium 3.4 L Carbon Dioxide 20 L BUN Creatinine 0.7 L Glucose 70 L Calcium 7.5 L Total Creatine Kinase Chest x-ray: report reviewed, image reviewed
[2016-08-05] MEDS: LANOXIN IV SCH ×2 (00:48→10:53)
[2016-08-05] MEDS: LOPRESSOR IV SCH ×4 (00:51→19:45)
[2016-08-05 06:46] LABS: Hematocrit 37.1 % (35.5-45.6); Mean Corpuscular HGB Conc 32 % (32-34); Mean Corpuscular Hemoglobin 30 pg (28-32); Mean Corpuscular Volume 91 fl (84-94); Platelet Count 303 K/mm3 (140-440); Red Blood Count 4.07 M/mm3 (3.65-5.03); Red Cell Distribution Width 14.8 % (13.2-15.2)
[2016-08-05 06:52] LABS: White Blood Count 21.2 K/mm3 (4.5-11.0)
[2016-08-05 07:04] LABS: Alanine Aminotransferase 19 units/L (7-56); Albumin 1.8 g/dL (3.9-5); Albumin/Globulin Ratio 0.6 %; Alkaline Phosphatase 98 units/L (35-129); Anion Gap 18 mmol/L; BUN/Creatinine Ratio 28.57; Bilirubin,Total 0.6 mg/dL (0.1-1.2); Blood Urea Nitrogen 20 mg/dL (9-20); Calcium 7.4 mg/dL (8.4-10.2); Carbon Dioxide 23 mmol/L (22-30); Glucose 102 mg/dL (75-100); Potassium 3.5 mmol/L (3.6-5.0); Sodium 143 mmol/L (137-145); Total Protein 4.7 g/dL (6.3-8.2)
[2016-08-05 08:55] LABS: Anisocytosis 1+; Blastocytes % (Manual) 0 %; Diff Status Complete; Elliptocytes Few; Eosinophils % (Manual) 0 % (0.0-4.3); Giant Platelets Rare; Ovalocytes Few; Platelet Clumps Rare; Polychromasia 1+
--- NOTE | 2016-08-05 10:08 | Progress Note ---
Addendum entered and electronically signed by MONROE MOORE MD 11:57: Agree with Mrs Reagan assessment and plan Switch to po metoprolol 50 mh po bid and po digoxin 0.125 mg po daily once able to take po Continue pradaxa No further cardiac intervention Will sign off Original Note: Assessment and Plan Sepsis with septic shock due to right upper extremity cellulitis Paroxysmal A fib on IV lopressor and IV digoxin Dysphagia Acute renal failure - resolved Hypokalemia Rhabdomyolysis Acute metabolic encephalopathy Left upper extremity edema/warmth status post PICC placement 07/31 no evidence of acute DVT -venous duplex Hx of CAD status post CABG Psychiatric disorder/dementia Plan: Continue IV Lopressor and IV digoxin for his paroxysmal afib. Subjective Date of service: 08/05/16 Principal diagnosis: Cellulitis, Sepsis Interval history: Patient alert with confusion. Atrial fibrillation with a well controlled ventricular rate on telemetry. Objective Vital Signs Temp Pulse Pulse Pulse Resp BP BP 08/05/16 07:28 98.0 F 80 22 131/63 08/05/16 06:21 90 127/69 08/05/16 05:35 98.2 F 90 22 08/05/16 00:51 100 H 133/73 08/05/16 00:48 95 H 133/73 08/05/16 00:19 98.4 F 100 H 20 08/04/16 22:00 94 H 08/04/16 21:01 98.7 F 95 H 22 08/04/16 18:22 90 08/04/16 15:43 96.3 F L 109 H 22 08/04/16 11:39 132/80 08/04/16 11:14 98.4 F 107 H 22 BP Pulse Ox 08/05/16 07:28 91 08/05/16 06:21 08/05/16 05:35 127/69 95 08/05/16 00:51 08/05/16 00:48 08/05/16 00:19 133/73 94 08/04/16 22:00 08/04/16 21:01 125/62 94 08/04/16 18:22 08/04/16 15:43 152/79 96 08/04/16 11:39 08/04/16 11:14 132/80 96 - Physical Examination General: No Apparent Distress HEENT: Positive: Pallor Neck: Negative: JVD/HJR Cardiac: Positive: irregularly irregular - Labs and Meds Cardiac Enzymes 08/05/16 Range/Units 06:00 AST 26 (5-40) units/L CBC 08/05/16 Range/Units 06:00 WBC 21.2 H (4.5-11.0) K/mm3 RBC 4.07 (3.65-5.03) M/mm3 Hgb 12.0 (11.8-15.2) gm/dl Hct 37.1 (35.5-45.6) % Plt Count 303 (140-440) K/mm3 Comprehensive Metabolic Panel 08/05/16 Range/Units 06:00 Sodium 143 (137-145) mmol/L Potassium 3.5 L (3.6-5.0) mmol/L Chloride 106.0 (98-107) mmol/L Carbon Dioxide 23 (22-30) mmol/L BUN 20 (9-20) mg/dL Creatinine 0.7 L (0.8-1.5) mg/dL Glucose 102 H (75-100) mg/dL Calcium 7.4 L (8.4-10.2) mg/dL AST 26 (5-40) units/L ALT 19 (7-56) units/L Alkaline Phosphatase 98 (35-129) units/L Total Protein 4.7 L (6.3-8.2) g/dL Albumin 1.8 L (3.9-5) g/dL - Imaging and Cardiology EKG: image reviewed
[2016-08-05] MEDS: PROTONIX IV SCH ×2 (10:52→21:33)
[2016-08-05] MEDS: ROCEPHIN/NS 1 GM/50 ML 50 ML IV SCH (10:53)
[2016-08-05] MEDS: PRADAXA PO SCH ×2 (10:55→21:33)
[2016-08-05] MEDS ORDERED: SIMPLE SYRUP FEEDTUBE PRN ×2 (13:53)
[2016-08-05] MEDS ORDERED: PANCREAZE DR 10,500 UNIT FEEDTUBE PRN (13:53)
[2016-08-05] MEDS ORDERED: SODIUM BICARBONATE FEEDTUBE PRN (13:53)
--- NOTE | 2016-08-05 16:54 | Progress Note ---
Assessment and Plan Assessment and plan: Sepsis with septic shock due to right upper extremity cellulitis * weaned off from pressor. Continue antibiotics * Monitor WBC count New onset A. fib with RVR * Patient was Was on Diltiazem on admission and required an amiodarone drip * Receiving iv labetalol and digoxin for rate control now as patient nothing by mouth * Cardiology recommended anticoagulation with Pradaxa, which his not getting because of NPO status * We will bridge him with therapeutic dose of Lovenox, until he gets placed with NG tube Acute renal failure * Likely secondary to vasomotor nephropathy/rhabdomyolysis * Resolved with IV fluids Hypokalemia * Status post aggressive IV replacement Rhabdomyolysis * CPK trended down with IV fluids Acute metabolic/toxic encephalopathy * Treating underlying conditions (sepsis and dehydration) * Cannot rule out acute CVA * will get MRI of the brain Left upper extremity edema/warmth * Status post PICC placement 07/31 * Doppler obtained and negative for DVT/SVT CAD Status post CABG * Beta yary and LASHONDA inhibitor were on hold due to hypotension/acute renal failure * We will resume after placing NG tube Severe dilated cardiomyopathy * Echo showing dilated cardiomyopathy with EF 20-25%, abnormal diastolic function * On beta yary IV for rate control also * Plan to start LASHONDA inhibitor when able to take by mouth or after following NG daily * Cardiology following Hyperlipidemia * Continue statin after placing NG tube (simvastatin changed to atorvastatin by finishing range supervisor due to interaction with Pradaxa) Psychiatric disorder/dementia * On Zyprexa, Supportive care DVT prophylaxis * switch to Lovenox treatment dose, as he did not pass the swallow study Dysphagia * Did not pass swallow study, 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 Medical records and medication list reviewed. No acute event overnight noted by the RN. Patient unable to speak and minimally follows commands. Patient failed swallow study, speech therapy recommended PEG tube Discussed plan of care with patient's daughter about PEG tube placement. Daughter wants to consider the possibility for hospice, caseworker intake notified. Hospitalist Physical - Physical exam Narrative exam: GENERAL: well-developed male lying on bed appeared to be in no discomfort. HEENT: Normocephalic. Atraumatic. No conjunctival congestion or icterus. Patient appears to be aphasic. NECK: Supple. Trachea midline. CHEST/LUNGS: Clear to auscultated bilaterally, breathing nonlabored. No wheezes crackles or rhonchi. HEART/CARDIOVASCULAR: Regular in rate and rhythm. S1 and S2 positive. ABDOMEN: Abdomen is soft, nontender. Patient has normal bowel sounds. SKIN: There is no rash. Warm and dry. NEURO: Follows command minimally. MUSCULOSKELETAL: No joint effusion or tenderness. EXTRIMITY: No edema, no cyanosis or clubbing. PSYCH: Unable to assess. - Constitutional Vitals: Temp Pulse Resp BP Pulse Ox 98.3 F 76 20 153/70 94 08/05/16 13:10 08/05/16 13:10 08/05/16 13:10 08/05/16 13:10 08/05/16 13:10 General appearance: Present: no acute distress Results - Labs CBC & Chem 7: 08/05/16 06:00 08/05/16 06:00 Labs: Laboratory Last Values WBC 21.2 K/mm3 (4.5-11.0) H 08/05/16 06:00 RBC 4.07 M/mm3 (3.65-5.03) 08/05/16 06:00 Hgb 12.0 gm/dl (11.8-15.2) 08/05/16 06:00 Hct 37.1 % (35.5-45.6) 08/05/16 06:00 MCV 91 fl (84-94) 08/05/16 06:00 MCH 30 pg (28-32) 08/05/16 06:00 MCHC 32 % (32-34) 08/05/16 06:00 RDW 14.8 % (13.2-15.2) 08/05/16 06:00 Plt Count 303 K/mm3 (140-440) 08/05/16 06:00 Lymph % (Auto) 5.4 % (13.4-35.0) L 07/29/16 22:15 [place] % (Auto) 4.6 % (0.0-7.3) 07/29/16 22:15 Eos % (Auto) 0.0 % (0.0-4.3) 07/29/16 22:15 Baso % (Auto) 0.1 % (0.0-1.8) 07/29/16 22:15 Lymph # 1.0 K/mm3 (1.2-5.4) L 07/29/16 22:15 [place] # 0.9 K/mm3 (0.0-0.8) H 07/29/16 22:15 Eos # 0.0 K/mm3 (0.0-0.4) 07/29/16 22:15 Baso # 0.0 K/mm3 (0.0-0.1) 07/29/16 22:15 Add Manual Diff Complete 08/05/16 06:00 Total Counted 100 08/05/16 06:00 Seg Neutrophils % Job Press Operator 08/03/16 05:30 Seg Neuts % (Manual) 56.0 % (40.0-70.0) 08/04/16 04:09 Band Neutrophils % 0 % 08/05/16 06:00 Lymphocytes % (Manual) 4.0 % (13.4-35.0) L 08/05/16 06:00 Reactive Lymphs % (Man) 0 % 08/05/16 06:00 Monocytes % (Manual) 0 % (0.0-7.3) 08/05/16 06:00 Eosinophils % (Manual) 0 % (0.0-4.3) 08/05/16 06:00 Basophils % (Manual) 1.0 % (0.0-1.8) 08/05/16 06:00 Metamyelocytes % 0 % 08/05/16 06:00 Myelocytes % 0 % 08/05/16 06:00 Promyelocytes % 0 % 08/05/16 06:00 Blast Cells % 0 % 08/05/16 06:00 Nucleated RBC % Not Reportable 08/05/16 06:00 Seg Neutrophils # 17.5 K/mm3 (1.8-7.7) H 07/29/16 22:15 Seg Neutrophils # Man 20.1 K/mm3 (1.8-7.7) H 08/05/16 06:00 Band Neutrophils # 0.0 K/mm3 08/05/16 06:00 Lymphocytes # (Manual) 0.8 K/mm3 (1.2-5.4) L 08/05/16 06:00 Abs React Lymphs (Man) 0.0 K/mm3 08/05/16 06:00 Monocytes # (Manual) 0.0 K/mm3 (0.0-0.8) 08/05/16 06:00 Eosinophils # (Manual) 0.0 K/mm3 (0.0-0.4) 08/05/16 06:00 Basophils # (Manual) 0.2 K/mm3 (0.0-0.1) H 08/05/16 06:00 Metamyelocytes # 0.0 K/mm3 08/05/16 06:00 Myelocytes # 0.0 K/mm3 08/05/16 06:00 Promyelocytes # 0.0 K/mm3 08/05/16 06:00 Blast Cells # 0.0 K/mm3 08/05/16 06:00 WBC Morphology Not Reportable 08/05/16 06:00 Hypersegmented Neuts Not Reportable 08/05/16 06:00 Hyposegmented Neuts Not Reportable 08/05/16 06:00 Hypogranular Neuts Not Reportable 08/05/16 06:00 Smudge Cells Not Reportable 08/05/16 06:00 Toxic Granulation Not Reportable 08/05/16 06:00 Toxic Vacuolation Not Reportable 08/05/16 06:00 Dohle Bodies Not Reportable 08/05/16 06:00 Pelger-Huet Anomaly Not Reportable 08/05/16 06:00 Arlene Rods Not Reportable 08/05/16 06:00 Platelet Estimate Appears normal 08/05/16 06:00 Clumped Platelets Rare 08/05/16 06:00 Plt Clumps, EDTA Not Reportable 08/05/16 06:00 Large Platelets Not Reportable 08/05/16 06:00 Giant Platelets Rare 08/05/16 06:00 Platelet Satelliting Not Reportable 08/05/16 06:00 Plt Morphology Comment Not Reportable 08/05/16 06:00 RBC Morphology Not Reportable 08/05/16 06:00 Dimorphic RBCs Not Reportable 08/05/16 06:00 Polychromasia 1+ 08/05/16 06:00 Hypochromasia Not Reportable 08/05/16 06:00 Poikilocytosis Not Reportable 08/05/16 06:00 Anisocytosis 1+ 08/05/16 06:00 Microcytosis Not Reportable 08/05/16 06:00 Macrocytosis Not Reportable 08/05/16 06:00 Spherocytes Not Reportable 08/05/16 06:00 Pappenheimer Bodies Not Reportable 08/05/16 06:00 Sickle Cells Not Reportable 08/05/16 06:00 Target Cells Not Reportable 08/05/16 06:00 Tear Drop Cells Not Reportable 08/05/16 06:00 Ovalocytes Few 08/05/16 06:00 Helmet Cells Not Reportable 08/05/16 06:00 [place] Bodies Not Reportable 08/05/16 06:00 [place] Rings Not Reportable 08/05/16 06:00 Arielle Cells Not Reportable 08/05/16 06:00 Bite Cells Not Reportable 08/05/16 06:00 Crenated Cell Not Reportable 08/05/16 06:00 Elliptocytes Few 08/05/16 06:00 Acanthocytes (Spur) Not Reportable 08/05/16 06:00 Rouleaux Not Reportable 08/05/16 06:00 Hemoglobin C Crystals Not Reportable 08/05/16 06:00 Schistocytes Not Reportable 08/05/16 06:00 Malaria parasites Not Reportable 08/05/16 06:00 Lorenzo Bodies Not Reportable 08/05/16 06:00 Hem Pathologist Commnt No 08/05/16 06:00 PT 22.5 Sec. (12.2-14.9) H 07/29/16 22:55 INR 1.98 (0.87-1.13) H 07/29/16 22:55 VBG pH 7.405 (7.320-7.420) 07/29/16 22:55 Sodium 143 mmol/L (137-145) 08/05/16 06:00 Potassium 3.5 mmol/L (3.6-5.0) L 08/05/16 06:00 Chloride 106.0 mmol/L (98-107) 08/05/16 06:00 Carbon Dioxide 23 mmol/L (22-30) 08/05/16 06:00 Anion Gap 18 mmol/L 08/05/16 06:00 BUN 20 mg/dL (9-20) 08/05/16 06:00 Creatinine 0.7 mg/dL (0.8-1.5) L 08/05/16 06:00 Estimated GFR > 60 ml/min 08/05/16 06:00 BUN/Creatinine Ratio 28.57 % 08/05/16 06:00 Glucose 102 mg/dL (75-100) H 08/05/16 06:00 Lactic Acid 3.0 mmol/L (0.7-2.0) H* 07/30/16 01:18 Calcium 7.4 mg/dL (8.4-10.2) L 08/05/16 06:00 Magnesium 2.0 mg/dL (1.7-2.3) 08/03/16 05:30 Total Bilirubin 0.6 mg/dL (0.1-1.2) 08/05/16 06:00 AST 26 units/L (5-40) 08/05/16 06:00 ALT 19 units/L (7-56) 08/05/16 06:00 Alkaline Phosphatase 98 units/L (35-129) 08/05/16 06:00 Total Creatine Kinase 313 units/L (55-170) H 08/01/16 05:19 Total Protein 4.7 g/dL (6.3-8.2) L 08/05/16 06:00 Albumin 1.8 g/dL (3.9-5) L 08/05/16 06:00 Albumin/Globulin Ratio 0.6 % 08/05/16 06:00 Urine Color Lizy (Yellow) 07/30/16 03:29 Urine Turbidity Clear (Clear) 07/30/16 03:29 Urine pH 5.0 (5.0-7.0) 07/30/16 03:29 Ur Specific [place] 1.025 (1.003-1.030) 07/30/16 03:29 Urine Protein 30 mg/dl mg/dL (Negative) 07/30/16 03:29 Urine Glucose (UA) Neg mg/dL (Negative) 07/30/16 03:29 Urine Ketones Neg mg/dL (Negative) 07/30/16 03:29 Urine Blood Mod (Negative) 07/30/16 03:29 Urine Nitrite Neg (Negative) 07/30/16 03:29 Urine Bilirubin Neg (Negative) 07/30/16 03:29 Urine Urobilinogen 2.0 mg/dL (<2.0) 07/30/16 03:29 Ur Leukocyte Esterase Neg (Negative) 07/30/16 03:29 Urine WBC (Auto) 1.0 /HPF (0.0-6.0) 07/30/16 03:29 Urine RBC (Auto) 19.0 /HPF (0.0-6.0) 07/30/16 03:29 U Epithel Cells (Auto) < 1.0 /HPF (0-13.0) 07/30/16 03:29 Amorphous Crystals 1+ 07/30/16 03:29 Hyaline Casts 1 /LPF 07/30/16 03:29 Urine Mucus Few /HPF 07/30/16 03:29
--- NOTE | 2016-08-05 18:41 | Progress Note ---
Assessment and Plan Imp: 1. Cellulitis/Bacteremia/Sepsis 2/2 Group A strep 2. Toxic encephalopathy 2/2 above 3. MAGUI, resolved 4. Poor airway clearance 2/2 #2 5. Oropharyngeal dysphagia 6. Dilated CMP Rec: 1. Cont. ABX versus Group A strep 2. Sent surveillance cultures 3. Reviewed ST evaluation -> PEG recommended; alternatively could consider hospice 4. Reviewed Echo report 5. Monitor clinically No family present Subjective Date of service: 08/05/16 Principal diagnosis: Cellulitis, Sepsis Interval history: Awake, alert. Unintelligible/garbled speech so cannot obtain history. On RA. Active Medications Acetaminophen (Tylenol) 650 mg PO Q4H PRN PRN Reason: Headache Last Admin: 07/31/16 21:03 Dose: 650 mg Al Hydrox/Mg Hydrox/Simethicone (Alum-Mag Hydrox-Simeth 413-572-89cg/5ml) 30 ml PO Q2H PRN PRN Reason: Indigestion Albuterol (Proventil) 2.5 mg IH Q6HRT PRN PRN Reason: Shortness Of Breath Lipase/Protease/Amylase (Pancreaze Dr 10,500 Unit) 1 each FEEDTUBE PRN PRN PRN Reason: For Clogged Feeding Tube Atorvastatin Calcium (Lipitor) 20 mg PO QHS [facility] Last Admin: 08/04/16 22:00 Dose: Not Given Chlorpromazine HCl (Thorazine) 25 mg IM Q4H PRN PRN Reason: Agitation Dabigatran (Pradaxa) 150 mg PO BID [facility] Last Admin: 08/05/16 10:55 Dose: Not Given Digoxin (Lanoxin) 0.125 mg IV QDAY [facility] Last Admin: 08/05/16 10:53 Dose: 0.125 mg Sodium Chloride (Nacl 0.45% 1000 Ml) 1,000 mls @ 100 mls/hr IV DIRECT [facility] Last Admin: 08/03/16 05:18 Dose: 100 mls/hr Ceftriaxone Sodium (Rocephin/Ns 1 Gm/50 Ml) 50 mls @ 100 mls/hr IV Q24HR [facility] Last Admin: 08/05/16 10:53 Dose: 100 mls/hr Magnesium Hydroxide (Milk Of Magnesia) 30 ml PO Q12H PRN PRN Reason: Constipation Metoprolol Tartrate (Lopressor) 5 mg IV Q6HR [facility] Last Admin: 08/05/16 18:28 Dose: 5 mg Morphine Sulfate (Morphine) 2 mg IV Q4H PRN PRN Reason: Pain , Severe (7-10) Last Admin: 08/03/16 05:18 Dose: 2 mg Olanzapine (Zyprexa) 5 mg PO BID [facility] Last Admin: 08/05/16 10:55 Dose: Not Given Pantoprazole Sodium (Protonix) 40 mg IV BID [facility] Last Admin: 08/05/16 10:52 Dose: 40 mg Simple Syrup (Simple Syrup) 15 ml FEEDTUBE PRN PRN PRN Reason: Hypoglycemia Simple Syrup (Simple Syrup) 30 ml FEEDTUBE PRN PRN PRN Reason: Hypoglycemia Sodium Bicarbonate (Sodium Bicarbonate) 325 mg FEEDTUBE PRN PRN PRN Reason: For Clogged Feeding Tube Objective Vital Signs - 12hr 08/05/16 08/05/16 08/05/16 07:28 10:53 13:10 Temperature 98.0 F 98.3 F Pulse Rate Pulse Rate [ 80 76 Right Radial] Respiratory 22 20 Rate Blood Pressure 132/72 Blood Pressure 131/63 153/70 [Left Calf] O2 Sat by Pulse 91 94 Oximetry 08/05/16 18:28 Temperature Pulse Rate 92 H Pulse Rate [ Right Radial] Respiratory Rate Blood Pressure Blood Pressure [Left Calf] O2 Sat by Pulse Oximetry Constitutional: no acute distress, alert Eyes: non-icteric Neck: supple Effort: normal Ascultation: Bilateral: rhonchi (upper airway) Cardiovascular: other (tachy, RR; no mrg) Gastrointestinal: normoactive bowel sounds, soft, non-tender, non-distended Integumentary: cellulitis (RUE) Extremities: no cyanosis, pink and warm, edema (RUE) Neurologic: other (awake, nonfocal, confused) Psychiatric: other (unable to assess) CBC and BMP: 08/05/16 06:00 08/05/16 06:00 ABG, PT/INR, D-dimer: PT/INR, D-dimer PT 22.5 Sec. (12.2-14.9) H 07/29/16 22:55 INR 1.98 (0.87-1.13) H 07/29/16 22:55 Abnormal lab findings: Abnormal Labs 01/01/0907/31/16 08/01/16 14:34 14:34 05:19 WBC 15.9 H 20.5 H Seg Neuts % (Manual) 96.0 H 71.0 H Lymphocytes % (Manual) 3.0 L 11.0 L Monocytes % (Manual) 8.0 H Seg Neutrophils # Man 15.3 H 14.6 H Lymphocytes # (Manual) 0.5 L Monocytes # (Manual) 1.6 H Basophils # (Manual) Sodium 135 L Potassium 3.2 L Carbon Dioxide 19 L BUN 24 H Creatinine Glucose 106 H Calcium 7.1 L Total Creatine Kinase Total Protein Albumin 08/01/16 08/02/16 08/02/16 05:19 05:00 05:00 WBC 16.1 H Seg Neuts % (Manual) 96.0 H Lymphocytes % (Manual) 1.0 L Monocytes % (Manual) Seg Neutrophils # Man 15.5 H Lymphocytes # (Manual) 0.2 L Monocytes # (Manual) Basophils # (Manual) Sodium 133 L Potassium 2.8 L* 2.8 L* Carbon Dioxide 20 L 21 L BUN Creatinine 0.7 L 0.7 L Glucose 111 H Calcium 7.1 L 6.9 L Total Creatine Kinase 313 H Total Protein Albumin 08/03/16 08/03/16 08/04/16 05:30 05:30 04:09 WBC 18.2 H 21.3 H Seg Neuts % (Manual) 86.0 H Lymphocytes % (Manual) 5.0 L 11.0 L Monocytes % (Manual) 9.0 H Seg Neutrophils # Man 15.7 H 11.9 H Lymphocytes # (Manual) 0.9 L Monocytes # (Manual) 1.9 H Basophils # (Manual) Sodium Potassium 3.4 L D Carbon Dioxide 20 L BUN Creatinine 0.7 L Glucose Calcium 7.5 L Total Creatine Kinase Total Protein Albumin 08/04/16 08/05/16 08/05/16 04:09 06:00 06:00 WBC 21.2 H Seg Neuts % (Manual) Lymphocytes % (Manual) 4.0 L Monocytes % (Manual) Seg Neutrophils # Man 20.1 H Lymphocytes # (Manual) 0.8 L Monocytes # (Manual) Basophils # (Manual) 0.2 H Sodium Potassium 3.4 L 3.5 L Carbon Dioxide 20 L BUN Creatinine 0.7 L 0.7 L Glucose 70 L 102 H Calcium 7.5 L 7.4 L Total Creatine Kinase Total Protein 4.7 L Albumin 1.8 L Chest x-ray: report reviewed, image reviewed
[2016-08-06] MEDS: LOPRESSOR IV SCH ×4 (01:25→18:40)
[2016-08-06 09:50] LABS: Hematocrit 38.3 % (35.5-45.6); Hemoglobin 12.5 gm/dl (11.8-15.2); Mean Corpuscular HGB Conc 33 % (32-34); Mean Corpuscular Hemoglobin 30 pg (28-32); Mean Corpuscular Volume 90 fl (84-94); Platelet Count 303 K/mm3 (140-440); Red Blood Count 4.24 M/mm3 (3.65-5.03); Red Cell Distribution Width 14.6 % (13.2-15.2)
[2016-08-06 09:55] LABS: White Blood Count 21.1 K/mm3 (4.5-11.0)
[2016-08-06 10:02] LABS: Blood Urea Nitrogen 15 mg/dL (9-20); Calcium 7.2 mg/dL (8.4-10.2); Carbon Dioxide 23 mmol/L (22-30); Chloride 105.8 mmol/L (98-107); Glucose 98 mg/dL (75-100); Potassium 3.4 mmol/L (3.6-5.0); Sodium 141 mmol/L (137-145)
[2016-08-06 10:03] LABS: Anion Gap 16 mmol/L
[2016-08-06] MEDS: LOVENOX SUB-Q SCH ×2 (11:10→18:30)
[2016-08-06] MEDS: PRADAXA PO SCH (11:34)
[2016-08-06] MEDS: PROTONIX IV SCH ×2 (12:31→22:12)
[2016-08-06] MEDS: ASPIRIN PO SCH (12:38)
[2016-08-06] MEDS: LANOXIN IV SCH (12:44)
[2016-08-06] MEDS: ROCEPHIN/NS 1 GM/50 ML 50 ML IV SCH (12:46)
--- NOTE | 2016-08-06 14:12 | Progress Note ---
Assessment and Plan Imp: 1. Cellulitis/Bacteremia/Sepsis 2/2 Group A strep 2. Toxic encephalopathy 2/2 above -> improving 3. MAGUI, resolved 4. Poor airway clearance 2/2 #2 5. Oropharyngeal dysphagia 6. Dilated CMP Rec: 1. Cont. ABX versus Group A strep 2. Sent surveillance cultures -> neg 3. Consider repeating ST evaluation since he is more alert now 4. Reviewed Echo report 5. Pulm-[place]gas stable; will sign off; call with questions, or if new issues arise Plan of care reviewed w/ family, they understand/agree Subjective Date of service: 08/06/16 Principal diagnosis: Cellulitis, Sepsis Interval history: Awake, alert. More alert and appropriate today. No complaints. On RA. Active Medications Acetaminophen (Tylenol) 650 mg PO Q4H PRN PRN Reason: Headache Last Admin: 07/31/16 21:03 Dose: 650 mg Al Hydrox/Mg Hydrox/Simethicone (Alum-Mag Hydrox-Simeth [phone]/5ml) 30 ml PO Q2H PRN PRN Reason: Indigestion Albuterol (Proventil) 2.5 mg IH Q6HRT PRN PRN Reason: Shortness Of Breath Lipase/Protease/Amylase (Pancreaze Dr 10,500 Unit) 1 each FEEDTUBE PRN PRN PRN Reason: For Clogged Feeding Tube Aspirin (Aspirin) 325 mg PO QDAY [facility] Last Admin: 08/06/16 12:38 Dose: Not Given Atorvastatin Calcium (Lipitor) 20 mg PO QHS [facility] Last Admin: 08/05/16 21:33 Dose: Not Given Chlorpromazine HCl (Thorazine) 25 mg IM Q4H PRN PRN Reason: Agitation Digoxin (Lanoxin) 0.125 mg IV QDAY [facility] Last Admin: 08/06/16 12:44 Dose: 0.125 mg Enoxaparin Sodium (Lovenox) 80 mg SUB-Q Q12HR [facility] Sodium Chloride (Nacl 0.45% 1000 Ml) 1,000 mls @ 100 mls/hr IV DIRECT [facility] Last Admin: 08/03/16 05:18 Dose: 100 mls/hr Ceftriaxone Sodium (Rocephin/Ns 1 Gm/50 Ml) 50 mls @ 100 mls/hr IV Q24HR [facility] Last Admin: 08/06/16 12:46 Dose: 100 mls/hr Magnesium Hydroxide (Milk Of Magnesia) 30 ml PO Q12H PRN PRN Reason: Constipation Metoprolol Tartrate (Lopressor) 5 mg IV Q6HR [facility] Last Admin: 08/06/16 18:40 Dose: 5 mg Morphine Sulfate (Morphine) 2 mg IV Q4H PRN PRN Reason: Pain , Severe (7-10) Last Admin: 08/03/16 05:18 Dose: 2 mg Olanzapine (Zyprexa) 5 mg PO BID [facility] Last Admin: 08/06/16 11:34 Dose: Not Given Pantoprazole Sodium (Protonix) 40 mg IV BID [facility] Last Admin: 08/06/16 12:31 Dose: 40 mg Simple Syrup (Simple Syrup) 15 ml FEEDTUBE PRN PRN PRN Reason: Hypoglycemia Simple Syrup (Simple Syrup) 30 ml FEEDTUBE PRN PRN PRN Reason: Hypoglycemia Sodium Bicarbonate (Sodium Bicarbonate) 325 mg FEEDTUBE PRN PRN PRN Reason: For Clogged Feeding Tube Objective Vital Signs - 12hr 08/06/16 08/06/16 08/06/16 05:22 06:05 09:22 Temperature 98.3 F 97.8 F Pulse Rate 88 Pulse Rate [ 78 From Monitor] Pulse Rate [ 92 H Right Radial] Respiratory 18 20 Rate Blood Pressure 146/66 Blood Pressure 118/65 [Left Radial Artery] Blood Pressure 155/75 [Right Calf] O2 Sat by Pulse 97 95 Oximetry 08/06/16 08/06/16 12:31 12:44 Temperature Pulse Rate 84 80 Pulse Rate [ From Monitor] Pulse Rate [ Right Radial] Respiratory Rate Blood Pressure Blood Pressure [Left Radial Artery] Blood Pressure [Right Calf] O2 Sat by Pulse Oximetry Constitutional: no acute distress, alert Eyes: non-icteric Neck: supple Effort: normal Ascultation: Bilateral: clear Cardiovascular: regular rate and rhythm (no mrg) Gastrointestinal: normoactive bowel sounds, soft, non-tender, non-distended Integumentary: cellulitis (RUE) Extremities: no cyanosis, pink and warm, edema (RUE) Neurologic: normal mental status, non-focal exam, pupils equal and round Psychiatric: mood appropriate, affect normal CBC and BMP: 08/06/16 09:30 08/06/16 09:30 ABG, PT/INR, D-dimer: PT/INR, D-dimer PT 22.5 Sec. (12.2-14.9) H 07/29/16 22:55 INR 1.98 (0.87-1.13) H 07/29/16 22:55 Abnormal lab findings: Abnormal Labs 07/31/16 07/31/16 08/01/16 14:34 14:34 05:19 WBC 15.9 H 20.5 H Seg Neuts % (Manual) 96.0 H 71.0 H Lymphocytes % (Manual) 3.0 L 11.0 L Monocytes % (Manual) 8.0 H Seg Neutrophils # Man 15.3 H 14.6 H Lymphocytes # (Manual) 0.5 L Monocytes # (Manual) 1.6 H Basophils # (Manual) Sodium 135 L Potassium 3.2 L Carbon Dioxide 19 L BUN 24 H Creatinine Glucose 106 H Calcium 7.1 L Total Creatine Kinase Total Protein Albumin 08/01/16 08/02/16 08/02/16 05:19 05:00 05:00 WBC 16.1 H Seg Neuts % (Manual) 96.0 H Lymphocytes % (Manual) 1.0 L Monocytes % (Manual) Seg Neutrophils # Man 15.5 H Lymphocytes # (Manual) 0.2 L Monocytes # (Manual) Basophils # (Manual) Sodium 133 L Potassium 2.8 L* 2.8 L* Carbon Dioxide 20 L 21 L BUN Creatinine 0.7 L 0.7 L Glucose 111 H Calcium 7.1 L 6.9 L Total Creatine Kinase 313 H Total Protein Albumin 08/03/16 08/03/16 08/04/16 05:30 05:30 04:09 WBC 18.2 H 21.3 H Seg Neuts % (Manual) 86.0 H Lymphocytes % (Manual) 5.0 L 11.0 L Monocytes % (Manual) 9.0 H Seg Neutrophils # Man 15.7 H 11.9 H Lymphocytes # (Manual) 0.9 L Monocytes # (Manual) 1.9 H Basophils # (Manual) Sodium Potassium 3.4 L D Carbon Dioxide 20 L BUN Creatinine 0.7 L Glucose Calcium 7.5 L Total Creatine Kinase Total Protein Albumin 08/04/16 08/05/16 08/05/16 04:09 06:00 06:00 WBC 21.2 H Seg Neuts % (Manual) Lymphocytes % (Manual) 4.0 L Monocytes % (Manual) Seg Neutrophils # Man 20.1 H Lymphocytes # (Manual) 0.8 L Monocytes # (Manual) Basophils # (Manual) 0.2 H Sodium Potassium 3.4 L 3.5 L Carbon Dioxide 20 L BUN Creatinine 0.7 L 0.7 L Glucose 70 L 102 H Calcium 7.5 L 7.4 L Total Creatine Kinase Total Protein 4.7 L Albumin 1.8 L 08/06/16 08/06/16 09:30 09:30 WBC 21.1 H Seg Neuts % (Manual) Lymphocytes % (Manual) Monocytes % (Manual) Seg Neutrophils # Man Lymphocytes # (Manual) Monocytes # (Manual) Basophils # (Manual) Sodium Potassium Carbon Dioxide BUN Creatinine 0.5 L Glucose Calcium 7.2 L Total Creatine Kinase Total Protein Albumin Chest x-ray: report reviewed, image reviewed
--- NOTE | 2016-08-06 16:29 | Progress Note ---
Assessment and Plan Assessment and plan: Sepsis with septic shock due to right upper extremity cellulitis * weaned off from pressor. Continue antibiotics * Monitor WBC count New onset A. fib with RVR * Patient was Was on Diltiazem on admission and required an amiodarone drip * Receiving iv labetalol and digoxin for rate control now as patient nothing by mouth * Cardiology recommended anticoagulation with Pradaxa, which his not getting because of NPO status * We will bridge him with therapeutic dose of Lovenox, until he Can tolerate by mouth Acute renal failure * Likely secondary to vasomotor nephropathy/rhabdomyolysis * Resolved with IV fluids Hypokalemia * Status post aggressive IV replacement Rhabdomyolysis * CPK trended down with IV fluids Acute metabolic/toxic encephalopathy * Treating underlying conditions (sepsis and dehydration), much improved today * MRI of the brain still pending Left upper extremity edema/warmth * Status post PICC placement 07/31 * Doppler obtained and negative for DVT/SVT CAD Status post CABG * Beta yary and LASHONDA inhibitor were on hold due to hypotension/acute renal failure * We will resume when he can tolerate by mouth Severe dilated cardiomyopathy * Echo showing dilated cardiomyopathy with EF 20-25%, abnormal diastolic function * On beta yary IV for rate control also * Plan to start LASHONDA inhibitor when able to take by mouth * Cardiology following Hyperlipidemia * Continue statin if cleared by swallow study (simvastatin changed to atorvastatin by folder machine due to interaction with Pradaxa) Psychiatric disorder/dementia * On Zyprexa, Supportive care DVT prophylaxis * switch to Lovenox treatment dose, as he did not pass the swallow study Dysphagia * Did not pass swallow study, 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 MRI of the brain for possible acute CVA still pending * Discussed the option with the patient and his family, they all want to have a repeat swallow study * Ordered a barium swallow to test for diuretics for respiration History Interval history: Patient seen and examined. Medical records and medication list reviewed. No acute event overnight noted by the RN. Patient appears to be communicative today and able to follow commands. Patient failed swallow study, speech therapy recommended PEG tube Discussed plan of care with patient's niece who is his POA about PEG tube placement at the bedside today. Since patient appears more alert and oriented today she will have a barium swallow study to further evaluate his aspiration risk. Patient niece stated that patient is DO NOT RESUSCITATE CODE STATUS, when it was asked to the patient if he is willing to have the PICC tube if in case he fails the swallow study again, patient verbalized understanding and stated that he does want to proceed with PEG tube placement if he again fails to swallow study. Hospitalist Physical - Physical exam Narrative exam: GENERAL: well-developed male lying on bed appeared to be in no discomfort. HEENT: Normocephalic. Atraumatic. No conjunctival congestion or icterus. Patient appears to be aphasic. NECK: Supple. Trachea midline. CHEST/LUNGS: Clear to auscultated bilaterally, breathing nonlabored. No wheezes crackles or rhonchi. HEART/CARDIOVASCULAR: Regular in rate and rhythm. S1 and S2 positive. ABDOMEN: Abdomen is soft, nontender. Patient has normal bowel sounds. SKIN: There is no rash. Warm and dry. NEURO: Follows command, no focal deficit. MUSCULOSKELETAL: No joint effusion or tenderness. EXTRIMITY: Right upper extremity edema swelling and erythema covered with wound care dressing. PSYCH: He does not have any anxiety or depression. - Constitutional Vitals: Temp Pulse Resp BP Pulse Ox 98.3 F 74 18 178/82 92 08/06/16 13:55 08/06/16 13:55 08/06/16 13:55 08/06/16 13:55 08/06/16 13:55 General appearance: Present: no acute distress Results - Labs CBC & Chem 7: 08/06/16 09:30 08/06/16 09:30 Labs: Laboratory Last Values WBC 21.1 K/mm3 (4.5-11.0) H 08/06/16 09:30 RBC 4.24 M/mm3 (3.65-5.03) 08/06/16 09:30 Hgb 12.5 gm/dl (11.8-15.2) 08/06/16 09:30 Hct 38.3 % (35.5-45.6) 08/06/16 09:30 MCV 90 fl (84-94) 08/06/16 09:30 MCH 30 pg (28-32) 08/06/16 09:30 MCHC 33 % (32-34) 08/06/16 09:30 RDW 14.6 % (13.2-15.2) 08/06/16 09:30 Plt Count 303 K/mm3 (140-440) 08/06/16 09:30 Lymph % (Auto) 5.4 % (13.4-35.0) L 07/29/16 22:15 [place] % (Auto) 4.6 % (0.0-7.3) 07/29/16 22:15 Eos % (Auto) 0.0 % (0.0-4.3) 07/29/16 22:15 Baso % (Auto) 0.1 % (0.0-1.8) 07/29/16 22:15 Lymph # 1.0 K/mm3 (1.2-5.4) L 07/29/16 22:15 [place] # 0.9 K/mm3 (0.0-0.8) H 07/29/16 22:15 Eos # 0.0 K/mm3 (0.0-0.4) 07/29/16 22:15 Baso # 0.0 K/mm3 (0.0-0.1) 07/29/16 22:15 Add Manual Diff Complete 08/05/16 06:00 Total Counted 100 08/05/16 06:00 Seg Neutrophils % Modern Dancer 08/03/16 05:30 Seg Neuts % (Manual) 56.0 % (40.0-70.0) 08/04/16 04:09 Band Neutrophils % 0 % 08/05/16 06:00 Lymphocytes % (Manual) 4.0 % (13.4-35.0) L 08/05/16 06:00 Reactive Lymphs % (Man) 0 % 08/05/16 06:00 Monocytes % (Manual) 0 % (0.0-7.3) 08/05/16 06:00 Eosinophils % (Manual) 0 % (0.0-4.3) 08/05/16 06:00 Basophils % (Manual) 1.0 % (0.0-1.8) 08/05/16 06:00 Metamyelocytes % 0 % 08/05/16 06:00 Myelocytes % 0 % 08/05/16 06:00 Promyelocytes % 0 % 08/05/16 06:00 Blast Cells % 0 % 08/05/16 06:00 Nucleated RBC % Not Reportable 08/05/16 06:00 Seg Neutrophils # 17.5 K/mm3 (1.8-7.7) H 07/29/16 22:15 Seg Neutrophils # Man 20.1 K/mm3 (1.8-7.7) H 08/05/16 06:00 Band Neutrophils # 0.0 K/mm3 08/05/16 06:00 Lymphocytes # (Manual) 0.8 K/mm3 (1.2-5.4) L 08/05/16 06:00 Abs React Lymphs (Man) 0.0 K/mm3 08/05/16 06:00 Monocytes # (Manual) 0.0 K/mm3 (0.0-0.8) 08/05/16 06:00 Eosinophils # (Manual) 0.0 K/mm3 (0.0-0.4) 08/05/16 06:00 Basophils # (Manual) 0.2 K/mm3 (0.0-0.1) H 08/05/16 06:00 Metamyelocytes # 0.0 K/mm3 08/05/16 06:00 Myelocytes # 0.0 K/mm3 08/05/16 06:00 Promyelocytes # 0.0 K/mm3 08/05/16 06:00 Blast Cells # 0.0 K/mm3 08/05/16 06:00 WBC Morphology Not Reportable 08/05/16 06:00 Hypersegmented Neuts Not Reportable 08/05/16 06:00 Hyposegmented Neuts Not Reportable 08/05/16 06:00 Hypogranular Neuts Not Reportable 08/05/16 06:00 Smudge Cells Not Reportable 08/05/16 06:00 Toxic Granulation Not Reportable 08/05/16 06:00 Toxic Vacuolation Not Reportable 08/05/16 06:00 Dohle Bodies Not Reportable 08/05/16 06:00 Pelger-Huet Anomaly Not Reportable 08/05/16 06:00 Arlene Rods Not Reportable 08/05/16 06:00 Platelet Estimate Appears normal 08/05/16 06:00 Clumped Platelets Rare 08/05/16 06:00 Plt Clumps, EDTA Not Reportable 08/05/16 06:00 Large Platelets Not Reportable 08/05/16 06:00 Giant Platelets Rare 08/05/16 06:00 Platelet Satelliting Not Reportable 08/05/16 06:00 Plt Morphology Comment Not Reportable 08/05/16 06:00 RBC Morphology Not Reportable 08/05/16 06:00 Dimorphic RBCs Not Reportable 08/05/16 06:00 Polychromasia 1+ 08/05/16 06:00 Hypochromasia Not Reportable 08/05/16 06:00 Poikilocytosis Not Reportable 08/05/16 06:00 Anisocytosis 1+ 08/05/16 06:00 Microcytosis Not Reportable 08/05/16 06:00 Macrocytosis Not Reportable 08/05/16 06:00 Spherocytes Not Reportable 08/05/16 06:00 Pappenheimer Bodies Not Reportable 08/05/16 06:00 Sickle Cells Not Reportable 08/05/16 06:00 Target Cells Not Reportable 08/05/16 06:00 Tear Drop Cells Not Reportable 08/05/16 06:00 Ovalocytes Few 08/05/16 06:00 Helmet Cells Not Reportable 08/05/16 06:00 Brown-[place]end[place] Bodies Not Reportable 08/05/16 06:00 [place] Rings Not Reportable 08/05/16 06:00 [place] Cells Not Reportable 08/05/16 06:00 Bite Cells Not Reportable 08/05/16 06:00 Crenated Cell Not Reportable 08/05/16 06:00 Elliptocytes Few 08/05/16 06:00 Acanthocytes (Spur) Not Reportable 08/05/16 06:00 Rouleaux Not Reportable 08/05/16 06:00 Hemoglobin C Crystals Not Reportable 08/05/16 06:00 Schistocytes Not Reportable 08/05/16 06:00 Malaria parasites Not Reportable 08/05/16 06:00 Lorenzo Bodies Not Reportable 08/05/16 06:00 Hem Pathologist Commnt No 08/05/16 06:00 PT 22.5 Sec. (12.2-14.9) H 07/29/16 22:55 INR 1.98 (0.87-1.13) H 07/29/16 22:55 VBG pH 7.405 (7.320-7.420) 07/29/16 22:55 Sodium 143 mmol/L (137-145) 08/05/16 06:00 Potassium 3.5 mmol/L (3.6-5.0) L 08/05/16 06:00 Chloride 106.0 mmol/L (98-107) 08/05/16 06:00 Carbon Dioxide 23 mmol/L (22-30) 08/06/16 09:30 Anion Gap 18 mmol/L 08/05/16 06:00 BUN 15 mg/dL (9-20) 08/06/16 09:30 Creatinine 0.5 mg/dL (0.8-1.5) L 08/06/16 09:30 Estimated GFR > 60 ml/min 08/06/16 09:30 BUN/Creatinine Ratio 30.00 % 08/06/16 09:30 Glucose 98 mg/dL (75-100) 08/06/16 09:30 Lactic Acid 3.0 mmol/L (0.7-2.0) H* 07/30/16 01:18 Calcium 7.2 mg/dL (8.4-10.2) L 08/06/16 09:30 Magnesium 2.0 mg/dL (1.7-2.3) 08/03/16 05:30 Total Bilirubin 0.6 mg/dL (0.1-1.2) 08/05/16 06:00 AST 26 units/L (5-40) 08/05/16 06:00 ALT 19 units/L (7-56) 08/05/16 06:00 Alkaline Phosphatase 98 units/L (35-129) 08/05/16 06:00 Total Creatine Kinase 313 units/L (55-170) H 08/01/16 05:19 Total Protein 4.7 g/dL (6.3-8.2) L 08/05/16 06:00 Albumin 1.8 g/dL (3.9-5) L 08/05/16 06:00 Albumin/Globulin Ratio 0.6 % 08/05/16 06:00 Urine Color Lizy (Yellow) 07/30/16 03:29 Urine Turbidity Clear (Clear) 07/30/16 03:29 Urine pH 5.0 (5.0-7.0) 07/30/16 03:29 Ur Specific [place] 1.025 (1.003-1.030) 07/30/16 03:29 Urine Protein 30 mg/dl mg/dL (Negative) 07/30/16 03:29 Urine Glucose (UA) Neg mg/dL (Negative) 07/30/16 03:29 Urine Ketones Neg mg/dL (Negative) 07/30/16 03:29 Urine Blood Mod (Negative) 07/30/16 03:29 Urine Nitrite Neg (Negative) 07/30/16 03:29 Urine Bilirubin Neg (Negative) 07/30/16 03:29 Urine Urobilinogen 2.0 mg/dL (<2.0) 07/30/16 03:29 Ur Leukocyte Esterase Neg (Negative) 07/30/16 03:29 Urine WBC (Auto) 1.0 /HPF (0.0-6.0) 07/30/16 03:29 Urine RBC (Auto) 19.0 /HPF (0.0-6.0) 07/30/16 03:29 U Epithel Cells (Auto) < 1.0 /HPF (0-13.0) 07/30/16 03:29 Amorphous Crystals 1+ 07/30/16 03:29 Hyaline Casts 1 /LPF 07/30/16 03:29 Urine Mucus Few /HPF 07/30/16 03:29
[2016-08-07] MEDS: LOPRESSOR IV SCH ×5 (00:45→23:26)
[2016-08-07] MEDS: LOVENOX SUB-Q SCH ×2 (06:38→18:37)
[2016-08-07] MEDS: PROTONIX IV SCH ×2 (09:03→21:50)
[2016-08-07] MEDS: ROCEPHIN/NS 1 GM/50 ML 50 ML IV SCH (09:03)
[2016-08-07] MEDS: LANOXIN IV SCH (09:04)
[2016-08-07] MEDS: ASPIRIN PO SCH (09:04)
[2016-08-07] MEDS: NACL 0.45% 1000 ML 1,000 ML IV SCH (09:04)
--- NOTE | 2016-08-07 15:44 | Progress Note ---
Assessment and Plan Assessment and plan: Sepsis with septic shock due to right upper extremity cellulitis and a group A strep bacteremia * weaned off from pressor. Continue Rocephin * Monitor WBC count, patient continued to have persistent leukocytosis * We'll consult ID New onset A. fib with RVR * Patient was Was on Diltiazem on admission and required an amiodarone drip * Receiving iv labetalol and digoxin for rate control now as patient nothing by mouth * Cardiology recommended anticoagulation with Pradaxa, which his not getting because of NPO status * We will bridge him with therapeutic dose of Lovenox, until he Can tolerate by mouth Acute renal failure * Likely secondary to vasomotor nephropathy/rhabdomyolysis * Resolved with IV fluids Hypokalemia * Status post aggressive IV replacement Rhabdomyolysis * CPK trended down with IV fluids Acute metabolic/toxic encephalopathy * Treating underlying conditions (sepsis and dehydration), much improved today * MRI of the brain still pending Left upper extremity edema/warmth * Status post PICC placement 07/31 * Doppler obtained and negative for DVT/SVT CAD Status post CABG * Beta yary and LASHONDA inhibitor were on hold due to hypotension/acute renal failure * We will resume when he can tolerate by mouth Severe dilated cardiomyopathy * Echo showing dilated cardiomyopathy with EF 20-25%, abnormal diastolic function * On beta yary IV for rate control also * Plan to start LASHONDA inhibitor when able to take by mouth * Cardiology following Hyperlipidemia * Continue statin if cleared by swallow study (simvastatin changed to atorvastatin by hims coder due to interaction with Pradaxa) Psychiatric disorder/dementia * On Zyprexa, Supportive care DVT prophylaxis * switch to Lovenox treatment dose, as he did not pass the swallow study Dysphagia * Did not pass swallow study, 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 MRI of the brain for possible acute CVA still pending * Discussed the option with the patient and his family, they all want to have a repeat swallow study * Ordered a barium swallow to test for risk for aspiration History Interval history: Patient seen and examined. Medical records and medication list reviewed. No acute event overnight noted by the RN. Patient is getting barium swallow study today. Hospitalist Physical - Physical exam Narrative exam: GENERAL: well-developed male lying on bed appeared to be in no discomfort. HEENT: Normocephalic. Atraumatic. No conjunctival congestion or icterus. Patient appears to be aphasic. NECK: Supple. Trachea midline. CHEST/LUNGS: Clear to auscultated bilaterally, breathing nonlabored. No wheezes crackles or rhonchi. HEART/CARDIOVASCULAR: Regular in rate and rhythm. S1 and S2 positive. ABDOMEN: Abdomen is soft, nontender. Patient has normal bowel sounds. SKIN: There is no rash. Warm and dry. NEURO: Follows command, no focal deficit. MUSCULOSKELETAL: No joint effusion or tenderness. EXTRIMITY: Right upper extremity edema swelling and erythema covered with wound care dressing. PSYCH: He does not have any anxiety or depression. - Constitutional Vitals: Temp Pulse Resp BP Pulse Ox 98.1 F 76 20 163/70 95 08/07/16 15:08 08/07/16 15:08 08/07/16 15:08 08/07/16 15:08 08/07/16 15:08 General appearance: Present: no acute distress Results - Labs CBC & Chem 7: 08/06/16 09:30 08/06/16 09:30 Labs: Laboratory Last Values WBC 21.1 K/mm3 (4.5-11.0) H 08/06/16 09:30 RBC 4.24 M/mm3 (3.65-5.03) 08/06/16 09:30 Hgb 12.5 gm/dl (11.8-15.2) 08/06/16 09:30 Hct 38.3 % (35.5-45.6) 08/06/16 09:30 MCV 90 fl (84-94) 08/06/16 09:30 MCH 30 pg (28-32) 08/06/16 09:30 MCHC 33 % (32-34) 08/06/16 09:30 RDW 14.6 % (13.2-15.2) 08/06/16 09:30 Plt Count 303 K/mm3 (140-440) 08/06/16 09:30 Lymph % (Auto) 5.4 % (13.4-35.0) L 07/29/16 22:15 [place] % (Auto) 4.6 % (0.0-7.3) 07/29/16 22:15 Eos % (Auto) 0.0 % (0.0-4.3) 07/29/16 22:15 Baso % (Auto) 0.1 % (0.0-1.8) 07/29/16 22:15 Lymph # 1.0 K/mm3 (1.2-5.4) L 07/29/16 22:15 [place] # 0.9 K/mm3 (0.0-0.8) H 07/29/16 22:15 Eos # 0.0 K/mm3 (0.0-0.4) 07/29/16 22:15 Baso # 0.0 K/mm3 (0.0-0.1) 07/29/16 22:15 Add Manual Diff Complete 08/05/16 06:00 Total Counted 100 08/05/16 06:00 Seg Neutrophils % Can Coverer 08/03/16 05:30 Seg Neuts % (Manual) 56.0 % (40.0-70.0) 08/04/16 04:09 Band Neutrophils % 0 % 08/05/16 06:00 Lymphocytes % (Manual) 4.0 % (13.4-35.0) L 08/05/16 06:00 Reactive Lymphs % (Man) 0 % 08/05/16 06:00 Monocytes % (Manual) 0 % (0.0-7.3) 08/05/16 06:00 Eosinophils % (Manual) 0 % (0.0-4.3) 08/05/16 06:00 Basophils % (Manual) 1.0 % (0.0-1.8) 08/05/16 06:00 Metamyelocytes % 0 % 08/05/16 06:00 Myelocytes % 0 % 08/05/16 06:00 Promyelocytes % 0 % 08/05/16 06:00 Blast Cells % 0 % 08/05/16 06:00 Nucleated RBC % Not Reportable 08/05/16 06:00 Seg Neutrophils # 17.5 K/mm3 (1.8-7.7) H 07/29/16 22:15 Seg Neutrophils # Man 20.1 K/mm3 (1.8-7.7) H 08/05/16 06:00 Band Neutrophils # 0.0 K/mm3 08/05/16 06:00 Lymphocytes # (Manual) 0.8 K/mm3 (1.2-5.4) L 08/05/16 06:00 Abs React Lymphs (Man) 0.0 K/mm3 08/05/16 06:00 Monocytes # (Manual) 0.0 K/mm3 (0.0-0.8) 08/05/16 06:00 Eosinophils # (Manual) 0.0 K/mm3 (0.0-0.4) 08/05/16 06:00 Basophils # (Manual) 0.2 K/mm3 (0.0-0.1) H 08/05/16 06:00 Metamyelocytes # 0.0 K/mm3 08/05/16 06:00 Myelocytes # 0.0 K/mm3 08/05/16 06:00 Promyelocytes # 0.0 K/mm3 08/05/16 06:00 Blast Cells # 0.0 K/mm3 08/05/16 06:00 WBC Morphology Not Reportable 08/05/16 06:00 Hypersegmented Neuts Not Reportable 08/05/16 06:00 Hyposegmented Neuts Not Reportable 08/05/16 06:00 Hypogranular Neuts Not Reportable 08/05/16 06:00 Smudge Cells Not Reportable 08/05/16 06:00 Toxic Granulation Not Reportable 08/05/16 06:00 Toxic Vacuolation Not Reportable 08/05/16 06:00 Dohle Bodies Not Reportable 08/05/16 06:00 Pelger-Huet Anomaly Not Reportable 08/05/16 06:00 Arlene Rods Not Reportable 08/05/16 06:00 Platelet Estimate Appears normal 08/05/16 06:00 Clumped Platelets Rare 08/05/16 06:00 Plt Clumps, EDTA Not Reportable 08/05/16 06:00 Large Platelets Not Reportable 08/05/16 06:00 Giant Platelets Rare 08/05/16 06:00 Platelet Satelliting Not Reportable 08/05/16 06:00 Plt Morphology Comment Not Reportable 08/05/16 06:00 RBC Morphology Not Reportable 08/05/16 06:00 Dimorphic RBCs Not Reportable 08/05/16 06:00 Polychromasia 1+ 08/05/16 06:00 Hypochromasia Not Reportable 08/05/16 06:00 Poikilocytosis Not Reportable 08/05/16 06:00 Anisocytosis 1+ 08/05/16 06:00 Microcytosis Not Reportable 08/05/16 06:00 Macrocytosis Not Reportable 08/05/16 06:00 Spherocytes Not Reportable 08/05/16 06:00 Pappenheimer Bodies Not Reportable 08/05/16 06:00 Sickle Cells Not Reportable 08/05/16 06:00 Target Cells Not Reportable 08/05/16 06:00 Tear Drop Cells Not Reportable 08/05/16 06:00 Ovalocytes Few 08/05/16 06:00 Helmet Cells Not Reportable 08/05/16 06:00 Brown-Roxana Bodies Not Reportable 08/05/16 06:00 [place] Rings Not Reportable 08/05/16 06:00 [place] Cells Not Reportable 08/05/16 06:00 Bite Cells Not Reportable 08/05/16 06:00 Crenated Cell Not Reportable 08/05/16 06:00 Elliptocytes Few 08/05/16 06:00 Acanthocytes (Spur) Not Reportable 08/05/16 06:00 Rouleaux Not Reportable 08/05/16 06:00 Hemoglobin C Crystals Not Reportable 08/05/16 06:00 Schistocytes Not Reportable 08/05/16 06:00 Malaria parasites Not Reportable 08/05/16 06:00 Lorenzo Bodies Not Reportable 08/05/16 06:00 Hem Pathologist Commnt No 08/05/16 06:00 PT 22.5 Sec. (12.2-14.9) H 07/29/16 22:55 INR 1.98 (0.87-1.13) H 07/29/16 22:55 VBG pH 7.405 (7.320-7.420) 07/29/16 22:55 Sodium 143 mmol/L (137-145) 08/05/16 06:00 Potassium 3.5 mmol/L (3.6-5.0) L 08/05/16 06:00 Chloride 106.0 mmol/L (98-107) 08/05/16 06:00 Carbon Dioxide 23 mmol/L (22-30) 08/06/16 09:30 Anion Gap 18 mmol/L 08/05/16 06:00 BUN 15 mg/dL (9-20) 08/06/16 09:30 Creatinine 0.5 mg/dL (0.8-1.5) L 08/06/16 09:30 Estimated GFR > 60 ml/min 08/06/16 09:30 BUN/Creatinine Ratio 30.00 % 08/06/16 09:30 Glucose 98 mg/dL (75-100) 08/06/16 09:30 Lactic Acid 3.0 mmol/L (0.7-2.0) H* 07/30/16 01:18 Calcium 7.2 mg/dL (8.4-10.2) L 08/06/16 09:30 Magnesium 2.0 mg/dL (1.7-2.3) 08/03/16 05:30 Total Bilirubin 0.6 mg/dL (0.1-1.2) 08/05/16 06:00 AST 26 units/L (5-40) 08/05/16 06:00 ALT 19 units/L (7-56) 08/05/16 06:00 Alkaline Phosphatase 98 units/L (35-129) 08/05/16 06:00 Total Creatine Kinase 313 units/L (55-170) H 08/01/16 05:19 Total Protein 4.7 g/dL (6.3-8.2) L 08/05/16 06:00 Albumin 1.8 g/dL (3.9-5) L 08/05/16 06:00 Albumin/Globulin Ratio 0.6 % 08/05/16 06:00 Urine Color Lizy (Yellow) 07/30/16 03:29 Urine Turbidity Clear (Clear) 07/30/16 03:29 Urine pH 5.0 (5.0-7.0) 07/30/16 03:29 Ur Specific [place] 1.025 (1.003-1.030) 07/30/16 03:29 Urine Protein 30 mg/dl mg/dL (Negative) 07/30/16 03:29 Urine Glucose (UA) Neg mg/dL (Negative) 07/30/16 03:29 Urine Ketones Neg mg/dL (Negative) 07/30/16 03:29 Urine Blood Mod (Negative) 07/30/16 03:29 Urine Nitrite Neg (Negative) 07/30/16 03:29 Urine Bilirubin Neg (Negative) 07/30/16 03:29 Urine Urobilinogen 2.0 mg/dL (<2.0) 07/30/16 03:29 Ur Leukocyte Esterase Neg (Negative) 07/30/16 03:29 Urine WBC (Auto) 1.0 /HPF (0.0-6.0) 07/30/16 03:29 Urine RBC (Auto) 19.0 /HPF (0.0-6.0) 07/30/16 03:29 U Epithel Cells (Auto) < 1.0 /HPF (0-13.0) 07/30/16 03:29 Amorphous Crystals 1+ 07/30/16 03:29 Hyaline Casts 1 /LPF 07/30/16 03:29 Urine Mucus Few /HPF 07/30/16 03:29
--- NOTE | 2016-08-07 16:14 | Consultation ---
History of Present Illness - Reason for Consult Consult date: 08/07/16 RUE cellulitis, Streptococcal bacteremia, persistent leukocytosis Requesting physician: STU WILLIAM - History of Present Illness Seng Lemus is an 85-year-old male with dementia, hypertension, coronary artery disease (status post CABG) who was admitted to [facility] on 07/29 with altered mental status, hypotension and right upper extremity erythema and swelling. Admitting blood cultures grew Group A Streptococcus. His right upper extremity has not been improving clinically and he has a persistent leukocytosis despite antibiotic therapy with ceftriaxone. Patient cannot really furnish a meaningful history with his dementia and history is thus obtained from thorough review of his medical records. Review of systems: Not obtainable. He does state that he is not having any right upper extremity pain. Past History Past Medical History: CAD, hyperlipidemia Past Surgical History: CABG Social history: Family history: hypertension Medications and Allergies Allergies Allergy/AdvReac Type Severity Reaction Status Date / Time No Known Allergies Allergy Verified 07/29/16 22:15 Home Medications Medication Instructions Recorded Confirmed Last Taken Type Acetaminophen 2 tab PO Q4H PRN 07/30/16 07/30/16 Unknown History Albuterol Sulfate [Ventolin HFA] 2 puff IH Q6H PRN 07/30/16 07/30/16 Unknown History Dabigatran [Pradaxa] 150 mg PO BID 07/30/16 07/30/16 Unknown History Furosemide [Lasix] 20 mg PO QDAY 07/30/16 07/30/16 Unknown History Lisinopril [Zestril] 5 mg PO QDAY 07/30/16 07/30/16 Unknown History Mag Hydrox/Al Hydrox/Simeth 30 ml PO Q2H PRN 07/30/16 07/30/16 Unknown History [Maalox Advanced Suspension] Magnesium Hydroxide [Milk of 30 ml PO Q12H PRN 07/30/16 07/30/16 Unknown History Magnesia] Metoprolol Xl [Metoprolol 25 mg PO QDAY 07/30/16 07/30/16 Unknown History SUCCINATE ER TAB] OLANzapine [ZyPREXA] 5 mg PO BID 07/30/16 07/30/16 Unknown History Pantoprazole [Protonix] 40 mg PO QDAY 07/30/16 07/30/16 Unknown History Simvastatin [Zocor TAB] 20 mg PO QHS 07/30/16 07/30/16 Unknown History chlorproMAZINE [Thorazine INJ] 25 mg IM Q4H PRN 07/30/16 07/30/16 Unknown History Active Meds: Active Medications Acetaminophen (Tylenol) 650 mg PO Q4H PRN PRN Reason: Headache Last Admin: 07/31/16 21:03 Dose: 650 mg Al Hydrox/Mg Hydrox/Simethicone (Alum-Mag Hydrox-Simeth [phone]/5ml) 30 ml PO Q2H PRN PRN Reason: Indigestion Albuterol (Proventil) 2.5 mg IH Q6HRT PRN PRN Reason: Shortness Of Breath Lipase/Protease/Amylase (Pancreizzy Gayle 10,500 Unit) 1 each FEEDTUBE PRN PRN PRN Reason: For Clogged Feeding Tube Aspirin (Aspirin) 325 mg PO QDAY [facility] Last Admin: 08/07/16 09:04 Dose: Not Given Atorvastatin Calcium (Lipitor) 20 mg PO QHS [facility] Last Admin: 08/06/16 22:30 Dose: Not Given Chlorpromazine HCl (Thorazine) 25 mg IM Q4H PRN PRN Reason: Agitation Digoxin (Lanoxin) 0.125 mg IV QDAY [facility] Last Admin: 08/07/16 09:04 Dose: 0.125 mg Enoxaparin Sodium (Lovenox) 80 mg SUB-Q Q12H [facility] Last Admin: 08/07/16 06:38 Dose: 80 mg Ceftriaxone Sodium (Rocephin/Ns 1 Gm/50 Ml) 50 mls @ 100 mls/hr IV Q24HR [facility] Last Admin: 08/07/16 09:03 Dose: 100 mls/hr Dextrose/Sodium Chloride (D5ns 0.2%) 1,000 mls @ 75 mls/hr IV DIRECT [facility] Magnesium Hydroxide (Milk Of Magnesia) 30 ml PO Q12H PRN PRN Reason: Constipation Metoprolol Tartrate (Lopressor) 5 mg IV Q6HR [facility] Last Admin: 08/07/16 13:32 Dose: 5 mg Morphine Sulfate (Morphine) 2 mg IV Q4H PRN PRN Reason: Pain , Severe (7-10) Last Admin: 08/03/16 05:18 Dose: 2 mg Olanzapine (Zyprexa) 5 mg PO BID [facility] Last Admin: 08/07/16 09:04 Dose: Not Given Pantoprazole Sodium (Protonix) 40 mg IV BID [facility] Last Admin: 08/07/16 09:03 Dose: 40 mg Simple Syrup (Simple Syrup) 15 ml FEEDTUBE PRN PRN PRN Reason: Hypoglycemia Simple Syrup (Simple Syrup) 30 ml FEEDTUBE PRN PRN PRN Reason: Hypoglycemia Sodium Bicarbonate (Sodium Bicarbonate) 325 mg FEEDTUBE PRN PRN PRN Reason: For Clogged Feeding Tube Physical Examination - Physical Exam Narrative exam: GENERAL: Well-developed, well-nourished appearing male who is alert and in no acute distress. He is oriented to name and knows that he is in a hospital and also knows the name of his niece who apparently is his legal guardian. HEAD: Normocephalic. No lesions seen. EYES: Pupils are equal reactive to light and accommodation. There is no scleral icterus. Optic fundi are not examined. EARS: External ears are normal. THROAT: Oropharynx is normal with no evidence of oral candidiasis or pharyngitis. Poor dentition. NECK: Supple. No enlargement of the thyroid gland. No significant cervical lymphadenopathy. No jugular venous distention at 30. LUNGS: Clear with no adventitious sounds. HEART: Regular rate. S1 and S2 are normal. There are no murmurs, gallops, clicks or rubs heard. ABDOMEN: Soft and nontender. Liver and spleen are not palpably enlarged or tender. No palpable masses. Bowel sounds are normoactive. : Normal external male. Larson catheter in place. EXTREMITIES: Marked right upper extremity erythema, warmth and mild tenderness to palpation. There is no definite fluctuance although it appears as though there may be some fluid in the olecranon bursa. There is no evidence of septic arthritis. NEUROLOGIC: No focal findings. Demented as per above. - Constitutional Vitals: Vital Signs Temp Pulse Resp BP Pulse Ox 98.1 F 76 20 163/70 95 08/07/16 15:08 08/07/16 15:08 08/07/16 15:08 08/07/16 15:08 08/07/16 15:08 Temperature -Last 24 Hours Temperature 98.1 F Temperature 98.2 F Temperature 98.3 F Temperature 97.6 F Temperature 97.8 F Temperature 98.1 F Temperature 98.3 F Results - Labs CBC & Chem 7: 08/06/16 09:30 08/06/16 09:30 Assessment and Plan Current antibiotics: Ceftriaxone 1 g IV q24h 07/31 --> Previous antibiotics: Zosyn 4.5 g IV q8h 07/29-07/31 Vancomycin 07/29-07/30 ASSESSMENT: Seng Lemus is an 85-year-old male with dementia, hypertension, coronary artery disease (status post CABG) who was admitted to [facility] on 07/29 with altered mental status, hypotension and right upper extremity erythema and swelling. Admitting blood cultures grew Group A Streptococcus. His right upper extremity has not been improving clinically and he has a persistent leukocytosis despite antibiotic therapy with ceftriaxone Problem list: 1. Extensive right upper extremity cellulitis -Secondary to group A Streptococcus -Is not improving clinically on appropriate antibiotics -Suspect septic olecranon bursitis -Associated bacteremia 2. Group A Streptococcal bacteremia -Secondary to #1 -09/26 bottles + 07/29/16 -08/03 blood cultures with NGTD 3. Leukocytosis -Secondary to #1 and #2 -Not improving likely because of undrained septic olecranon bursitis 4. Alzheimer's dementia 5. Hypokalemia -Improving Plan: 1. Continue ceftriaxone 2. Suggest orthopedic evaluation as patient may require drainage of his olecranon bursa to control the infection 3. Continued close clinical monitoring 4. Follow WBC Thank you for this consultation. We will follow with you. Tra Crump MD [facility] Office: [phone]
[2016-08-07] MEDS: D5NS 0.2% 1,000 ML IV SCH (21:51)
[2016-08-08] MEDS: LOPRESSOR IV SCH ×3 (06:24→18:35)
[2016-08-08] MEDS: LOVENOX SUB-Q SCH (06:25)
[2016-08-08] MEDS: ROCEPHIN/NS 1 GM/50 ML 50 ML IV SCH (09:09)
[2016-08-08] MEDS: LANOXIN IV SCH (09:10)
[2016-08-08] MEDS: PROTONIX IV SCH ×2 (09:10→21:22)
[2016-08-08] MEDS: ASPIRIN PO SCH (09:11)
--- NOTE | 2016-08-08 11:29 | Fluoroscopy Report ---
MODIFIED BARIUM SWALLOW: 08/08/16 10:30:00 CLINICAL: Aspiration. FINDINGS: The patient ingested barium impregnated substances of varying consistencies and swallowing was observed fluoroscopically. For more detail, please refer to the speech pathologist's report.
[2016-08-08] MEDS: D5NS 0.2% 1,000 ML IV SCH (13:46)
[2016-08-08 14:08] LABS: Hematocrit 37.5 % (35.5-45.6); Hemoglobin 12.7 gm/dl (11.8-15.2); Mean Corpuscular HGB Conc 34 % (32-34); Mean Corpuscular Hemoglobin 30 pg (28-32); Mean Corpuscular Volume 90 fl (84-94); Platelet Count 302 K/mm3 (140-440); Red Blood Count 4.19 M/mm3 (3.65-5.03); Red Cell Distribution Width 14.7 % (13.2-15.2)
[2016-08-08 14:28] LABS: Blood Urea Nitrogen 8 mg/dL (9-20); Calcium 7.3 mg/dL (8.4-10.2); Carbon Dioxide 27 mmol/L (22-30); Chloride 104.9 mmol/L (98-107); Glucose 114 mg/dL (75-100); Potassium 3.3 mmol/L (3.6-5.0); Sodium 142 mmol/L (137-145)
[2016-08-08 14:35] LABS: Anion Gap 13 mmol/L
--- NOTE | 2016-08-08 15:21 | Progress Note ---
Assessment and Plan Assessment and plan: Sepsis with septic shock due to right upper extremity cellulitis and a group A strep bacteremia * weaned off from pressor. Continue Rocephin * Monitor WBC count, patient continued to have persistent leukocytosis * ID following, recommended orthopedics eval New onset A. fib with RVR * Patient was Was on Diltiazem on admission and required an amiodarone drip * Receiving iv labetalol and digoxin for rate control now as patient nothing by mouth * Cardiology recommended anticoagulation with Pradaxa, which his not getting because of NPO status * We will bridge him with therapeutic dose of Lovenox, until he Can tolerate by mouth Acute renal failure * Likely secondary to vasomotor nephropathy/rhabdomyolysis * Resolved with IV fluids Hypokalemia * Status post aggressive IV replacement Rhabdomyolysis * CPK trended down with IV fluids Acute metabolic/toxic encephalopathy * Treating underlying conditions (sepsis and dehydration), much improved today * MRI of the brain still pending Left upper extremity edema/warmth * Status post PICC placement 07/31 * Doppler obtained and negative for DVT/SVT CAD Status post CABG * Beta yary and LASHONDA inhibitor were on hold due to hypotension/acute renal failure * We will resume when he can tolerate by mouth Severe dilated cardiomyopathy * Echo showing dilated cardiomyopathy with EF 20-25%, abnormal diastolic function * On beta yary IV for rate control also * Plan to start LASHONDA inhibitor when able to take by mouth * Cardiology following Hyperlipidemia * Continue statin if cleared by swallow study (simvastatin changed to atorvastatin by courtroom clerk due to interaction with Pradaxa) Psychiatric disorder/dementia * On Zyprexa, Supportive care DVT prophylaxis * switch to Lovenox treatment dose, as he did not pass the swallow study Dysphagia * Did not pass swallow study, 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 MRI of the brain for possible acute CVA still pending * consult GI for PEG placement * cont d5w for now at low dose History Interval history: Patient seen and examined. Medical records and medication list reviewed. No acute event overnight noted by the RN. Patient had barium swallow study yesterday and speech recommended PEG placement. Hospitalist Physical - Physical exam Narrative exam: GENERAL: well-developed male lying on bed appeared to be in no discomfort. HEENT: Normocephalic. Atraumatic. No conjunctival congestion or icterus. Patient appears to be aphasic. NECK: Supple. Trachea midline. CHEST/LUNGS: Clear to auscultated bilaterally, breathing nonlabored. No wheezes crackles or rhonchi. HEART/CARDIOVASCULAR: Regular in rate and rhythm. S1 and S2 positive. ABDOMEN: Abdomen is soft, nontender. Patient has normal bowel sounds. SKIN: There is no rash. Warm and dry. NEURO: Follows command, no focal deficit. MUSCULOSKELETAL: No joint effusion or tenderness. EXTRIMITY: Right upper extremity edema swelling and erythema covered with wound care dressing. PSYCH: He does not have any anxiety or depression. - Constitutional Vitals: Temp Pulse Resp BP Pulse Ox 97.6 F 80 20 143/60 95 08/08/16 13:24 08/08/16 13:47 08/08/16 13:24 08/08/16 13:24 08/08/16 13:24 General appearance: Present: no acute distress Results - Labs CBC & Chem 7: 08/08/16 13:50 08/08/16 13:50 Labs: Laboratory Last Values WBC 13.0 K/mm3 (4.5-11.0) H 08/08/16 13:50 RBC 4.19 M/mm3 (3.65-5.03) 08/08/16 13:50 Hgb 12.7 gm/dl (11.8-15.2) 08/08/16 13:50 Hct 37.5 % (35.5-45.6) 08/08/16 13:50 MCV 90 fl (84-94) 08/08/16 13:50 MCH 30 pg (28-32) 08/08/16 13:50 MCHC 34 % (32-34) 08/08/16 13:50 RDW 14.7 % (13.2-15.2) 08/08/16 13:50 Plt Count 302 K/mm3 (140-440) 08/08/16 13:50 Lymph % (Auto) 5.4 % (13.4-35.0) L 07/29/16 22:15 [place] % (Auto) 4.6 % (0.0-7.3) 07/29/16 22:15 Eos % (Auto) 0.0 % (0.0-4.3) 07/29/16 22:15 Baso % (Auto) 0.1 % (0.0-1.8) 07/29/16 22:15 Lymph # 1.0 K/mm3 (1.2-5.4) L 07/29/16 22:15 [place] # 0.9 K/mm3 (0.0-0.8) H 07/29/16 22:15 Eos # 0.0 K/mm3 (0.0-0.4) 07/29/16 22:15 Baso # 0.0 K/mm3 (0.0-0.1) 07/29/16 22:15 Add Manual Diff Complete 08/05/16 06:00 Total Counted 100 08/05/16 06:00 Seg Neutrophils % Director Of Consulting Services 08/03/16 05:30 Seg Neuts % (Manual) 56.0 % (40.0-70.0) 08/04/16 04:09 Band Neutrophils % 0 % 08/05/16 06:00 Lymphocytes % (Manual) 4.0 % (13.4-35.0) L 08/05/16 06:00 Reactive Lymphs % (Man) 0 % 08/05/16 06:00 Monocytes % (Manual) 0 % (0.0-7.3) 08/05/16 06:00 Eosinophils % (Manual) 0 % (0.0-4.3) 08/05/16 06:00 Basophils % (Manual) 1.0 % (0.0-1.8) 08/05/16 06:00 Metamyelocytes % 0 % 08/05/16 06:00 Myelocytes % 0 % 08/05/16 06:00 Promyelocytes % 0 % 08/05/16 06:00 Blast Cells % 0 % 08/05/16 06:00 Nucleated RBC % Not Reportable 08/05/16 06:00 Seg Neutrophils # 17.5 K/mm3 (1.8-7.7) H 07/29/16 22:15 Seg Neutrophils # Man 20.1 K/mm3 (1.8-7.7) H 08/05/16 06:00 Band Neutrophils # 0.0 K/mm3 08/05/16 06:00 Lymphocytes # (Manual) 0.8 K/mm3 (1.2-5.4) L 08/05/16 06:00 Abs React Lymphs (Man) 0.0 K/mm3 08/05/16 06:00 Monocytes # (Manual) 0.0 K/mm3 (0.0-0.8) 08/05/16 06:00 Eosinophils # (Manual) 0.0 K/mm3 (0.0-0.4) 08/05/16 06:00 Basophils # (Manual) 0.2 K/mm3 (0.0-0.1) H 08/05/16 06:00 Metamyelocytes # 0.0 K/mm3 08/05/16 06:00 Myelocytes # 0.0 K/mm3 08/05/16 06:00 Promyelocytes # 0.0 K/mm3 08/05/16 06:00 Blast Cells # 0.0 K/mm3 08/05/16 06:00 WBC Morphology Not Reportable 08/05/16 06:00 Hypersegmented Neuts Not Reportable 08/05/16 06:00 Hyposegmented Neuts Not Reportable 08/05/16 06:00 Hypogranular Neuts Not Reportable 08/05/16 06:00 Smudge Cells Not Reportable 08/05/16 06:00 Toxic Granulation Not Reportable 08/05/16 06:00 Toxic Vacuolation Not Reportable 08/05/16 06:00 Dohle Bodies Not Reportable 08/05/16 06:00 Pelger-Huet Anomaly Not Reportable 08/05/16 06:00 Arlene Rods Not Reportable 08/05/16 06:00 Platelet Estimate Appears normal 08/05/16 06:00 Clumped Platelets Rare 08/05/16 06:00 Plt Clumps, EDTA Not Reportable 08/05/16 06:00 Large Platelets Not Reportable 08/05/16 06:00 Giant Platelets Rare 08/05/16 06:00 Platelet Satelliting Not Reportable 08/05/16 06:00 Plt Morphology Comment Not Reportable 08/05/16 06:00 RBC Morphology Not Reportable 08/05/16 06:00 Dimorphic RBCs Not Reportable 08/05/16 06:00 Polychromasia 1+ 08/05/16 06:00 Hypochromasia Not Reportable 08/05/16 06:00 Poikilocytosis Not Reportable 08/05/16 06:00 Anisocytosis 1+ 08/05/16 06:00 Microcytosis Not Reportable 08/05/16 06:00 Macrocytosis Not Reportable 08/05/16 06:00 Spherocytes Not Reportable 08/05/16 06:00 Pappenheimer Bodies Not Reportable 08/05/16 06:00 Sickle Cells Not Reportable 08/05/16 06:00 Target Cells Not Reportable 08/05/16 06:00 Tear Drop Cells Not Reportable 08/05/16 06:00 Ovalocytes Few 08/05/16 06:00 Helmet Cells Not Reportable 08/05/16 06:00 Brown-[place]-Laager Bodies Not Reportable 08/05/16 06:00 [place] Rings Not Reportable 08/05/16 06:00 Arielle Cells Not Reportable 08/05/16 06:00 Bite Cells Not Reportable 08/05/16 06:00 Crenated Cell Not Reportable 08/05/16 06:00 Elliptocytes Few 08/05/16 06:00 Acanthocytes (Spur) Not Reportable 08/05/16 06:00 Rouleaux Not Reportable 08/05/16 06:00 Hemoglobin C Crystals Not Reportable 08/05/16 06:00 Schistocytes Not Reportable 08/05/16 06:00 Malaria parasites Not Reportable 08/05/16 06:00 Lorenzo Bodies Not Reportable 08/05/16 06:00 Hem Pathologist Commnt No 08/05/16 06:00 PT 22.5 Sec. (12.2-14.9) H 07/29/16 22:55 INR 1.98 (0.87-1.13) H 07/29/16 22:55 VBG pH 7.405 (7.320-7.420) 07/29/16 22:55 Sodium 142 mmol/L (137-145) 08/08/16 13:50 Potassium 3.3 mmol/L (3.6-5.0) L 08/08/16 13:50 Chloride 104.9 mmol/L (98-107) 08/08/16 13:50 Carbon Dioxide 27 mmol/L (22-30) 08/08/16 13:50 Anion Gap 13 mmol/L 08/08/16 13:50 BUN 8 mg/dL (9-20) L 08/08/16 13:50 Creatinine 0.5 mg/dL (0.8-1.5) L 08/08/16 13:50 Estimated GFR > 60 ml/min 08/08/16 13:50 BUN/Creatinine Ratio 16.00 % 08/08/16 13:50 Glucose 114 mg/dL (75-100) H 08/08/16 13:50 Lactic Acid 3.0 mmol/L (0.7-2.0) H* 07/30/16 01:18 Calcium 7.3 mg/dL (8.4-10.2) L 08/08/16 13:50 Magnesium 2.0 mg/dL (1.7-2.3) 08/03/16 05:30 Total Bilirubin 0.6 mg/dL (0.1-1.2) 08/05/16 06:00 AST 26 units/L (5-40) 08/05/16 06:00 ALT 19 units/L (7-56) 08/05/16 06:00 Alkaline Phosphatase 98 units/L (35-129) 08/05/16 06:00 Total Creatine Kinase 313 units/L (55-170) H 08/01/16 05:19 Total Protein 4.7 g/dL (6.3-8.2) L 08/05/16 06:00 Albumin 1.8 g/dL (3.9-5) L 08/05/16 06:00 Albumin/Globulin Ratio 0.6 % 08/05/16 06:00 Urine Color Lizy (Yellow) 07/30/16 03:29 Urine Turbidity Clear (Clear) 07/30/16 03:29 Urine pH 5.0 (5.0-7.0) 07/30/16 03:29 Ur Specific Jordan 1.025 (1.003-1.030) 07/30/16 03:29 Urine Protein 30 mg/dl mg/dL (Negative) 07/30/16 03:29 Urine Glucose (UA) Neg mg/dL (Negative) 07/30/16 03:29 Urine Ketones Neg mg/dL (Negative) 07/30/16 03:29 Urine Blood Mod (Negative) 07/30/16 03:29 Urine Nitrite Neg (Negative) 07/30/16 03:29 Urine Bilirubin Neg (Negative) 07/30/16 03:29 Urine Urobilinogen 2.0 mg/dL (<2.0) 07/30/16 03:29 Ur Leukocyte Esterase Neg (Negative) 07/30/16 03:29 Urine WBC (Auto) 1.0 /HPF (0.0-6.0) 07/30/16 03:29 Urine RBC (Auto) 19.0 /HPF (0.0-6.0) 07/30/16 03:29 U Epithel Cells (Auto) < 1.0 /HPF (0-13.0) 07/30/16 03:29 Amorphous Crystals 1+ 07/30/16 03:29 Hyaline Casts 1 /LPF 07/30/16 03:29 Urine Mucus Few /HPF 07/30/16 03:29
--- NOTE | 2016-08-08 17:34 | Progress Note ---
Assessment and Plan Current Antibiotics: ceftriaxone 1 g IV q24h 07/31 --> Previous antibiotics: Zosyn 4.5 g IV q8h 07/29-07/31 Vancomycin 07/29-07/30 ASSESSMENT: Seng Lemus is an 85-year-old male with dementia, hypertension, coronary artery disease (status post CABG) who was admitted to [facility] on 07/29 with altered mental status, hypotension and right upper extremity erythema and swelling. Admitting blood cultures grew Group A Streptococcus. His right upper extremity has not been improving clinically and he has a persistent leukocytosis despite antibiotic therapy with ceftriaxone Problem list: 1. Extensive right upper extremity cellulitis -Secondary to group A Streptococcus -Is not improving clinically on appropriate antibiotics -Suspect septic olecranon bursitis -Associated bacteremia 2. Group A Streptococcal bacteremia -Secondary to #1 -09/26 bottles + 07/29/16 -08/03 blood cultures with NGTD 3. Leukocytosis -Secondary to #1 and #2 -Not improving likely because of undrained septic olecranon bursitis 4. Alzheimer's dementia 5. Hypokalemia -Improving Plan: 1. Continue ceftriaxone 2. Suggest orthopedic evaluation as patient may require drainage of his olecranon bursa to control the infection 3. will add clindamycin for toxin production 4. Follow WBC Subjective Date of service: 08/08/16 Principal diagnosis: Cellulitis, Sepsis Interval history: Patient seen in bed comfortable, he is confused but answered some questions Objective - Constitutional Vitals: Selected Entries 08/08/16 08/08/16 13:24 13:47 Temperature 97.6 F Pulse Rate 80 Pulse Rate [ 76 Right Radial] Respiratory 20 Rate O2 Sat by Pulse 95 Oximetry Blood Pressure 143/60 [Right Calf] Blood Pressure 87 Mean [Right Calf] General appearance: Present: no acute distress, well-nourished - EENT Eyes: PERRL, EOM intact, no scleral icterus, no conjunctival injection ENT: hearing intact, poor dentition - Neck Neck: supple, normal ROM, no enlarged thyroid, no masses or JVD - Respiratory Respiratory effort: normal Respiratory: bilateral: CTA - Cardiovascular Rhythm: regular Heart Sounds: Present: S1 & S2 Extremities: abnormal Extremity abnormal: edema, erythema, tenderness, other (pitting edema, blistering lesion on underside of arm) - Gastrointestinal General gastrointestinal: Present: soft, non-tender, normal bowel sounds - Genitourinary Male genitourinary: deferred - Labs CBC & Chem 7: 08/08/16 13:50 08/08/16 13:50 Labs: Microbiology 07/30/16 00:18 Elbow - Right Wound Culture - Final Beta Hemolytic Strep Group A 07/29/16 22:41 Peripheral/Venous Blood Culture - Final Beta Hemolytic Strep Group A 07/29/16 22:41 Peripheral/Venous Blood Culture - Final Beta Hemolytic Strep Group A 08/03/16 23:40 Peripheral/Venous Blood Culture - Preliminary NO GROWTH AFTER 4 DAYS 08/03/16 00:00 Peripheral/Venous Blood Culture - Preliminary NO GROWTH AFTER 4 DAYS Laboratory Tests 08/08/16 08/08/16 13:50 13:50 WBC 13.0 H BUN 8 L Creatinine 0.5 L
[2016-08-08] MEDS: CLEOCIN 600 MG/50 mL 50 ML IV SCH (20:40)
[2016-08-09] MEDS: LOPRESSOR IV SCH ×4 (00:50→18:38)
[2016-08-09] MEDS: CLEOCIN 600 MG/50 mL 50 ML IV SCH ×3 (04:21→21:00)
[2016-08-09] MEDS: LOVENOX SUB-Q SCH ×2 (05:20→08:47)
[2016-08-09] MEDS: ROCEPHIN/NS 1 GM/50 ML 50 ML IV SCH (10:16)
[2016-08-09] MEDS: PROTONIX IV SCH ×2 (10:18→22:06)
[2016-08-09] MEDS: LANOXIN IV SCH (10:23)
[2016-08-09] MEDS: ASPIRIN PO SCH (10:24)
--- NOTE | 2016-08-09 10:55 | Gastroenterology Consultation ---
History of Present Illness - Reason for Consult Consult date: 08/09/16 Dysphagia/malnutrition Requesting physician: STU WILLIAM - History of Present Illness Asked to see this pleasant 85yo man for PEG placement. Pt was admitted with sepsis due to extensive right arm cellulitis/suspected infected olecranon bursitis. He was bacteremic but repeat blood cx's have been negative to date. He underwent a failed speech evaluation earlier this admission and the plan was for hospice; however, his mental status markedly improved and he became more conversant and the plan for hospice was modified. However, he underwent a MBBS yesterday, with evidence of aspiration. Past History Past Medical History: CAD, hyperlipidemia, other (dementia) Past Surgical History: CABG Social history: Family history: hypertension Medications and Allergies Allergies Allergy/AdvReac Type Severity Reaction Status Date / Time No Known Allergies Allergy Verified 07/29/16 22:15 Home Medications Medication Instructions Recorded Confirmed Last Taken Type Acetaminophen 2 tab PO Q4H PRN 07/30/16 07/30/16 Unknown History Albuterol Sulfate [Ventolin HFA] 2 puff IH Q6H PRN 07/30/16 07/30/16 Unknown History Dabigatran [Pradaxa] 150 mg PO BID 07/30/16 07/30/16 Unknown History Furosemide [Lasix] 20 mg PO QDAY 07/30/16 07/30/16 Unknown History Lisinopril [Zestril] 5 mg PO QDAY 07/30/16 07/30/16 Unknown History Mag Hydrox/Al Hydrox/Simeth 30 ml PO Q2H PRN 07/30/16 07/30/16 Unknown History [Maalox Advanced Suspension] Magnesium Hydroxide [Milk of 30 ml PO Q12H PRN 07/30/16 07/30/16 Unknown History Magnesia] Metoprolol Xl [Metoprolol 25 mg PO QDAY 07/30/16 07/30/16 Unknown History SUCCINATE ER TAB] OLANzapine [ZyPREXA] 5 mg PO BID 07/30/16 07/30/16 Unknown History Pantoprazole [Protonix] 40 mg PO QDAY 07/30/16 07/30/16 Unknown History Simvastatin [Zocor TAB] 20 mg PO QHS 07/30/16 07/30/16 Unknown History chlorproMAZINE [Thorazine INJ] 25 mg IM Q4H PRN 07/30/16 07/30/16 Unknown History Active Meds: Active Medications Acetaminophen (Tylenol) 650 mg PO Q4H PRN PRN Reason: Headache Last Admin: 07/31/16 21:03 Dose: 650 mg Al Hydrox/Mg Hydrox/Simethicone (Alum-Mag Hydrox-Simeth [id number]/5ml) 30 ml PO Q2H PRN PRN Reason: Indigestion Albuterol (Proventil) 2.5 mg IH Q6HRT PRN PRN Reason: Shortness Of Breath Lipase/Protease/Amylase (Pancreaze Dr 10,500 Unit) 1 each FEEDTUBE PRN PRN PRN Reason: For Clogged Feeding Tube Aspirin (Aspirin) 325 mg PO QDAY [facility] Last Admin: 08/09/16 10:24 Dose: Not Given Atorvastatin Calcium (Lipitor) 20 mg PO QHS [facility] Last Admin: 08/08/16 21:22 Dose: 20 mg Chlorpromazine HCl (Thorazine) 25 mg IM Q4H PRN PRN Reason: Agitation Digoxin (Lanoxin) 0.125 mg IV QDAY [facility] Last Admin: 08/09/16 10:23 Dose: 0.125 mg Enoxaparin Sodium (Lovenox) 80 mg SUB-Q Q12H [facility] Last Admin: 08/09/16 08:47 Dose: Not Given Ceftriaxone Sodium (Rocephin/Ns 1 Gm/50 Ml) 50 mls @ 100 mls/hr IV Q24HR [facility] Last Admin: 08/09/16 10:16 Dose: 100 mls/hr Dextrose/Sodium Chloride (D5ns 0.2%) 1,000 mls @ 40 mls/hr IV DIRECT [facility] Last Admin: 08/08/16 13:46 Dose: 75 mls/hr Clindamycin HCl (Cleocin 600 Mg/50 Ml) 50 mls @ 100 mls/hr IV Q8H ORLIN PRN Reason: Protocol Last Admin: 08/09/16 04:21 Dose: 100 mls/hr Magnesium Hydroxide (Milk Of Magnesia) 30 ml PO Q12H PRN PRN Reason: Constipation Metoprolol Tartrate (Lopressor) 5 mg IV Q6HR [facility] Last Admin: 08/09/16 05:21 Dose: 5 mg Morphine Sulfate (Morphine) 2 mg IV Q4H PRN PRN Reason: Pain , Severe (7-10) Last Admin: 08/03/16 05:18 Dose: 2 mg Olanzapine (Zyprexa) 5 mg PO BID [facility] Last Admin: 08/09/16 10:24 Dose: Not Given Pantoprazole Sodium (Protonix) 40 mg IV BID [facility] Last Admin: 08/09/16 10:18 Dose: 40 mg Simple Syrup (Simple Syrup) 15 ml FEEDTUBE PRN PRN PRN Reason: Hypoglycemia Simple Syrup (Simple Syrup) 30 ml FEEDTUBE PRN PRN PRN Reason: Hypoglycemia Sodium Bicarbonate (Sodium Bicarbonate) 325 mg FEEDTUBE PRN PRN PRN Reason: For Clogged Feeding Tube Review of Systems - Review of Systems ROS unobtainable: due to mental status Exam - Constitutional Vital Signs: Temp Pulse Resp BP Pulse Ox 98.1 F 69 18 131/65 95 08/09/16 09:18 08/09/16 09:18 08/09/16 09:18 08/09/16 09:18 08/09/16 09:18 General appearance: no acute distress, other (chronically ill-appearing) - Neck Neck: supple - Respiratory Respiratory: bilateral: CTA - Cardiovascular Rhythm: regular Heart Sounds: Present: S1 & S2 Extremity abnormal: other (extensive right arm erythema with associated edema/ warmth) - Gastrointestinal General gastrointestinal: Present: soft, non-tender, non-distended, normal bowel sounds - Neurologic Neurological: alert and oriented x3 - Psychiatric Psychiatric: appropriate mood/affect - Labs CBC & Chem 7: 08/08/16 13:50 08/08/16 13:50 Lab Results: Laboratory Results - last 24 hr 08/08/16 08/08/16 13:50 13:50 WBC 13.0 H RBC 4.19 Hgb 12.7 Hct 37.5 MCV 90 MCH 30 MCHC 34 RDW 14.7 Plt Count 302 Sodium 142 Potassium 3.3 L Chloride 104.9 Carbon Dioxide 27 Anion Gap 13 BUN 8 L Creatinine 0.5 L Estimated GFR > 60 BUN/Creatinine Ratio 16.00 Glucose 114 H Calcium 7.3 L Assessment and Plan 85yo man s/p failed MBBS, with evidence of aspiration. He is an appropriate candidate for PEG placement. Rec: 1) PEG is high risk at this point, given he is on both full dose ASA as well as therapeutic Lovenox 2) I have discussed this with Dr. William, who will change Lovenox to Heparin gtt for now 3) I will plan for the PEG on 08/11/16 and will hold the Heparin gtt 6 hrs prior to the procedure 4) Given that he has not received adequate nutrition for several days, I would recommend Dobhoff placement with initiation of tube feeds in the interim, while waiting for the PEG to be placed Thank you for allowing me to participate in the care of your patient. Please do not hesitate to contact me with any questions.
[2016-08-09] MEDS: D5NS 0.2% 1,000 ML IV SCH (11:50)
--- NOTE | 2016-08-09 12:55 | Progress Note ---
Assessment and Plan Current Antibiotics: ceftriaxone 1 g IV q24h 07/31 --> Clindamycin 600mg iv Q8H(08/08 Previous antibiotics: Zosyn 4.5 g IV q8h 07/29-07/31 Vancomycin 07/29-07/30 ASSESSMENT: Seng Lemus is an 85-year-old male with dementia, hypertension, coronary artery disease (status post CABG) who was admitted to [facility] on 07/29 with altered mental status, hypotension and right upper extremity erythema and swelling. Admitting blood cultures grew Group A Streptococcus. His right upper extremity has not been improving clinically and he has a persistent leukocytosis despite antibiotic therapy with ceftriaxone Problem list: 1. Extensive right upper extremity cellulitis -Secondary to group A Streptococcus -Is not improving clinically on appropriate antibiotics -Suspect septic olecranon bursitis -Associated high grade bacteremia 2. Group A Streptococcal bacteremia (Strep pyogenes) -Secondary to #1 -09/26 bottles + 07/29/16 -08/03 blood cultures with NGTD 3. Leukocytosis -Secondary to #1 and #2 -improving 4. Alzheimer's dementia 5. Hypokalemia -Improving Plan: 1. Continue ceftriaxone and clindamycin 2. orthopedic evaluation 3. will continue clindamycin for toxin production 4. Follow WBC Subjective Date of service: 08/09/16 Principal diagnosis: Cellulitis, Sepsis Interval history: Patient seen in bed comfortable, he has no new complaints. Objective - Constitutional Vitals: Selected Entries 08/09/16 09:18 Temperature 98.1 F Pulse Rate [ 69 Right] Respiratory 18 Rate O2 Sat by Pulse 95 Oximetry Blood Pressure 131/65 [Left Radial Artery] Blood Pressure 87 Mean [Left Radial Artery] General appearance: Present: no acute distress, well-nourished - EENT Eyes: PERRL, EOM intact, no scleral icterus, no conjunctival injection ENT: hearing intact, poor dentition Ears: bilateral: normal - Neck Neck: supple, normal ROM, no enlarged thyroid, no masses or JVD - Respiratory Respiratory: bilateral: CTA - Breasts Breasts: deferred - Cardiovascular Rhythm: regular Heart Sounds: Present: S1 & S2 Extremities: abnormal (right upper extremity with edema, erythema, tenderness, he is able to move his elbow, indurated diffusely) Extremity abnormal: edema, erythema - Gastrointestinal General gastrointestinal: Present: soft, non-tender, normal bowel sounds - Genitourinary Male genitourinary: deferred - Labs CBC & Chem 7: 08/08/16 13:50 08/08/16 13:50 Labs: Microbiology 08/03/16 23:40 Peripheral/Venous Blood Culture - Final NO GROWTH AFTER 5 DAYS 08/03/16 00:00 Peripheral/Venous Blood Culture - Final NO GROWTH AFTER 5 DAYS 07/30/16 03:29 Urine,Clean Catch Urine Culture - Final NO GROWTH AFTER 48 HOURS Laboratory Tests 08/08/16 08/08/16 13:50 13:50 WBC 13.0 H Plt Count 302 BUN 8 L Creatinine 0.5 L
--- NOTE | 2016-08-09 16:58 | Progress Note ---
Assessment and Plan Assessment and plan: Sepsis with septic shock due to right upper extremity cellulitis and a group A strep bacteremia * weaned off from pressor. Continue Rocephin * Monitor WBC count, * ID following, recommended orthopedics eval, orthopedics consulted New onset A. fib with RVR * Patient was Was on Diltiazem on admission and required an amiodarone drip * Receiving iv labetalol and iv digoxin for rate control now as patient nothing by mouth * Cardiology recommended anticoagulation with Pradaxa, which his not getting because of NPO status * We will place him on heparin drip, until he Can get PEG tube placement Acute renal failure * Likely secondary to vasomotor nephropathy/rhabdomyolysis * Resolved with IV fluids Hypokalemia * Status post aggressive IV replacement * Continue to monitor and replace as needed Rhabdomyolysis * CPK trended down with IV fluids Acute metabolic/toxic encephalopathy * Treating underlying conditions (sepsis and dehydration), much improved today * MRI of the brain still pending Left upper extremity edema/warmth * Status post PICC placement 07/31 * Doppler obtained and negative for DVT/SVT CAD Status post CABG * Beta yary and LASHONDA inhibitor were on hold due to hypotension/acute renal failure * We will resume when can be given by feeding tube Severe dilated cardiomyopathy * Echo showing dilated cardiomyopathy with EF 20-25%, abnormal diastolic function * On beta yary IV for rate control also * Plan to start LASHONDA inhibitor as soon as feeding tube get placed * Cardiology following Hyperlipidemia * Continue statin if cleared by swallow study (simvastatin changed to atorvastatin by lurer due to interaction with Pradaxa) Psychiatric disorder/dementia * On Zyprexa, Supportive care Dysphagia * Did not pass swallow study, 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 MRI of the brain for possible acute CVA still pending * PEG tube placement on August 11, will arrange for Dobbhoff tube placement until he gets the PEG tube for medication and nutrition * cont d5w for now at low dose Hypertension, uncontrolled * on iv labetalol, place on oral medication when feeding tube placed. DVT prophylaxis * Placed on heparin now History Interval history: Patient seen and examined. Medical records and medication list reviewed. No acute event overnight noted by the RN. Patient had barium swallow study and speech recommended PEG placement. Patient will have the PICC placement on 08/11/16 Hospitalist Physical - Physical exam Narrative exam: GENERAL: well-developed male lying on bed appeared to be in no discomfort. HEENT: Normocephalic. Atraumatic. No conjunctival congestion or icterus. Patient appears to be aphasic. NECK: Supple. Trachea midline. CHEST/LUNGS: Clear to auscultated bilaterally, breathing nonlabored. No wheezes crackles or rhonchi. HEART/CARDIOVASCULAR: Regular in rate and rhythm. S1 and S2 positive. ABDOMEN: Abdomen is soft, nontender. Patient has normal bowel sounds. SKIN: There is no rash. Warm and dry. NEURO: Follows command, no focal deficit. MUSCULOSKELETAL: No joint effusion or tenderness. EXTRIMITY: Right upper extremity edema swelling and erythema covered with wound care dressing. PSYCH: He does not have any anxiety or depression. - Constitutional Vitals: Temp Pulse Resp BP Pulse Ox 97.6 F 72 18 161/69 96 08/09/16 13:38 08/09/16 13:38 08/09/16 13:38 08/09/16 13:38 08/09/16 13:38 General appearance: Present: no acute distress Results - Labs CBC & Chem 7: 08/08/16 13:50 08/08/16 13:50 Labs: Laboratory Last Values WBC 13.0 K/mm3 (4.5-11.0) H 08/08/16 13:50 RBC 4.19 M/mm3 (3.65-5.03) 08/08/16 13:50 Hgb 12.7 gm/dl (11.8-15.2) 08/08/16 13:50 Hct 37.5 % (35.5-45.6) 08/08/16 13:50 MCV 90 fl (84-94) 08/08/16 13:50 MCH 30 pg (28-32) 08/08/16 13:50 MCHC 34 % (32-34) 08/08/16 13:50 RDW 14.7 % (13.2-15.2) 08/08/16 13:50 Plt Count 302 K/mm3 (140-440) 08/08/16 13:50 Lymph % (Auto) 5.4 % (13.4-35.0) L 07/29/16 22:15 [place] % (Auto) 4.6 % (0.0-7.3) 07/29/16 22:15 Eos % (Auto) 0.0 % (0.0-4.3) 07/29/16 22:15 Baso % (Auto) 0.1 % (0.0-1.8) 07/29/16 22:15 Lymph # 1.0 K/mm3 (1.2-5.4) L 07/29/16 22:15 [place] # 0.9 K/mm3 (0.0-0.8) H 07/29/16 22:15 Eos # 0.0 K/mm3 (0.0-0.4) 07/29/16 22:15 Baso # 0.0 K/mm3 (0.0-0.1) 07/29/16 22:15 Add Manual Diff Complete 08/05/16 06:00 Total Counted 100 08/05/16 06:00 Seg Neutrophils % Packing Inspector 08/03/16 05:30 Seg Neuts % (Manual) 56.0 % (40.0-70.0) 08/04/16 04:09 Band Neutrophils % 0 % 08/05/16 06:00 Lymphocytes % (Manual) 4.0 % (13.4-35.0) L 08/05/16 06:00 Reactive Lymphs % (Man) 0 % 08/05/16 06:00 Monocytes % (Manual) 0 % (0.0-7.3) 08/05/16 06:00 Eosinophils % (Manual) 0 % (0.0-4.3) 08/05/16 06:00 Basophils % (Manual) 1.0 % (0.0-1.8) 08/05/16 06:00 Metamyelocytes % 0 % 08/05/16 06:00 Myelocytes % 0 % 08/05/16 06:00 Promyelocytes % 0 % 08/05/16 06:00 Blast Cells % 0 % 08/05/16 06:00 Nucleated RBC % Not Reportable 08/05/16 06:00 Seg Neutrophils # 17.5 K/mm3 (1.8-7.7) H 07/29/16 22:15 Seg Neutrophils # Man 20.1 K/mm3 (1.8-7.7) H 08/05/16 06:00 Band Neutrophils # 0.0 K/mm3 08/05/16 06:00 Lymphocytes # (Manual) 0.8 K/mm3 (1.2-5.4) L 08/05/16 06:00 Abs React Lymphs (Man) 0.0 K/mm3 08/05/16 06:00 Monocytes # (Manual) 0.0 K/mm3 (0.0-0.8) 08/05/16 06:00 Eosinophils # (Manual) 0.0 K/mm3 (0.0-0.4) 08/05/16 06:00 Basophils # (Manual) 0.2 K/mm3 (0.0-0.1) H 08/05/16 06:00 Metamyelocytes # 0.0 K/mm3 08/05/16 06:00 Myelocytes # 0.0 K/mm3 08/05/16 06:00 Promyelocytes # 0.0 K/mm3 08/05/16 06:00 Blast Cells # 0.0 K/mm3 08/05/16 06:00 WBC Morphology Not Reportable 08/05/16 06:00 Hypersegmented Neuts Not Reportable 08/05/16 06:00 Hyposegmented Neuts Not Reportable 08/05/16 06:00 Hypogranular Neuts Not Reportable 08/05/16 06:00 Smudge Cells Not Reportable 08/05/16 06:00 Toxic Granulation Not Reportable 08/05/16 06:00 Toxic Vacuolation Not Reportable 08/05/16 06:00 Dohle Bodies Not Reportable 08/05/16 06:00 Pelger-Huet Anomaly Not Reportable 08/05/16 06:00 Arlene Rods Not Reportable 08/05/16 06:00 Platelet Estimate Appears normal 08/05/16 06:00 Clumped Platelets Rare 08/05/16 06:00 Plt Clumps, EDTA Not Reportable 08/05/16 06:00 Large Platelets Not Reportable 08/05/16 06:00 Giant Platelets Rare 08/05/16 06:00 Platelet Satelliting Not Reportable 08/05/16 06:00 Plt Morphology Comment Not Reportable 08/05/16 06:00 RBC Morphology Not Reportable 08/05/16 06:00 Dimorphic RBCs Not Reportable 08/05/16 06:00 Polychromasia 1+ 08/05/16 06:00 Hypochromasia Not Reportable 08/05/16 06:00 Poikilocytosis Not Reportable 08/05/16 06:00 Anisocytosis 1+ 08/05/16 06:00 Microcytosis Not Reportable 08/05/16 06:00 Macrocytosis Not Reportable 08/05/16 06:00 Spherocytes Not Reportable 08/05/16 06:00 Pappenheimer Bodies Not Reportable 08/05/16 06:00 Sickle Cells Not Reportable 08/05/16 06:00 Target Cells Not Reportable 08/05/16 06:00 Tear Drop Cells Not Reportable 08/05/16 06:00 Ovalocytes Few 08/05/16 06:00 Helmet Cells Not Reportable 08/05/16 06:00 [employer] Bodies Not Reportable 08/05/16 06:00 [place] Rings Not Reportable 08/05/16 06:00 Arielle Cells Not Reportable 08/05/16 06:00 Bite Cells Not Reportable 08/05/16 06:00 Crenated Cell Not Reportable 08/05/16 06:00 Elliptocytes Few 08/05/16 06:00 Acanthocytes (Spur) Not Reportable 08/05/16 06:00 Rouleaux Not Reportable 08/05/16 06:00 Hemoglobin C Crystals Not Reportable 08/05/16 06:00 Schistocytes Not Reportable 08/05/16 06:00 Malaria parasites Not Reportable 08/05/16 06:00 Lorenzo Bodies Not Reportable 08/05/16 06:00 Hem Pathologist Commnt No 08/05/16 06:00 PT 22.5 Sec. (12.2-14.9) H 07/29/16 22:55 INR 1.98 (0.87-1.13) H 07/29/16 22:55 VBG pH 7.405 (7.320-7.420) 07/29/16 22:55 Sodium 142 mmol/L (137-145) 08/08/16 13:50 Potassium 3.3 mmol/L (3.6-5.0) L 08/08/16 13:50 Chloride 104.9 mmol/L (98-107) 08/08/16 13:50 Carbon Dioxide 27 mmol/L (22-30) 08/08/16 13:50 Anion Gap 13 mmol/L 08/08/16 13:50 BUN 8 mg/dL (9-20) L 08/08/16 13:50 Creatinine 0.5 mg/dL (0.8-1.5) L 08/08/16 13:50 Estimated GFR > 60 ml/min 08/08/16 13:50 BUN/Creatinine Ratio 16.00 % 08/08/16 13:50 Glucose 114 mg/dL (75-100) H 08/08/16 13:50 Lactic Acid 3.0 mmol/L (0.7-2.0) H* 07/30/16 01:18 Calcium 7.3 mg/dL (8.4-10.2) L 08/08/16 13:50 Magnesium 2.0 mg/dL (1.7-2.3) 08/03/16 05:30 Total Bilirubin 0.6 mg/dL (0.1-1.2) 08/05/16 06:00 AST 26 units/L (5-40) 08/05/16 06:00 ALT 19 units/L (7-56) 08/05/16 06:00 Alkaline Phosphatase 98 units/L (35-129) 08/05/16 06:00 Total Creatine Kinase 313 units/L (55-170) H 08/01/16 05:19 Total Protein 4.7 g/dL (6.3-8.2) L 08/05/16 06:00 Albumin 1.8 g/dL (3.9-5) L 08/05/16 06:00 Albumin/Globulin Ratio 0.6 % 08/05/16 06:00 Urine Color Lizy (Yellow) 07/30/16 03:29 Urine Turbidity Clear (Clear) 07/30/16 03:29 Urine pH 5.0 (5.0-7.0) 07/30/16 03:29 Ur Specific Guy 1.025 (1.003-1.030) 07/30/16 03:29 Urine Protein 30 mg/dl mg/dL (Negative) 07/30/16 03:29 Urine Glucose (UA) Neg mg/dL (Negative) 07/30/16 03:29 Urine Ketones Neg mg/dL (Negative) 07/30/16 03:29 Urine Blood Mod (Negative) 07/30/16 03:29 Urine Nitrite Neg (Negative) 07/30/16 03:29 Urine Bilirubin Neg (Negative) 07/30/16 03:29 Urine Urobilinogen 2.0 mg/dL (<2.0) 07/30/16 03:29 Ur Leukocyte Esterase Neg (Negative) 07/30/16 03:29 Urine WBC (Auto) 1.0 /HPF (0.0-6.0) 07/30/16 03:29 Urine RBC (Auto) 19.0 /HPF (0.0-6.0) 07/30/16 03:29 U Epithel Cells (Auto) < 1.0 /HPF (0-13.0) 07/30/16 03:29 Amorphous Crystals 1+ 07/30/16 03:29 Hyaline Casts 1 /LPF 07/30/16 03:29 Urine Mucus Few /HPF 07/30/16 03:29
--- NOTE | 2016-08-09 17:35 | XRay Report ---
FINAL REPORT EXAM: XR ABDOMEN 1V AP HISTORY: Feeding Tube Placement TECHNIQUE: Supine abdomen PRIORS: None. FINDINGS: Feeding tube present. Distal end overlies the region of fundus of the stomach. Moderate amount of stool and gas colon no distended small bowel loops identified diaphragms are not IMPRESSION: Feeding tube with distal end overlying the fundus of the stomach
[2016-08-09 17:45] LABS: INR 1.28 (0.87-1.13)
[2016-08-09 17:46] LABS: Partial Thromboplastin Time 31.8 Sec. (24.2-36.6)
[2016-08-09 19:18] LABS: Hematocrit 38.1 % (35.5-45.6); Hemoglobin 12.8 gm/dl (11.8-15.2)
--- NOTE | 2016-08-09 19:28 | XRay Report ---
FINAL REPORT EXAM: XR ABDOMEN 1V AP HISTORY: ng tube placement TECHNIQUE: AP view of the abdomen limited PRIORS: Comparison made to today's earlier exam 1700 hours FINDINGS: Feeding tube is been advanced. Distal end overlies the region the gastric antrum/pylorus and crosses the midline. No additional change. Visualized bowel gas is unremarkable. IMPRESSION: Feeding tube is been advanced. It crosses the midline with distal end overlying the region of the gastric antrum/pylorus
[2016-08-10] MEDS: LOPRESSOR IV SCH ×4 (00:56→18:04)
[2016-08-10] MEDS: CLEOCIN 600 MG/50 mL 50 ML IV SCH ×3 (05:00→20:50)
[2016-08-10 08:27] LABS: Basophils % (Auto) 0.7 % (0.0-1.8); Eosinophils % (Auto) 2.5 % (0.0-4.3); Hematocrit 36.5 % (35.5-45.6); Hemoglobin 12.2 gm/dl (11.8-15.2); Mean Corpuscular HGB Conc 34 % (32-34); Mean Corpuscular Hemoglobin 30 pg (28-32); Mean Corpuscular Volume 91 fl (84-94); Platelet Count 320 K/mm3 (140-440); Red Blood Count 4.04 M/mm3 (3.65-5.03); Red Cell Distribution Width 14.6 % (13.2-15.2); White Blood Count 10.1 K/mm3 (4.5-11.0)
[2016-08-10 08:48] LABS: Anion Gap 13 mmol/L; BUN/Creatinine Ratio 15.71; Blood Urea Nitrogen 11 mg/dL (9-20); Calcium 7.4 mg/dL (8.4-10.2); Carbon Dioxide 28 mmol/L (22-30); Chloride 100.5 mmol/L (98-107); Glucose 134 mg/dL (75-100); Potassium 3.4 mmol/L (3.6-5.0); Sodium 138 mmol/L (137-145)
[2016-08-10] MEDS: ASPIRIN PO SCH (10:33)
[2016-08-10] MEDS: HEPARIN/ 0.45% NACL-25,000 UNIT/500 ML 500 ML IV SCH ×2 (10:39→20:00)
[2016-08-10] MEDS: PROTONIX IV SCH ×2 (10:40→21:26)
[2016-08-10] MEDS: ROCEPHIN/NS 1 GM/50 ML 50 ML IV SCH (10:40)
[2016-08-10] MEDS: LANOXIN IV SCH (10:41)
--- NOTE | 2016-08-10 10:51 | Event Note ---
Date: 08/10/16 Tentative plan for PEG tomorrow. TF to stop at [place]. Stop Heparin gtt at 1 AM. Check PT INR today. Thank You KAMARI Watson-BC
--- NOTE | 2016-08-10 12:48 | Progress Note ---
Assessment and Plan Current Antibiotics: ceftriaxone 1 g IV q24h 07/31 --> Clindamycin 600mg iv Q8H(08/08 Previous antibiotics: Zosyn 4.5 g IV q8h 07/29-07/31 Vancomycin 07/29-07/30 ASSESSMENT: Seng Lemus is an 85-year-old male with dementia, hypertension, coronary artery disease (status post CABG) who was admitted to [facility] on 07/29 with altered mental status, hypotension and right upper extremity erythema and swelling. Admitting blood cultures grew Group A Streptococcus. His right upper extremity has not been improving clinically and he has a persistent leukocytosis despite antibiotic therapy with ceftriaxone Problem list: 1. Extensive right upper extremity cellulitis -Secondary to group A Streptococcus -Is not improving clinically on appropriate antibiotics -Suspect septic olecranon bursitis -Associated high grade bacteremia 2. Group A Streptococcal bacteremia (Strep pyogenes) -Secondary to #1 -09/26 bottles + 07/29/16 -08/03 blood cultures with NGTD 3. Leukocytosis -Secondary to #1 and #2 -resolved Plan: 1. Continue ceftriaxone and clindamycin 2. orthopedic evaluation 3. will continue clindamycin for toxin production 4. keep right arm elevated Subjective Date of service: 08/10/16 Principal diagnosis: Cellulitis, Sepsis Interval history: Patient said he is feeling much better, no new complaints Objective - Constitutional Vitals: Vital Signs Temp Pulse Resp BP Pulse Ox 98.2 F 74 18 102/53 94 08/10/16 11:48 08/10/16 11:48 08/10/16 11:48 08/10/16 11:48 08/10/16 11:48 Temperature -Last 24 Hours Temperature 98.2 F Temperature 97.6 F Temperature 98.1 F Temperature 97.8 F Temperature 98.3 F Temperature 97.7 F Temperature 97.6 F General appearance: Present: no acute distress, well-nourished - EENT Eyes: PERRL, EOM intact, no scleral icterus, no conjunctival injection ENT: hearing intact, clear oral mucosa, no oropharyngeal erythema - Neck Neck: supple, normal ROM, no enlarged thyroid, no masses or JVD - Respiratory Respiratory effort: normal Respiratory: bilateral: CTA - Breasts Breasts: deferred - Cardiovascular Rhythm: regular Heart Sounds: Present: S1 & S2 Extremities: no ischemia, abnormal (right upper extremity swelling and erythema extending from mid humerous to wrist) - Gastrointestinal General gastrointestinal: Present: soft, non-tender, normal bowel sounds Rectal Exam: deferred - Genitourinary Male genitourinary: deferred - Integumentary Integumentary: no jaundice, no rash - Labs CBC & Chem 7: 08/10/16 07:50 08/10/16 07:50 Labs: Abnormal lab results 08/09/16 08/10/16 08/10/16 Range/Units 17:09 07:50 07:50 Lymph % (Auto) 10.6 L (13.4-35.0) % Lymph # 1.1 L (1.2-5.4) K/mm3 Seg Neutrophils % 81.4 H (40.0-70.0) % Seg Neutrophils # 8.2 H (1.8-7.7) K/mm3 PT 15.9 H (12.2-14.9) Sec. INR 1.28 H (0.87-1.13) Potassium 3.4 L (3.6-5.0) mmol/L Creatinine 0.7 L (0.8-1.5) mg/dL Glucose 134 H (75-100) mg/dL Calcium 7.4 L (8.4-10.2) mg/dL
[2016-08-10 13:02] LABS: INR 1.32 (0.87-1.13)
--- NOTE | 2016-08-10 13:03 | Event Note ---
Date: 08/10/16 under sterile precautions the olecranon bursa, posterior aspect of the elbow was aspirated, no aspirate was obtained. Do not believe there is any fluid collection to be aspirated. He has extensive cellulitis, recommend continued antibiotics at this point and we'll watch forthe next day or so.Without any obvious fluid collection we'll hold off any drainage procedures.
--- NOTE | 2016-08-10 15:12 | Magnetic Resonance Report ---
MRI BRAIN WITHOUT CONTRAST INDICATION: Possible CVA. COMPARISON: 07/30/[address] FINDINGS: Noncontrast multiplanar and multisequence MRI of the brain demonstrates symmetric, normal ventricles and age-appropriate, mildly enlarged sulci. No acute infarct, hemorrhage, mass effect or midline shift. No abnormal extra-axial masses or fluid collections. Minimal benign bilateral basal ganglia calcifications may be present. Slight periventricular FLAIR and T2 weighted hyperintensities as well as approximately 2.4 cm left temporal-posterior frontal old ischemia/infarct as on axial image 20, series 7, amongst others. Normal major intracranial vascular flow voids. Normal posterior fossa with symmetric seventh and eighth nerve complexes. Preserved basilar cisterns. Dominant left vertebral artery with slight asymmetric flattening of the inferior brainstem ventrally as on axial series 6 image 6, amongst others. Mild nasal septal deviation. Bilateral maxillary sinus possible retention cysts inferiorly measuring up to 2.6 cm on the left. Mild bilateral ethmoid air cell opacification anteriorly as also posteriorly on the left. Clear remainder imaged paranasal sinuses and mastoid air cells. Normal midline structures without evidence of Chiari malformation. CONCLUSION: No acute intracranial CT abnormality with age appropriate atrophy, old left posterior frontal-temporal infarct and sinus disease, as detailed above. Thank you for the opportunity to participate in this patient's care.
[2016-08-10] MEDS: D5NS 0.2% 1,000 ML IV SCH (18:04)
--- NOTE | 2016-08-10 18:46 | Progress Note ---
Assessment and Plan Assessment and plan: Sepsis with septic shock due to right upper extremity cellulitis and a group A strep bacteremia * weaned off from pressor. Continue Rocephin * WBC count trended down * ID following, recommended orthopedics eval, * orthopedics evaluated him today, had bedside aspiration of the olicranon bursa without any fluid collection New onset A. fib with RVR * Patient was Was on Diltiazem on admission and required an amiodarone drip * Receiving iv labetalol and iv digoxin for rate control now as patient nothing by mouth * Cardiology recommended anticoagulation with Pradaxa, * Continue heparin drip for now, until he Can get PEG tube placement Acute renal failure * Likely secondary to vasomotor nephropathy/rhabdomyolysis * Resolved with IV fluids Hypokalemia * Status post aggressive IV replacement * Continue to monitor and replace as needed Rhabdomyolysis * CPK trended down with IV fluids Acute metabolic/toxic encephalopathy * Treating underlying conditions (sepsis and dehydration), much improved today * MRI of the brain did not show any acute infarct Left upper extremity edema/warmth * Status post PICC placement 07/31 * Doppler obtained and negative for DVT/SVT CAD Status post CABG * Beta yary and LASHONDA inhibitor were on hold due to hypotension/acute renal failure * We will resume when can be given by feeding tube Severe dilated cardiomyopathy * Echo showing dilated cardiomyopathy with EF 20-25%, abnormal diastolic function * On beta yary IV for rate control also * Start on ACEI and metoprolol * Cardiology following Hyperlipidemia * Start on Lipitor today (simvastatin changed to atorvastatin by vice president risk management due to interaction with Pradaxa) Psychiatric disorder/dementia * On Zyprexa, Supportive care Dysphagia * Did not pass swallow study, 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 MRI of the brain did not show any acute CVA * PEG tube placement on August 11, placed on Dobbhoff tube placement until he gets the PEG tube for medication and nutrition * Discontinue d5w Hypertension, uncontrolled * Placed on lisinopril and metoprolol * Adjust medications as needed. 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 Medical records and medication list reviewed. No acute event overnight noted by the RN. Patient had barium swallow study and speech recommended PEG placement. Patient will have the PICC placement on 08/11/16, currently getting tube feeding with Dobbhoff tube Hospitalist Physical - Physical exam Narrative exam: GENERAL: well-developed male lying on bed appeared to be in no discomfort. HEENT: Normocephalic. Atraumatic. No conjunctival congestion or icterus. Patient is able to speak, Dobbhoff tube in place. NECK: Supple. Trachea midline. CHEST/LUNGS: Clear to auscultated bilaterally, breathing nonlabored. No wheezes crackles or rhonchi. HEART/CARDIOVASCULAR: Regular in rate and rhythm. S1 and S2 positive. ABDOMEN: Abdomen is soft, nontender. Patient has normal bowel sounds. SKIN: There is no rash. Warm and dry. NEURO: Follows command, no focal deficit. MUSCULOSKELETAL: No joint effusion or tenderness. EXTRIMITY: Right upper extremity edema swelling and erythema covered with wound care dressing. PSYCH: He does not have any anxiety or depression. - Constitutional Vitals: Temp Pulse Resp BP Pulse Ox 98.0 F 65 18 112/64 95 08/10/16 15:20 08/10/16 15:20 08/10/16 15:20 08/10/16 15:20 08/10/16 15:20 General appearance: Present: no acute distress, well-nourished Results - Labs CBC & Chem 7: 08/10/16 07:50 08/10/16 07:50 Labs: Laboratory Last Values WBC 10.1 K/mm3 (4.5-11.0) 08/10/16 07:50 RBC 4.04 M/mm3 (3.65-5.03) 08/10/16 07:50 Hgb 12.2 gm/dl (11.8-15.2) 08/10/16 07:50 Hct 36.5 % (35.5-45.6) 08/10/16 07:50 MCV 91 fl (84-94) 08/10/16 07:50 MCH 30 pg (28-32) 08/10/16 07:50 MCHC 34 % (32-34) 08/10/16 07:50 RDW 14.6 % (13.2-15.2) 08/10/16 07:50 Plt Count 320 K/mm3 (140-440) 08/10/16 07:50 Lymph % (Auto) 10.6 % (13.4-35.0) L 08/10/16 07:50 [place] % (Auto) 4.8 % (0.0-7.3) 08/10/16 07:50 Eos % (Auto) 2.5 % (0.0-4.3) 08/10/16 07:50 Baso % (Auto) 0.7 % (0.0-1.8) 08/10/16 07:50 Lymph # 1.1 K/mm3 (1.2-5.4) L 08/10/16 07:50 [place] # 0.5 K/mm3 (0.0-0.8) 08/10/16 07:50 Eos # 0.3 K/mm3 (0.0-0.4) 08/10/16 07:50 Baso # 0.1 K/mm3 (0.0-0.1) 08/10/16 07:50 Add Manual Diff Complete 08/05/16 06:00 Total Counted 100 08/05/16 06:00 Seg Neutrophils % 81.4 % (40.0-70.0) H 08/10/16 07:50 Seg Neuts % (Manual) 56.0 % (40.0-70.0) 08/04/16 04:09 Band Neutrophils % 0 % 08/05/16 06:00 Lymphocytes % (Manual) 4.0 % (13.4-35.0) L 08/05/16 06:00 Reactive Lymphs % (Man) 0 % 08/05/16 06:00 Monocytes % (Manual) 0 % (0.0-7.3) 08/05/16 06:00 Eosinophils % (Manual) 0 % (0.0-4.3) 08/05/16 06:00 Basophils % (Manual) 1.0 % (0.0-1.8) 08/05/16 06:00 Metamyelocytes % 0 % 08/05/16 06:00 Myelocytes % 0 % 08/05/16 06:00 Promyelocytes % 0 % 08/05/16 06:00 Blast Cells % 0 % 08/05/16 06:00 Nucleated RBC % Not Reportable 08/05/16 06:00 Seg Neutrophils # 8.2 K/mm3 (1.8-7.7) H 08/10/16 07:50 Seg Neutrophils # Man 20.1 K/mm3 (1.8-7.7) H 08/05/16 06:00 Band Neutrophils # 0.0 K/mm3 08/05/16 06:00 Lymphocytes # (Manual) 0.8 K/mm3 (1.2-5.4) L 08/05/16 06:00 Abs React Lymphs (Man) 0.0 K/mm3 08/05/16 06:00 Monocytes # (Manual) 0.0 K/mm3 (0.0-0.8) 08/05/16 06:00 Eosinophils # (Manual) 0.0 K/mm3 (0.0-0.4) 08/05/16 06:00 Basophils # (Manual) 0.2 K/mm3 (0.0-0.1) H 08/05/16 06:00 Metamyelocytes # 0.0 K/mm3 08/05/16 06:00 Myelocytes # 0.0 K/mm3 08/05/16 06:00 Promyelocytes # 0.0 K/mm3 08/05/16 06:00 Blast Cells # 0.0 K/mm3 08/05/16 06:00 WBC Morphology Not Reportable 08/05/16 06:00 Hypersegmented Neuts Not Reportable 08/05/16 06:00 Hyposegmented Neuts Not Reportable 08/05/16 06:00 Hypogranular Neuts Not Reportable 08/05/16 06:00 Smudge Cells Not Reportable 08/05/16 06:00 Toxic Granulation Not Reportable 08/05/16 06:00 Toxic Vacuolation Not Reportable 08/05/16 06:00 Dohle Bodies Not Reportable 08/05/16 06:00 Pelger-Huet Anomaly Not Reportable 08/05/16 06:00 Arlene Rods Not Reportable 08/05/16 06:00 Platelet Estimate Appears normal 08/05/16 06:00 Clumped Platelets Rare 08/05/16 06:00 Plt Clumps, EDTA Not Reportable 08/05/16 06:00 Large Platelets Not Reportable 08/05/16 06:00 Giant Platelets Rare 08/05/16 06:00 Platelet Satelliting Not Reportable 08/05/16 06:00 Plt Morphology Comment Not Reportable 08/05/16 06:00 RBC Morphology Not Reportable 08/05/16 06:00 Dimorphic RBCs Not Reportable 08/05/16 06:00 Polychromasia 1+ 08/05/16 06:00 Hypochromasia Not Reportable 08/05/16 06:00 Poikilocytosis Not Reportable 08/05/16 06:00 Anisocytosis 1+ 08/05/16 06:00 Microcytosis Not Reportable 08/05/16 06:00 Macrocytosis Not Reportable 08/05/16 06:00 Spherocytes Not Reportable 08/05/16 06:00 Pappenheimer Bodies Not Reportable 08/05/16 06:00 Sickle Cells Not Reportable 08/05/16 06:00 Target Cells Not Reportable 08/05/16 06:00 Tear Drop Cells Not Reportable 08/05/16 06:00 Ovalocytes Few 08/05/16 06:00 Helmet Cells Not Reportable 08/05/16 06:00 Brown-Comptche Bodies Not Reportable 08/05/16 06:00 Weston Rings Not Reportable 08/05/16 06:00 Freeburn Cells Not Reportable 08/05/16 06:00 Bite Cells Not Reportable 08/05/16 06:00 Crenated Cell Not Reportable 08/05/16 06:00 Elliptocytes Few 08/05/16 06:00 Acanthocytes (Spur) Not Reportable 08/05/16 06:00 Rouleaux Not Reportable 08/05/16 06:00 Hemoglobin C Crystals Not Reportable 08/05/16 06:00 Schistocytes Not Reportable 08/05/16 06:00 Malaria parasites Not Reportable 08/05/16 06:00 Lorenzo Bodies Not Reportable 08/05/16 06:00 Hem Pathologist Commnt No 08/05/16 06:00 PT 16.3 Sec. (12.2-14.9) H 08/10/16 12:30 INR 1.32 (0.87-1.13) H 08/10/16 12:30 APTT 31.8 Sec. (24.2-36.6) 08/09/16 17:09 Heparin Anti-Xa Level 0.92 U.I./ml (0.3-0.7) H 08/10/16 17:15 VBG pH 7.405 (7.320-7.420) 07/29/16 22:55 Sodium 138 mmol/L (137-145) 08/10/16 07:50 Potassium 3.4 mmol/L (3.6-5.0) L 08/10/16 07:50 Chloride 100.5 mmol/L (98-107) 08/10/16 07:50 Carbon Dioxide 28 mmol/L (22-30) 08/10/16 07:50 Anion Gap 13 mmol/L 08/10/16 07:50 BUN 11 mg/dL (9-20) 08/10/16 07:50 Creatinine 0.7 mg/dL (0.8-1.5) L 08/10/16 07:50 Estimated GFR > 60 ml/min 08/10/16 07:50 BUN/Creatinine Ratio 15.71 % 08/10/16 07:50 Glucose 134 mg/dL (75-100) H 08/10/16 07:50 Lactic Acid 3.0 mmol/L (0.7-2.0) H* 07/30/16 01:18 Calcium 7.4 mg/dL (8.4-10.2) L 08/10/16 07:50 Magnesium 2.0 mg/dL (1.7-2.3) 08/03/16 05:30 Total Bilirubin 0.6 mg/dL (0.1-1.2) 08/05/16 06:00 AST 26 units/L (5-40) 08/05/16 06:00 ALT 19 units/L (7-56) 08/05/16 06:00 Alkaline Phosphatase 98 units/L (35-129) 08/05/16 06:00 Total Creatine Kinase 313 units/L (55-170) H 08/01/16 05:19 Total Protein 4.7 g/dL (6.3-8.2) L 08/05/16 06:00 Albumin 1.8 g/dL (3.9-5) L 08/05/16 06:00 Albumin/Globulin Ratio 0.6 % 08/05/16 06:00 Urine Color Lizy (Yellow) 07/30/16 03:29 Urine Turbidity Clear (Clear) 07/30/16 03:29 Urine pH 5.0 (5.0-7.0) 07/30/16 03:29 Ur Specific [place] 1.025 (1.003-1.030) 07/30/16 03:29 Urine Protein 30 mg/dl mg/dL (Negative) 07/30/16 03:29 Urine Glucose (UA) Neg mg/dL (Negative) 07/30/16 03:29 Urine Ketones Neg mg/dL (Negative) 07/30/16 03:29 Urine Blood Mod (Negative) 07/30/16 03:29 Urine Nitrite Neg (Negative) 07/30/16 03:29 Urine Bilirubin Neg (Negative) 07/30/16 03:29 Urine Urobilinogen 2.0 mg/dL (<2.0) 07/30/16 03:29 Ur Leukocyte Esterase Neg (Negative) 07/30/16 03:29 Urine WBC (Auto) 1.0 /HPF (0.0-6.0) 07/30/16 03:29 Urine RBC (Auto) 19.0 /HPF (0.0-6.0) 07/30/16 03:29 U Epithel Cells (Auto) < 1.0 /HPF (0-13.0) 07/30/16 03:29 Amorphous Crystals 1+ 07/30/16 03:29 Hyaline Casts 1 /LPF 07/30/16 03:29 Urine Mucus Few /HPF 07/30/16 03:29
[2016-08-10] MEDS: ZESTRIL PO SCH (21:24)
[2016-08-11] MEDS: CLEOCIN 600 MG/50 mL 50 ML IV SCH ×3 (04:15→21:08)
[2016-08-11 07:49] LABS: Hematocrit 36.4 % (35.5-45.6); Hemoglobin 12.2 gm/dl (11.8-15.2)
[2016-08-11] MEDS: LANOXIN IV SCH (09:38)
[2016-08-11] MEDS: PROTONIX IV SCH (09:38)
[2016-08-11] MEDS: ROCEPHIN/NS 1 GM/50 ML 50 ML IV SCH (09:39)
[2016-08-11] MEDS: LOPRESSOR PO SCH (09:42)
[2016-08-11] MEDS: ASPIRIN PO SCH (09:42)
[2016-08-11] MEDS: ZESTRIL PO SCH (09:42)
[2016-08-11] MEDS ORDERED: NACL 0.9% 1000 ML 1,000 ML ONE (10:47)
[2016-08-11] MEDS ORDERED: ANCEF/STERILE WATER 2 GM/20 ML 20 ML IV NR (11:00)
[2016-08-11] MEDS ORDERED: NACL 0.9% 1000 ML 1,000 ML IV SCH (11:00)
[2016-08-11] MEDS ORDERED: DIPRIVAN 10 MG/ML IV ONE (11:26)
--- NOTE | 2016-08-11 11:26 | Anesthesia Day of Surgery ---
Anesthesia Day of Surgery - Day of Surgery Patient Examined: Yes Patient H&P Reviewed: Yes Patient is NPO: Yes Beta Blockers: Yes
--- NOTE | 2016-08-11 11:26 | Anesthesia Consultation ---
Anesthesia Consult and Med Hx Date of service: 08/11/16 - Airway Anesthetic Teeth Evaluation: Good ROM Head & Neck: Adequate Mental/Hyoid Distance: Adequate Mallampati Class: Class III Intubation Access Assessment: Probably Good - Pulmonary Exam CTA: Yes - Cardiac Exam Cardiac Exam: RRR - Pre-Operative Health Status ASA Pre-Surgery Classification: ASA4 Proposed Anesthetic Plan: General - Cardiovascular System Hx Hypertension: Yes Hx Coronary Artery Disease: Yes Hx Pacemaker: No Hx Internal Defibrillator: No Hx Valvular Heart Disease: Yes Hx Heart Murmur: Yes (A fib) - Central Nervous System Hx Psychiatric Problems: Yes (Dementia) - Additional Comments Anesthesia Medical History Comments: Patient is unable to provide any medical history, but can follow basic commands.
[2016-08-11] MEDS ORDERED: WATER FOR IRRIG STERILE IR ONE ×2 (12:24→22:50)
--- NOTE | 2016-08-11 12:30 | Post Operative Note ---
Pre-op diagnosis: Dysphagia/malnutrition Post-op diagnosis: same Findings: EGD/PEG Esophagus/stomach/duodenum: Normal 20Fr Halyard PEG pulled from ant abd wall; ext bolster at 3. No complications Rec: 1) Return to floor 2) Tube feeds to start in AM 3) PEG ok now to use for meds/free H20 flushes 4) Resume A/C in 6 hours Procedure: EGD/PEG Anesthesia: MAC Surgeon: ANGELINA THOMAS Estimated blood loss: minimal Pathology: none Condition: stable Disposition: floor
--- NOTE | 2016-08-11 13:09 | Operative Report ---
PROCEDURE PERFORMED: Upper endoscopy and PEG placement. PREOPERATIVE DIAGNOSES: Dysphagia, malnutrition, aspiration. POSTOPERATIVE DIAGNOSES: Dysphagia, malnutrition, aspiration. ANESTHESIA: Via monitored anesthesia care. DESCRIPTION OF PROCEDURE: After informed consent was obtained from the patient's niece, the patient was left in supine position. A standard Fujinon upper endoscope was inserted into the mouth and advanced to the second portion of duodenum. Scope was then carefully withdrawn and mucosa was carefully examined. FINDINGS: The esophagus, stomach, and duodenum (up to the second portion) all appeared normal. After a complete exam, the scope was withdrawn into the patient's stomach and the stomach was insufflated. A satisfactory 1:1 location was identified on the patient's skin to allow for appropriate PEG placement. The area was then cleaned and prepped in sterile fashion. Skin was locally anesthetized with 1% lidocaine. A small incision was made in the patient's skin and a trocar was introduced through the incision under endoscopic guidance. A guidewire was advanced through the trocar, which was retrieved via snare and the scope was withdrawn from the patient along with the guidewire. A 20-Thai Halyard PEG was attached to the proximal end of the guidewire and the PEG was pulled out successfully through the patient's anterior abdominal wall with the external bolster at 5. Prior to any skin incision, the patient received Ancef IV piggyback x 1. The patient tolerated the procedure well without any complications. ESTIMATED BLOOD LOSS: Minimal. COMPLICATIONS: None. IMPRESSION: An 85-year-old gentleman with dysphagia/malnutrition/aspiration, status post successful PEG placement today. RECOMMENDATIONS: 1. Return to floor. 2. Tube feeds to start tomorrow morning. 3. PEG is okay to use now for medications and free water flushes. 4. Anticoagulation is okay to be resumed in 6 hours. JOB# [id number] LEISA/DESMOND DYER
[2016-08-11] MEDS: MORPHINE IV PRN ×2 (13:11→23:04)
--- NOTE | 2016-08-11 13:26 | Post Anesthesia Evaluation ---
- Post Anesthesia Evaluation Patient Participated: Yes Airway Patent: Yes Stable Respiratory Function: Yes Nausea/Vomiting: No Temp > 96.8F: Yes Pain Manageable: Yes Adequeate Hydration: Yes Anesthesia Complications: No Block Receding Appropriately: Not Applicable Patient on Ventilator: No
--- NOTE | 2016-08-11 16:31 | Progress Note ---
[id number] Qualifiers: Laterality: right Qualified Code(s): L03.113 - Cellulitis of right upper limb Plan to address problem: continue with antibiotics, elevation, range of liane fingers, hand Discharge per internal medicine, follow up in office upon discharge. Subjective Date of service: 08/11/16 Principal diagnosis: Cellulitis, Sepsis Interval history: Cellulitis forearm, clinically improving. Objective Vital signs: Vital Signs - 12hr 08/11/16 08/11/16 08/11/16 07:26 10:56 11:00 Temperature 97.9 F 98.0 F 97.5 F L Pulse Rate 70 Pulse Rate [ 69 68 Left Radial] Respiratory 18 18 28 H Rate Blood Pressure 149/64 Blood Pressure 103/40 95/48 [Left Calf] O2 Sat by Pulse 95 95 95 Oximetry 08/11/16 08/11/16 08/11/16 11:44 12:30 12:49 Temperature 97.5 F L 98.1 F Pulse Rate 70 72 74 Pulse Rate [ Left Radial] Respiratory 28 H 27 H 20 Rate Blood Pressure 149/64 155/65 169/79 Blood Pressure [Left Calf] O2 Sat by Pulse 95 96 98 Oximetry 08/11/16 08/11/16 08/11/16 13:00 13:11 13:20 Temperature Pulse Rate 75 71 Pulse Rate [ Left Radial] Respiratory 21 22 16 Rate Blood Pressure 165/78 158/66 Blood Pressure [Left Calf] O2 Sat by Pulse 97 97 Oximetry 08/11/16 14:42 Temperature Pulse Rate 74 Pulse Rate [ Left Radial] Respiratory Rate Blood Pressure Blood Pressure [Left Calf] O2 Sat by Pulse Oximetry - Labs CBC & BMP: 08/12/16 04:30 08/12/16 04:30 Labs: Abnormal lab results 08/10/16 Range/Units 17:15 Heparin Anti-Xa Level 0.92 H (0.3-0.7) U.I./ml
--- NOTE | 2016-08-11 16:46 | Progress Note ---
Assessment and Plan Current Antibiotics: ceftriaxone 1 g IV q24h 07/31 --08/11, 2 gr daily ( 08/11 - > Clindamycin 600mg iv Q8H(08/08 Previous antibiotics: Zosyn 4.5 g IV q8h 07/29-07/31 Vancomycin 07/29-07/30 ASSESSMENT: Seng Lemus is an 85-year-old male with dementia, hypertension, coronary artery disease (status post CABG) who was admitted to [facility] on 07/29 with altered mental status, hypotension and right upper extremity erythema and swelling. Admitting blood cultures grew Group A Streptococcus. His right upper extremity has not been improving clinically and he has a persistent leukocytosis despite antibiotic therapy with ceftriaxone Problem list: 1. Extensive right upper extremity cellulitis -Secondary to group A Streptococcus -Slow improvement -R/O septic olecranon bursitis -Associated high grade bacteremia 2. Group A Streptococcal bacteremia (Strep pyogenes) -Secondary to #1 -09/26 bottles + 07/29/16 -08/03 blood cultures with NGTD 3. Leukocytosis -Secondary to #1 and #2 -resolved Plan: 1. Continue ceftriaxone ( dose increase to 2 g daily) and clindamycin 2. No obvious loculated fluid/abscess to drain. ( discussed with Dr Boyd). 3. Continue right arm elevation. Subjective Date of service: 08/11/16 Principal diagnosis: Cellulitis, Sepsis Interval history: Patient describes decreased right elbow swelling. Objective - Exam Narrative Exam: No distress. HEENT: Pupils are equal reactive to light and accommodation. Conjunctiva clear. Oropharynx is normal with no evidence of oral candidiasis or pharyngitis. NECK: Supple. No enlargement of the thyroid gland. No significant cervical lymphadenopathy. No jugular venous distention at 30. LUNGS: Clear with no adventitious sounds. HEART: Regular rate. S1 and S2 are normal. Grade 2/6 systolic ejection murmur at the left sternal border. No diastolic murmur. ABDOMEN: Soft and nontender. Liver and spleen are not palpably enlarged or tender. No palpable masses. Bowel sounds are normoactive. PEG site without redness. Larson catheter in place. EXTREMITIES: Moderate diffuse swelling of right olecranon. Induration over distal triceps. No fluctuance. Mild skin site erythema. Able to flex and extend right elbow without pain. Mild swelling left elbow without redness or tenderness. Right groin catheter site without redness or swelling. Left arm line dressings clean. SKIN: No other rash, ulcers or wounds. NEUROLOGIC: No focal findings. - Constitutional Vitals: Vital Signs Temp Pulse Resp BP Pulse Ox 98.0 F 88 18 110/50 96 08/11/16 16:36 08/11/16 16:36 08/11/16 16:36 08/11/16 16:36 08/11/16 16:36 Temperature -Last 24 Hours Temperature 98.0 F Temperature 98.1 F Temperature 97.5 F Temperature 97.5 F Temperature 98.0 F Temperature 97.9 F Temperature 98.2 F Temperature 97.9 F Temperature 97.6 F - Labs CBC & Chem 7: 08/11/16 04:00 08/10/16 07:50 Labs: Abnormal lab results 08/10/16 Range/Units 17:15 Heparin Anti-Xa Level 0.92 H (0.3-0.7) U.I./ml
[2016-08-11] MEDS: ROCEPHIN/NS 2 GM/100 ML 100 ML IV SCH (18:29)
--- NOTE | 2016-08-11 19:13 | Progress Note ---
Assessment and Plan Assessment and plan: Sepsis with septic shock due to right upper extremity cellulitis and a group A strep bacteremia * Weaned off from pressor * Continue Rocephin * ID following, recommended orthopedics eval * Orthopedics performed bedside aspiration of the olecranon bursa, but no fluid collection New onset A. fib with RVR * Patient was Was on Diltiazem on admission and required an amiodarone drip * Receiving iv labetalol and iv digoxin for rate control now as patient nothing by mouth (scheduled for PEG tube placement) * Cardiology recommended anticoagulation with Pradaxa; currently on heparin drip until PEG tube placed Acute renal failure * Likely secondary to vasomotor nephropathy/rhabdomyolysis * Resolved with IV fluids Hypokalemia * Status post aggressive IV replacement * Continue to monitor and replace as needed Rhabdomyolysis * CPK trended down with IV fluids Acute metabolic/toxic encephalopathy * Treating underlying conditions (sepsis and dehydration), much improved * MRI of the brain did not show any acute infarct Left upper extremity edema/warmth * Status post PICC placement 07/31 * Doppler obtained and negative for DVT/SVT CAD Status post CABG * Beta yary and LASHONDA inhibitor were on hold due to hypotension/acute renal failure * Will resume when can be given through feeding tube Severe dilated cardiomyopathy * Echo showing dilated cardiomyopathy with EF 20-25%, abnormal diastolic function * Started on on ACEI and metoprolol * Cardiology following Hypertension * On lisinopril and metoprolol * With BP and adjust regimen as needed Hyperlipidemia * Started on Lipitor (simvastatin changed to atorvastatin by smoke jumper due to interaction with Pradaxa) Psychiatric disorder/dementia * On Zyprexa * Supportive care Dysphagia * Did not pass swallow study (CT head showed remote left frontal temporal lobe infarct; MRI of the brain did not show any acute CVA) * PEG tube recommended by speech after barium swallow * Status post PEG placement 08/11 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 Absent: scleral icterus, conjunctival injection - Neck Neck: Present: supple, normal ROM. Absent: masses or JVD - Respiratory Respiratory effort: normal Respiratory: bilateral: CTA, negative: rhonchi, wheezing - Cardiovascular Rhythm: regular Heart Sounds: Present: S1 & S2. Absent: systolic murmur - Extremities Extremities: no ischemia, abnormal (RUE improved edema and erythema) - Abdominal General gastrointestinal: soft, non-tender, non-distended, normal bowel sounds - Psychiatric Psychiatric: cooperative, other (mental status likely back to baseline) - Neurologic Neurologic: moves all extremities Results - Labs CBC & Chem 7: 08/12/16 04:30 08/12/16 04:30 Labs: Laboratory Last Values WBC 10.1 K/mm3 (4.5-11.0) 08/10/16 07:50 RBC 4.04 M/mm3 (3.65-5.03) 08/10/16 07:50 Hgb 12.2 gm/dl (11.8-15.2) 08/11/16 04:00 Hct 36.4 % (35.5-45.6) 08/11/16 04:00 MCV 91 fl (84-94) 08/10/16 07:50 MCH 30 pg (28-32) 08/10/16 07:50 MCHC 34 % (32-34) 08/10/16 07:50 RDW 14.6 % (13.2-15.2) 08/10/16 07:50 Plt Count 317 K/mm3 (140-440) 08/11/16 04:00 Lymph % (Auto) 10.6 % (13.4-35.0) L 08/10/16 07:50 [place] % (Auto) 4.8 % (0.0-7.3) 08/10/16 07:50 Eos % (Auto) 2.5 % (0.0-4.3) 08/10/16 07:50 Baso % (Auto) 0.7 % (0.0-1.8) 08/10/16 07:50 Lymph # 1.1 K/mm3 (1.2-5.4) L 08/10/16 07:50 [place] # 0.5 K/mm3 (0.0-0.8) 08/10/16 07:50 Eos # 0.3 K/mm3 (0.0-0.4) 08/10/16 07:50 Baso # 0.1 K/mm3 (0.0-0.1) 08/10/16 07:50 Add Manual Diff Complete 08/05/16 06:00 Total Counted 100 08/05/16 06:00 Seg Neutrophils % 81.4 % (40.0-70.0) H 08/10/16 07:50 Seg Neuts % (Manual) 56.0 % (40.0-70.0) 08/04/16 04:09 Band Neutrophils % 0 % 08/05/16 06:00 Lymphocytes % (Manual) 4.0 % (13.4-35.0) L 08/05/16 06:00 Reactive Lymphs % (Man) 0 % 08/05/16 06:00 Monocytes % (Manual) 0 % (0.0-7.3) 08/05/16 06:00 Eosinophils % (Manual) 0 % (0.0-4.3) 08/05/16 06:00 Basophils % (Manual) 1.0 % (0.0-1.8) 08/05/16 06:00 Metamyelocytes % 0 % 08/05/16 06:00 Myelocytes % 0 % 08/05/16 06:00 Promyelocytes % 0 % 08/05/16 06:00 Blast Cells % 0 % 08/05/16 06:00 Nucleated RBC % Not Reportable 08/05/16 06:00 Seg Neutrophils # 8.2 K/mm3 (1.8-7.7) H 08/10/16 07:50 Seg Neutrophils # Man 20.1 K/mm3 (1.8-7.7) H 08/05/16 06:00 Band Neutrophils # 0.0 K/mm3 08/05/16 06:00 Lymphocytes # (Manual) 0.8 K/mm3 (1.2-5.4) L 08/05/16 06:00 Abs React Lymphs (Man) 0.0 K/mm3 08/05/16 06:00 Monocytes # (Manual) 0.0 K/mm3 (0.0-0.8) 08/05/16 06:00 Eosinophils # (Manual) 0.0 K/mm3 (0.0-0.4) 08/05/16 06:00 Basophils # (Manual) 0.2 K/mm3 (0.0-0.1) H 08/05/16 06:00 Metamyelocytes # 0.0 K/mm3 08/05/16 06:00 Myelocytes # 0.0 K/mm3 08/05/16 06:00 Promyelocytes # 0.0 K/mm3 08/05/16 06:00 Blast Cells # 0.0 K/mm3 08/05/16 06:00 WBC Morphology Not Reportable 08/05/16 06:00 Hypersegmented Neuts Not Reportable 08/05/16 06:00 Hyposegmented Neuts Not Reportable 08/05/16 06:00 Hypogranular Neuts Not Reportable 08/05/16 06:00 Smudge Cells Not Reportable 08/05/16 06:00 Toxic Granulation Not Reportable 08/05/16 06:00 Toxic Vacuolation Not Reportable 08/05/16 06:00 Dohle Bodies Not Reportable 08/05/16 06:00 Pelger-Huet Anomaly Not Reportable 08/05/16 06:00 Arlene Rods Not Reportable 08/05/16 06:00 Platelet Estimate Appears normal 08/05/16 06:00 Clumped Platelets Rare 08/05/16 06:00 Plt Clumps, EDTA Not Reportable 08/05/16 06:00 Large Platelets Not Reportable 08/05/16 06:00 Giant Platelets Rare 08/05/16 06:00 Platelet Satelliting Not Reportable 08/05/16 06:00 Plt Morphology Comment Not Reportable 08/05/16 06:00 RBC Morphology Not Reportable 08/05/16 06:00 Dimorphic RBCs Not Reportable 08/05/16 06:00 Polychromasia 1+ 08/05/16 06:00 Hypochromasia Not Reportable 08/05/16 06:00 Poikilocytosis Not Reportable 08/05/16 06:00 Anisocytosis 1+ 08/05/16 06:00 Microcytosis Not Reportable 08/05/16 06:00 Macrocytosis Not Reportable 08/05/16 06:00 Spherocytes Not Reportable 08/05/16 06:00 Pappenheimer Bodies Not Reportable 08/05/16 06:00 Sickle Cells Not Reportable 08/05/16 06:00 Target Cells Not Reportable 08/05/16 06:00 Tear Drop Cells Not Reportable 08/05/16 06:00 Ovalocytes Few 08/05/16 06:00 Helmet Cells Not Reportable 08/05/16 06:00 Brown-Markle Bodies Not Reportable 08/05/16 06:00 [place] Rings Not Reportable 08/05/16 06:00 Arielle Cells Not Reportable 08/05/16 06:00 Bite Cells Not Reportable 08/05/16 06:00 Crenated Cell Not Reportable 08/05/16 06:00 Elliptocytes Few 08/05/16 06:00 Acanthocytes (Spur) Not Reportable 08/05/16 06:00 Rouleaux Not Reportable 08/05/16 06:00 Hemoglobin C Crystals Not Reportable 08/05/16 06:00 Schistocytes Not Reportable 08/05/16 06:00 Malaria parasites Not Reportable 08/05/16 06:00 Lorenzo Bodies Not Reportable 08/05/16 06:00 Hem Pathologist Commnt No 08/05/16 06:00 PT 16.3 Sec. (12.2-14.9) H 08/10/16 12:30 INR 1.32 (0.87-1.13) H 08/10/16 12:30 APTT 31.8 Sec. (24.2-36.6) 08/09/16 17:09 Heparin Anti-Xa Level < 0.10 U.I./ml (0.3-0.7) L 08/11/16 16:15 VBG pH 7.405 (7.320-7.420) 07/29/16 22:55 Sodium 138 mmol/L (137-145) 08/10/16 07:50 Potassium 3.4 mmol/L (3.6-5.0) L 08/10/16 07:50 Chloride 100.5 mmol/L (98-107) 08/10/16 07:50 Carbon Dioxide 28 mmol/L (22-30) 08/10/16 07:50 Anion Gap 13 mmol/L 08/10/16 07:50 BUN 11 mg/dL (9-20) 08/10/16 07:50 Creatinine 0.7 mg/dL (0.8-1.5) L 08/10/16 07:50 Estimated GFR > 60 ml/min 08/10/16 07:50 BUN/Creatinine Ratio 15.71 % 08/10/16 07:50 Glucose 134 mg/dL (75-100) H 08/10/16 07:50 Lactic Acid 3.0 mmol/L (0.7-2.0) H* 07/30/16 01:18 Calcium 7.4 mg/dL (8.4-10.2) L 08/10/16 07:50 Magnesium 2.0 mg/dL (1.7-2.3) 08/03/16 05:30 Total Bilirubin 0.6 mg/dL (0.1-1.2) 08/05/16 06:00 AST 26 units/L (5-40) 08/05/16 06:00 ALT 19 units/L (7-56) 08/05/16 06:00 Alkaline Phosphatase 98 units/L (35-129) 08/05/16 06:00 Total Creatine Kinase 313 units/L (55-170) H 08/01/16 05:19 Total Protein 4.7 g/dL (6.3-8.2) L 08/05/16 06:00 Albumin 1.8 g/dL (3.9-5) L 08/05/16 06:00 Albumin/Globulin Ratio 0.6 % 08/05/16 06:00 Urine Color Lizy (Yellow) 07/30/16 03:29 Urine Turbidity Clear (Clear) 07/30/16 03:29 Urine pH 5.0 (5.0-7.0) 07/30/16 03:29 Ur Specific [place] 1.025 (1.003-1.030) 07/30/16 03:29 Urine Protein 30 mg/dl mg/dL (Negative) 07/30/16 03:29 Urine Glucose (UA) Neg mg/dL (Negative) 07/30/16 03:29 Urine Ketones Neg mg/dL (Negative) 07/30/16 03:29 Urine Blood Mod (Negative) 07/30/16 03:29 Urine Nitrite Neg (Negative) 07/30/16 03:29 Urine Bilirubin Neg (Negative) 07/30/16 03:29 Urine Urobilinogen 2.0 mg/dL (<2.0) 07/30/16 03:29 Ur Leukocyte Esterase Neg (Negative) 07/30/16 03:29 Urine WBC (Auto) 1.0 /HPF (0.0-6.0) 07/30/16 03:29 Urine RBC (Auto) 19.0 /HPF (0.0-6.0) 07/30/16 03:29 U Epithel Cells (Auto) < 1.0 /HPF (0-13.0) 07/30/16 03:29 Amorphous Crystals 1+ 07/30/16 03:29 Hyaline Casts 1 /LPF 07/30/16 03:29 Urine Mucus Few /HPF 07/30/16 03:29
[2016-08-11] MEDS: PROTONIX PO SCH (21:09)
[2016-08-11] MEDS: HEPARIN/ 0.45% NACL-25,000 UNIT/500 ML 500 ML IV SCH (21:10)
[2016-08-12] MEDS: CLEOCIN 600 MG/50 mL 50 ML IV SCH ×2 (04:00→12:34)
[2016-08-12 04:55] LABS: Basophils % (Auto) 0.9 % (0.0-1.8); Eosinophils % (Auto) 1.5 % (0.0-4.3); Hematocrit 34.6 % (35.5-45.6); Hemoglobin 11.4 gm/dl (11.8-15.2); Mean Corpuscular HGB Conc 33 % (32-34); Mean Corpuscular Hemoglobin 30 pg (28-32); Mean Corpuscular Volume 91 fl (84-94); Platelet Count 340 K/mm3 (140-440); Red Blood Count 3.79 M/mm3 (3.65-5.03); Red Cell Distribution Width 15.1 % (13.2-15.2); White Blood Count 10.1 K/mm3 (4.5-11.0)
[2016-08-12 05:26] LABS: Anion Gap 16 mmol/L; Blood Urea Nitrogen 14 mg/dL (9-20); Calcium 7.7 mg/dL (8.4-10.2); Carbon Dioxide 24 mmol/L (22-30); Chloride 103.5 mmol/L (98-107); Glucose 85 mg/dL (75-100); Potassium 3.9 mmol/L (3.6-5.0); Sodium 140 mmol/L (137-145)
[2016-08-12] MEDS: HEPARIN/ 0.45% NACL-25,000 UNIT/500 ML 500 ML IV SCH ×3 (05:55→12:57)
--- NOTE | 2016-08-12 07:30 | Gastroenterology Progress Note ---
Assessment and Plan 85m with dysphagia/malnutrition/aspiration, s/p PEG yesterday. Rec: 1) OK to use PEG for tube feeds 2) Routine PEG care I will stop following daily, but please do not hesitate to contact me with any questions. Thank you! Subjective Date of service: 08/12/16 Principal diagnosis: Dysphagia/malnutrition Interval history: Pt seen/examined today. S/P PEG yesterday. Awaiting initiation of tube feeds this AM. No acute overnight events. He is w/o any abdominal complaints today. Objective - Constitutional Vitals: Temp Pulse Resp BP Pulse Ox 98.0 F 78 18 131/61 93 08/12/16 04:00 08/12/16 04:00 08/12/16 04:00 08/12/16 04:00 08/12/16 04:00 General appearance: no acute distress - Neck Neck: supple - Respiratory Respiratory: bilateral: CTA - Cardiovascular Rhythm: regular Heart Sounds: Present: S1 & S2 - Extremities Extremity abnormal: other (right arm erythema/edema) - Gastrointestinal General gastrointestinal: Present: soft, non-tender, non-distended, normal bowel sounds, other (PEG site C/D/I; flushed with H20 w/o problems) - Neurologic Neurological: alert and oriented x3 - Labs CBC & Chem 7: 08/12/16 04:30 08/12/16 04:30 Labs: Laboratory Results - last 24 hr 08/11/16 08/11/16 08/12/16 04:00 16:15 04:30 WBC 10.1 RBC 3.79 Hgb 12.2 11.4 L Hct 36.4 34.6 L MCV 91 MCH 30 MCHC 33 RDW 15.1 Plt Count 317 340 Lymph % (Auto) 14.1 [place] % (Auto) 5.6 Eos % (Auto) 1.5 Baso % (Auto) 0.9 Lymph # 1.4 [place] # 0.6 Eos # 0.1 Baso # 0.1 Seg Neutrophils % 77.9 H Seg Neutrophils # 7.9 H Heparin Anti-Xa Level < 0.10 L Sodium Potassium Chloride Carbon Dioxide Anion Gap BUN Creatinine Estimated GFR BUN/Creatinine Ratio Glucose Calcium 08/12/16 08/12/16 04:30 04:30 WBC RBC Hgb Hct MCV MCH MCHC RDW Plt Count Lymph % (Auto) [place] % (Auto) Eos % (Auto) Baso % (Auto) Lymph # [place] # Eos # Baso # Seg Neutrophils % Seg Neutrophils # Heparin Anti-Xa Level < 0.10 L Sodium 140 Potassium 3.9 Chloride 103.5 Carbon Dioxide 24 Anion Gap 16 BUN 14 Creatinine 0.7 L Estimated GFR > 60 BUN/Creatinine Ratio 20.00 Glucose 85 Calcium 7.7 L
--- NOTE | 2016-08-12 09:44 | Progress Note ---
Subjective Date of service: 08/12/16 Principal diagnosis: Dysphagia/malnutrition Objective Vital signs: Vital Signs - 12hr 08/11/16 08/12/16 08/12/16 22:00 00:00 04:00 Temperature 98.3 F 98.0 F Pulse Rate 77 Pulse Rate [ Left Dorsalis Pedis] Pulse Rate [ 87 78 Left Radial] Respiratory 18 18 Rate Blood Pressure 157/73 131/61 [Left Radial Artery] O2 Sat by Pulse 97 93 Oximetry 08/12/16 08/12/16 07:50 09:02 Temperature 98.2 F Pulse Rate 72 Pulse Rate [ 83 Left Dorsalis Pedis] Pulse Rate [ Left Radial] Respiratory 22 Rate Blood Pressure 140/63 [Left Radial Artery] O2 Sat by Pulse 97 Oximetry - Labs CBC & BMP: 08/12/16 04:30 08/12/16 04:30 Labs: Abnormal lab results 08/11/16 08/12/16 08/12/16 Range/Units 16:15 04:30 04:30 Hgb 11.4 L (11.8-15.2) gm/dl Hct 34.6 L (35.5-45.6) % Seg Neutrophils % 77.9 H (40.0-70.0) % Seg Neutrophils # 7.9 H (1.8-7.7) K/mm3 Heparin Anti-Xa Level < 0.10 L (0.3-0.7) U.I./ml Creatinine 0.7 L (0.8-1.5) mg/dL Calcium 7.7 L (8.4-10.2) mg/dL 08/12/16 Range/Units 04:30 Hgb (11.8-15.2) gm/dl Hct (35.5-45.6) % Seg Neutrophils % (40.0-70.0) % Seg Neutrophils # (1.8-7.7) K/mm3 Heparin Anti-Xa Level < 0.10 L (0.3-0.7) U.I./ml Creatinine (0.8-1.5) mg/dL Calcium (8.4-10.2) mg/dL
[2016-08-12] MEDS: LANOXIN IV SCH (09:47)
[2016-08-12] MEDS: PROTONIX PO SCH (09:47)
[2016-08-12] MEDS: ZESTRIL PO SCH (09:47)
[2016-08-12] MEDS: LOPRESSOR PO SCH (09:47)
[2016-08-12] MEDS ORDERED: BABY ASPIRIN PO SCH (10:00)
[2016-08-12] MEDS ORDERED: SODIUM BICARBONATE FEEDTUBE PRN ×2 (10:33→10:35)
[2016-08-12] MEDS ORDERED: SIMPLE SYRUP FEEDTUBE PRN ×4 (10:33→10:35)
[2016-08-12] MEDS ORDERED: PANCREAZE DR 10,500 UNIT FEEDTUBE PRN ×2 (10:33→10:35)
--- NOTE | 2016-08-12 12:13 | Progress Note ---
Assessment and Plan Current Antibiotics: ceftriaxone 1 g IV q24h 07/31 --08/11, 2 gr daily ( 08/11 - > Clindamycin 600mg iv Q8H(08/08 Previous antibiotics: Zosyn 4.5 g IV q8h 07/29-07/31 Vancomycin 07/29-07/30 ASSESSMENT: Seng Lemus is an 85-year-old male with dementia, hypertension, coronary artery disease (status post CABG) who was admitted to [facility] on 07/29 with altered mental status, hypotension and right upper extremity erythema and swelling. Admitting blood cultures grew Group A Streptococcus. His right upper extremity has not been improving clinically and he has a persistent leukocytosis despite antibiotic therapy with ceftriaxone Problem list: 1. Extensive right upper extremity cellulitis -Secondary to group A Streptococcus -Slow improvement -R/O septic olecranon bursitis -Associated high grade bacteremia --No obvious loculated fluid/abscess to drain as per Dr. Boyd 2. Group A Streptococcal bacteremia (Strep pyogenes) -Secondary to #1 -09/26 bottles + 07/29/16 -08/03/16 blood cultures with NGTD 3. Leukocytosis -Secondary to #1 and #2 -resolved Plan: 1. Continue ceftriaxone ( dose increase to 2 g daily) and clindamycin 2. on discharge patient will go with ceftriaxone alone, I would continue IV in view of the extent of the infection Subjective Date of service: 08/12/16 Principal diagnosis: Dysphagia/malnutrition Interval history: Patient believes his right arm swelling is getting better Objective - Constitutional Vitals: Vital Signs Temp Pulse Resp BP Pulse Ox 97.5 F L 58 L 22 124/58 96 08/12/16 11:20 08/12/16 11:20 08/12/16 11:20 08/12/16 11:20 08/12/16 11:20 Temperature -Last 24 Hours Temperature 97.5 F Temperature 97.5 F Temperature 98.2 F Temperature 98.0 F Temperature 98.3 F Temperature 98.3 F Temperature 98.0 F Temperature 98.1 F General appearance: Present: no acute distress, well-nourished - EENT Eyes: PERRL, EOM intact, no scleral icterus ENT: hearing intact, clear oral mucosa, poor dentition - Neck Neck: supple, normal ROM, no enlarged thyroid, no masses or JVD - Respiratory Respiratory effort: normal Respiratory: bilateral: CTA - Breasts Breasts: deferred - Cardiovascular Rhythm: regular Heart Sounds: Present: S1 & S2 Extremities: no ischemia, normal color, abnormal Extremity abnormal: edema, erythema (right arm edema, erythema, and tenderness) , tenderness, other - Gastrointestinal General gastrointestinal: Present: soft, non-tender, normal bowel sounds, other (PEG in place) Rectal Exam: deferred - Genitourinary Male genitourinary: deferred - Labs CBC & Chem 7: 08/12/16 04:30 08/12/16 04:30 Labs: Abnormal lab results 08/11/16 08/12/16 08/12/16 Range/Units 16:15 04:30 04:30 Hgb 11.4 L (11.8-15.2) gm/dl Hct 34.6 L (35.5-45.6) % Seg Neutrophils % 77.9 H (40.0-70.0) % Seg Neutrophils # 7.9 H (1.8-7.7) K/mm3 Heparin Anti-Xa Level < 0.10 L (0.3-0.7) U.I./ml Creatinine 0.7 L (0.8-1.5) mg/dL Calcium 7.7 L (8.4-10.2) mg/dL 08/12/16 Range/Units 04:30 Hgb (11.8-15.2) gm/dl Hct (35.5-45.6) % Seg Neutrophils % (40.0-70.0) % Seg Neutrophils # (1.8-7.7) K/mm3 Heparin Anti-Xa Level < 0.10 L (0.3-0.7) U.I./ml Creatinine (0.8-1.5) mg/dL Calcium (8.4-10.2) mg/dL
--- NOTE | 2016-08-12 13:29 | Discharge Summary ---
Providers - Providers Date of Admission: 07/30/16 01:40 Date of discharge: 08/12/16 Attending physician: CHELSEA RIVERA 07/31/16 10:57 PICC Line Insertion [Consult to PICC Line RN] [CONS] Urgent Reason For Exam: Vasopressors Type Line:: PICC 08/03/16 18:44 Speech Therapy Evaluation and Treat [CONS] Routine Reason For Exam: delay swallow 08/07/16 08:51 Speech Therapy Evaluation and Treat [CONS] Routine Reason For Exam: c/o cva 08/07/16 15:47 Consult to Physician [CONS] Routine Consulting Provider: SHRUTHI NARANJO Reason For Exam: persistant leukocytosis Place consult to:: seasoning mixer ID Notified:: y 08/08/16 13:07 Consult to Physician [CONS] Routine Consulting Provider: RYAN VERMA Reason For Exam: possible drainage of his rt olecranon bursa Place consult to:: Dr. Verma Notified:: Sheyla SCRUGGS Phone number called:: Was contact made?: Yes If yes, spoke with:: Roderick-answering service Time called:: 16:42 08/08/16 15:18 Consult to Physician [CONS] Routine Consulting Provider: ANGELINA THOMAS Reason For Exam: PEG placement Place consult to:: seasoning mixer GI Notified:: Sheyla SCRUGGS Phone number called:: Was contact made?: Yes If yes, spoke with:: Jasiel-answering service Time called:: 16:52 08/10/16 14:44 Consult to Dietitian/Nutrition [CONS] Routine Physician Instructions: Reason For Exam: Reason for Consult: Write/Manage Tube Feeding Primary care physician: SLURRY TANK TENDER Hospitalization Reason for admission: hypotension Condition: Stable Pertinent studies: Chest x-ray Abdominal x-ray Videofluoroscopic swallow evaluation Echo Brain MRI Elbow x-ray CT upper extremity Duplex upper extremity Procedures: PEG placement Aspiration olecranon bursa Hospital course: Sepsis with septic shock due to right upper extremity cellulitis and a group A strep bacteremia * Weaned off from pressor * Continue Rocephin (ID recommended a course of 3 weeks) * Orthopedics performed bedside aspiration of the olecranon bursa, but no fluid collection New onset A. fib with RVR * Patient was Was on Diltiazem on admission, then required amiodarone drip * Now on beta yary and digoxin for rate control and restart anticoagulation with Pradaxa Acute renal failure * Likely secondary to vasomotor nephropathy/rhabdomyolysis * Resolved with IV fluids Hypokalemia * Status post aggressive IV replacement * Resolved Rhabdomyolysis * CPK trended down with IV fluids Acute metabolic/toxic encephalopathy * Treating underlying conditions (sepsis and dehydration) * MRI of the brain did not show any acute infarct * Resolved, mental status back to baseline Left upper extremity edema/warmth * Status post PICC placement 07/31 * Doppler obtained and negative for DVT/SVT CAD Status post CABG * On beta yary, LASHONDA inhibitor, aspirin and statin Severe dilated cardiomyopathy * Echo showing dilated cardiomyopathy with EF 20-25%, abnormal diastolic function * On ACEI and metoprolol Hypertension * On lisinopril and metoprolol Hyperlipidemia * Started on Lipitor (simvastatin changed to atorvastatin by cafeteria operator due to interaction with Pradaxa) Psychiatric disorder/dementia * On Zyprexa * Supportive care Dysphagia * Did not pass swallow study (CT head showed remote left frontal temporal lobe infarct; MRI of the brain did not show any acute CVA) * PEG tube recommended by speech after barium swallow * Status post PEG placement 08/11 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 * Continue aspirin and statin Disposition: DC/TX SNF [facility] Time spent for discharge: 35 min Core Measure Documentation - Palliative Care Palliative Care/ Comfort Measures: Not Applicable - Core Measures Any of the following diagnoses?: heart failure - Heart Failure Discharge Requirements LASHONDA/ARB for LVSD if EF <40%: Yes Beta yary at discharge: Yes Exam - Physical Exam Narrative exam: Patient seen and examined: - Constitutional Vitals: Temp Pulse Resp BP Pulse Ox 97.5 F L 58 L 22 124/58 96 08/12/16 11:20 08/12/16 11:20 08/12/16 11:20 08/12/16 11:20 08/12/16 11:20 General appearance: Present: no acute distress - EENT Eyes: Present: PERRL, EOM intact. Absent: scleral icterus, conjunctival injection - Neck Neck: Present: supple, normal ROM. Absent: masses or JVD - Respiratory Respiratory effort: normal Respiratory: bilateral: CTA, negative: rhonchi, wheezing - Cardiovascular Rhythm: irregularly irregular Heart Sounds: Present: S1 & S2. Absent: systolic murmur - Extremities Extremities: no ischemia, abnormal (RUE edema and erythema improved) - Abdominal General gastrointestinal: Present: soft, non-tender, non-distended, normal bowel sounds - Integumentary Integumentary: Present: warm, dry. Absent: jaundice, rash - Psychiatric Psychiatric: other (mental status back to baseline) - Neurologic Neurologic: moves all extremities Plan Activity: advance as tolerated, fall precautions Diet: low cholesterol, low salt Follow up with: PRIMARY CARE,MD [Primary Care Provider] - 3-5 Days Prescriptions: Simvastatin [Zocor TAB] 20 mg PO QHS #30 tablet Furosemide [Lasix TAB] 20 mg PO QDAY #30 tablet Metoprolol [Lopressor TAB] 25 mg PO BID #60 tablet Lipase/Protease/Amylase [Pancreaze Dr 10,500 Unit] 1 each FEEDTUBE PRN PRN #30 capsule PRN Reason: For Clogged Feeding Tube Dabigatran [Pradaxa] 150 mg PO BID #60 capsule Pantoprazole [Protonix TAB] 40 mg PO QDAY #30 tablet cefTRIAXone/NS 2 GM/100 ML [Rocephin/Ns 2 gm/100 ml] 100 ml IV Q24H #14 bag Simple Syrup 30 ml FEEDTUBE PRN PRN #30 oral.liqd PRN Reason: Hypoglycemia Sodium Bicarbonate 325 mg FEEDTUBE PRN PRN #30 tablet PRN Reason: For Clogged Feeding Tube Lisinopril [Zestril TAB] 5 mg PO QDAY #30 tablet
[2016-08-12] MEDS ORDERED: PRADAXA PO SCH (15:00)
[2016-08-12 15:10] VITALS: BP 113/53
[2016-08-12] MEDS: ROCEPHIN/NS 2 GM/100 ML 100 ML IV SCH (17:39)
== END 2016-08-12 18:23 | DRG 871 ==
LOC: ED 19:24 → CC1 07-30 01:40 → 4A 08-02 18:11
PROVIDERS: ADMIT Internal Medicine; ATTEND Internal Medicine
PROC: 02HV33Z Insertion of Infusion Device into Superior Vena Cava, Percutaneous Approach (ICD-10-PCS; 2016-07-30)
PROC: 0DH68UZ Insertion of Feeding Device into Stomach, Via Natural or Artificial Opening Endoscopic (ICD-10-PCS; principal; 2016-08-11)
DX: A40.0 Sepsis due to streptococcus, group A (principal); R65.21 Severe sepsis with septic shock; N17.0 Acute kidney failure with tubular necrosis; G92 Toxic encephalopathy; M62.82 Rhabdomyolysis; L03.113 Cellulitis of right upper limb; I42.0 Dilated cardiomyopathy; E46 Unspecified protein-calorie malnutrition; E87.6 Hypokalemia; E78.5 Hyperlipidemia, unspecified; L40.9 Psoriasis, unspecified; I25.10 Atherosclerotic heart disease of native coronary artery without angina pectoris; I50.9 Heart failure, unspecified; I11.0 Hypertensive heart disease with heart failure; I48.0 Paroxysmal atrial fibrillation; R13.12 Dysphagia, oropharyngeal phase; G30.9 Alzheimer's disease, unspecified; F02.80 Dementia in other diseases classified elsewhere, unspecified severity, without behavioral disturbance, psychotic disturbance, mood disturbance, and anxiety; Z79.01 Long term (current) use of anticoagulants; Z79.899 Other long term (current) drug therapy; Z98.890 Other specified postprocedural states; Z95.1 Presence of aortocoronary bypass graft; Z82.49 Family history of ischemic heart disease and other diseases of the circulatory system; Z68.20 Body mass index [BMI] 20.0-20.9, adult
CPT/HCPCS: 36415; 70450; 70551; 71010; 72125; 72170; 74000; 74230; 80048; 80053; 81001; 82140; 82550; 82805; 83735; 85007; 85014; 85018; 85025; 85027; 85049; 85520; 85610; 85730; 87040; 87086; 87116; 90471; 90715; 93005; 93010; 93306; 96361; 96365; 96366; 96367; 96372; 96375; A9270-GY; C9113; G8996-GN; G8997-GN; G8998-GN; J0282; J0690; J0696; J1160; J1630; J1644; J1650; J2270; J2543; J2704; J3246; J3370; J3480; J7030; J7050; J7060